=== PATIENT | female | born 1945 | race Caucasian/White ===

== ENCOUNTER → 2021-04-01 10:09 | Outpatient (REF) | payer MEDICARE, SELFPAY | LOC: ANHLAB 10:09 | PROVIDERS: PCP Internal Medicine; Visit Provider Nurse Practitioner | DX: L92.8 Other granulomatous disorders of the skin and subcutaneous tissue (principal) | CPT/HCPCS: 88305 ==

== ENCOUNTER 2022-08-29 16:25 | Inpatient (IN) | payer MEDICARE, SELFPAY ==
[2022-08-29] VITALS (30 sets, daily range): BP systolic 103–124; BP diastolic 43–64; PULSE 51–83; RESP 14–32; TEMP 36.7; O2SAT 92–100
--- NOTE | ~2022-08-29 | XR_ITS ---
EXAMINATION: XR chest 1V portable DATE: 09/01/2022 06:00 INDICATION: Shortness of breath TECHNIQUE: frontal view of the chest was obtained. COMPARISON: Chest radiograph and chest CT dated 08/29/2022 FINDINGS: Large-bore dual-lumen right internal jugular central venous catheter with distal tip at the high righ t atrium. Increasing diffuse interstitial pattern consistent with mild pulmonary edema. Opacities in the left lower lung zone and along the right lung base which could represent small bilateral pleural effusions with associated atelectasis and/or pneumonia, left greater than right. Heart size is normal . Calcified nodule at the left lung base and calcified mediastinal lymph nodes consistent with old gr anulomatous disease. IMPRESSION: 1. Increasing pulmonary edema edema. 2. Small bilateral pleural effusions with associated atelectasis and/or pneumonia in the lower lung z ones, left greater than right. Reviewed, dictated and finalized at location A. 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 Increasing pulmonary edema edema. 2. Small bilateral pleural effusions with associated atelectasis and/or pneumon ia in the lower lung zones, left greater than right.
--- NOTE | ~2022-08-29 | CT_ITS ---
EXAMINATION: CTA chest PE protocol DATE: 08/29/2022 21:52 INDICATION: Hypoxia TECHNIQUE: Computed tomography angiography (CTA) of the chest was performed with 100 mL Omnipaque-350 intravenous contrast timed to evaluate the pulmonary arteries. Coronal maximum intensity projection 3D-reconstructions were created by the technologist. Automated exposure control and iterative reconst ruction technique were employed. Exam dose: 404.91 mGy-cm total exam DLP. COMPARISON: 08/29/2022 2 view chest FINDINGS: There is diagnostic contrast enhancement of the pulmonary arteries and no evidence of pulmo nary embolism. No thoracic aortic aneurysm. There is thoracic aortic and great vessel and coronary artery calcificat ion. Cardiomegaly. No pericardial effusion. Moderate right and mild left pleural effusions. No hilar or mediastinal mass lesion or lymphadenopathy. The dependent lingula and more prominent atelectasis in both lower lobes. 9.7 mm nonspecific opacity, posterior right upper lobe. 5 mm opacity of middle lobe. Old healed left rib fractures. IMPRESSION: No evidence of pulmonary embolism Cardiac megaly, bilateral pleural effusions Dependent left upper lobe atelectasis and prominent compressive atelectasis of both lower lobes Nonspecific 9.7 mm right upper lobe and 5 mm middle lobe lung opacities; follow-up CT imaging should be considered. Reviewed, dictated and finalized at Location A. Reviewed, dictated and finalized at location A. IMPRESSION: No evidence of pulmonary embolism Cardiac megaly, bilateral pleural effusions Dependent left upper lobe atelectasis and prominent compressive atelectasis of both lower lobes Nonspecific 9.7 mm right upper lobe and 5 mm middle lobe lung opacities; follow -up CT imaging should be considered.
--- NOTE | ~2022-08-29 | XR_ITS ---
EXAMINATION: XR chest 1V portable DATE: 09/02/2022 14:52 INDICATION: Shortness of breath postdialysis TECHNIQUE: frontal view of the chest was obtained. COMPARISON: Chest radiograph dated 09/01/2022 FINDINGS: Improvement in prior pulmonary edema with resolution of the previous increased interstitial pattern. Persistent opacities at the bilateral lower lung zones with blunting at costophrenic angles, left gre ater than right consistent with small pleural effusions and associated basilar atelectasis although p neumonia not excludable. No new airspace opacities or pneumothorax. Heart size is normal. Large-bore dual-lumen right internal jugular central venous likely dialysis catheter with distal tip near the treadwell perior cavoatrial junction. IMPRESSION: 1. Resolution of prior pulmonary edema. 2. Persistent small bilateral pleural effusions with associated bibasilar atelectasis and/or pneumoni a, left greater than right. Reviewed, dictated and finalized at location A. CABINETMAKER IMPRESSION: 1. Resolution of prior pulmonary edema. 2. Persistent small bilateral pleural effusions with associated bibasilar atele ctasis and/or pneumonia, left greater than right.
--- NOTE | ~2022-08-29 | XR_ITS ---
EXAMINATION: XR chest 2V DATE: 08/29/2022 17:24 INDICATION: Shortness of breath TECHNIQUE: PA and lateral views of the chest were obtained. COMPARISON: None FINDINGS: Opacities at the bilateral lower lung zones. This includes small bilateral pleural effusions. No pneu mothorax. Heart size is normal. Large-bore dual-lumen right internal jugular central venous catheter with distal tip at the superior cavoatrial junction. Mild thoracic spondylosis with mild anterior wed ging of a couple mid thoracic vertebral bodies. IMPRESSION: 1. Small bilateral pleural effusions. 2. Opacities in bilateral lower lung zones which could represent associated atelectasis, pneumonia an d/or mild pulmonary edema. Reviewed, dictated and finalized at location B. IMPRESSION: 1. Small bilateral pleural effusions. 2. Opacities in bilateral lower lung zones which could represent associated ate lectasis, pneumonia and/or mild pulmonary edema.
--- NOTE | 2022-08-29 16:34 | ECG_ITS ---
Measurements Intervals [place] Rate: 52 P: 60 WV: 160 QRS: 94 QRSD: 114 T: 43 QT: 481 QTc: 451 Interpretive Statements SINUS BRADYCARDIA LOW QRS VOLTAGE IN PRECORDIAL LEADS INCOMPLETE RIGHT BUNDLE BRANCH BLOCK BORDERLINE R WAVE PROGRESSION, ANTERIOR LEADS BORDERLINE T WAVE ABNORMALITY- ANTEROLAT/INF LEADS BASELINE ARTIFACT- I, II, III, AVR, AVL, V1, V5-V6 BORDERLINE ECG NO PREVIOUS ECG AVAILABLE FOR COMPARISON Electronically Signed On 08-29-2022 21:29:44 CDT by Curtis Diop D.O.
[2022-08-29 18:54] LABS: Basophils Absolute Auto 0.1 K/mm3 (0.0-0.1); Basophils Percent Auto 0.6 % (0.2-1.2); Eosinophils Absolute Auto 0.3 K/mm3 (0-0.3); Eosinophils Percent Auto 3.1 % (0-4.4); Hematocrit 31.4 % (37.0-47.0); Hemoglobin 10.1 g/dL (12.0-15.0); Immature Granulocyte Absolute 0.03 K/mm3 (0.00-0.031); Immature Granulocyte Percent A 0.4 % (0-0.5); Lymphocytes Absolute Auto 1.72 K/mm3 (0.9-3.2); Lymphocytes Percent Auto 20.5 % (18.3-44.2); Mean Corpuscular HGB Conc 32.2 g/dl (32-36); Mean Corpuscular Hemoglobin 32.5 pg (26-34); Mean Platelet Volume 10.4 fl (7.4-10.4); Monocytes Absolute Auto 0.8 K/mm3 (0.1-0.6); Neutrophils Absolute Auto 5.5 K/mm3 (1.3-6.7); Neutrophils Percent Auto 65.4 % (45.5-73.1); Platelet Count Result 288 k/mm3 (150-375); Red Blood Count 3.11 M/mm3 (4.2-5.4); Red Cell Distribution Width 17.2 % (11.5-14.5); White Blood Count 8.4 K/mm3 (4.5-10.0)
[2022-08-29 19:18] LABS: Alanine Aminotransferase 15 U/L (6-35); Albumin Level 3.7 g/dL (3.5-5.1); Alkaline Phosphatase 68 U/L (38-126); Anion Gap 9 mmol/L (8-16); Aspartate Amino Transferase 32 U/L (14-36); Bilirubin,Total 1.4 mg/dL (0.2-1.3); Blood Urea Nitrogen 6 mg/dL (7-17); Calcium 7.9 mg/dL (8.4-10.2); Carbon Dioxide 31 mmol/L (22-30); Chloride 96 mmol/L (98-107); Estimated CRCL calculation 59 ml/min; Estimated Glomerular Filt Rate > 60; Glucose 99 mg/dL (65-110); Potassium 4.2 mmol/L (3.4-5.0); Sodium 136 mmol/L (137-145)
--- NOTE | 2022-08-29 19:19 | ED.SOB ---
HPI - SOB/Dyspnea General Chief Complaint: Shortness of Breath/Dyspnea Stated Complaint: SOB Time Seen by Provider: 08/29/22 18:41 History of Present Illness HPI Narrative: This is a 77-year-old female past medical history of end-stage renal disease on dialysis Thursday, A. fib on aspirin, with a home 2 L O2 requirement, who presents emergency department with hypotension and dyspnea after dialysis. She states during dialysis her blood pressure decreased to the low 80s systolic and she became short of breath with blue appearing fingertips. She denies associated chest pain or cough. She also complains of worsening shortness of breath while walking over the past week. Related Data Home Medications Medication Instructions Recorded Confirmed amlodipine 10 mg tablet 10 mg PO DAILY 04/01/21 aspirin 81 mg tablet,delayed 81 mg PO DAILY 04/01/21 release (Vira Low Dose Aspirin) fenofibric acid (choline) 135 mg cap PO 04/01/21 capsule,delayed release fosinopril 20 mg tablet 20 mg PO BID 04/01/21 furosemide 40 mg tablet 40 mg PO DAILY 04/01/21 metoprolol tartrate 100 mg tablet 100 mg PO BID 04/01/21 simvastatin 40 mg tablet 40 mg PO DAILY 04/01/21 Allergies Allergy/AdvReac Type Severity Reaction Status Date / Time No Known Allergies Allergy Verified 04/09/21 08:31 Review of Systems Review of Systems: CONSTITUTIONAL: Denies fever, chills, or sweats. EYES: Denies visual changes, redness, or discharge. ENT: Denies rhinorrhea, congestion, sore throat, or otalgia. CARDIOVASCULAR: Denies chest pain, palpitations, or edema. RESPIRATORY: Dyspnea denies cough GASTROINTESTINAL: Denies abdominal pain, nausea, vomiting, or diarrhea. GENITOURINARY: Denies dysuria or hematuria. SKIN: Denies rash or itching. MUSCULOSKELETAL: Denies back pain, joint pain, or myalgia. NEUROLOGIC: Denies headache, numbness, dizziness, or weakness. PSYCHIATRIC: Denies anxiety or depression. [facility] Past Medical History Medical History (Updated 08/29/22 @ 23:05 by Niall Epps MD) A-fib Atrial fibrillation status post cardioversion End stage renal disease Social History Social History (Updated 04/01/21 @ 09:42 by Letty L. Martinez, RN) Smoking status: Former smoker Alcohol intake: current Alcohol use details: daily Substance use: never Substance use type: does not use Exam Narrative: GENERAL: Well-developed, well-nourished, appears uncomfortable HEAD: Normocephalic, atraumatic. EYES: PERRLA and EOMI. ENT: Nares clear, no rhinorrhea or epistaxis. Mucous membranes moist. Oropharynx without tonsillar hypertrophy exudate or other lesions. NECK: Supple. No adenopathy or masses. No carotid bruits or JVD CHEST: Bilateral rales in the posterior lower lung dodd, right greater than left, no respiratory distress. No wheezes or rhonchi, dialysis catheter in right anterior chest wall, clean dry and intact HEART: Regular rate and rhythm. No murmur heard. Normal peripheral pulses. ABDOMEN: Soft, nontender, nondistended, normal active bowel sounds. EXTREMITIES: Left upper extremity surgical AV fistula with thrill, normal range of motion. No edema. SKIN: Warm, dry, no rash. NEURO: No focal deficits. Alert and oriented x3. PSYCH: Normal mood and affect. Course Course Emergency Course: 23:00 - CT PE negative for pulmonary embolism and demonstrates bilateral pleural effusions. Labs unremarkable considering patient's end-stage renal disease with troponin of 0.013 and potassium of 4.2. EKG not concerning for ischemia or peaked T-waves. Discussed patient with hospitalist, Dr. Lindsey who accepts admission for CHF work-up and possible thoracentesis. Discussed patient with rehabilitation medicine physician, Dr. Yates who will follow. Vital Signs Vital signs: Vital Signs Temperature 98.1 F 08/29/22 16:28 Pulse Rate 54 L 08/29/22 16:28 Respiratory Rate 20 08/29/22 16:28 Blood Pressure 103/43 L 08/29/22 16:28 Pulse Oximetry
[2022-08-29 19:37] LABS: INR 1.3; Prothrombin Time 15.9 Seconds (11.1-14.7)
[2022-08-29 19:43] LABS: Troponin I 0.013 ng/mL (0.000-0.034)
[2022-08-30] VITALS (28 sets, daily range): BP systolic 104–155; BP diastolic 44–63; PULSE 52–84; RESP 14–33; TEMP 36–37.5; O2SAT 97–100; BMI 30.6
--- NOTE | 2022-08-30 | ECHO_ITS ---
Patient Info Name: Francisca Meyers Age: 77 years : 1945 Gender: Female Ht: 66 in Wt: 195 lbs BSA: 2.06 m2 HR: 68 bpm BP: 155 / 56 mmHg Heart Rhythm: Sinus Rhythm Exam Date: 08/30/2022 9:26 AM Exam Location: [facility] Patient Status: Inpatient Admit Date: 08/29/2022 Staff Ordering Physician: Niall Epps MD Document Photographer: Lucia García RDCS Attending Provider: Tony Lindsey MD Referring Physician: Mich MAYER; Exam Type: CA echo doppler color flow Study Info Indications - evaluate for chf Complete two-dimensional, color flow and Doppler transthoracic echocardiogram is performed. Summary 1. Left ventricular chamber dimension is normal. 2. Left ventricular systolic function is normal, estimated at 60-65%. 3. There is mildly increased left ventricular wall thickness. 4. The left ventricular diastolic function is grade III diastolic dysfunction. 5. E/e' 20.3 is moderately elevated. 6. Left atrial chamber dimension is moderately enlarged. 7. Right atrial chamber dimension is moderately enlarged. 8. There is no aortic valve stenosis. 9. There is mild mitral valve regurgitation. Left Ventricle Left ventricular chamber dimension is normal. Left ventricular systolic function is normal, estimated at 60-65%. There is mildly increased left ventricular wall thickness. The left ventricular diastolic function is grade III diastolic dysfunction. E/e' 20.3 is moderately elevated. Right Ventricle Right ventricular chamber dimension is normal. Right ventricular systolic function is normal. Left Atria Left atrial chamber dimension is moderately enlarged. Right Atria Right atrial chamber dimension is moderately enlarged. Aortic Valve The aortic valve is not well visualized. There is no aortic valve stenosis. There is no aortic valve regurgitation. Pulmonic Valve The pulmonic valve is not well visualized. There is mild pulmonic regurgitation. Mitral Valve The mitral valve has normal leaflets. There is mild mitral valve regurgitation. The mitral valve annulus is mildly calcified. Tricuspid Valve Unable to estimate PA systolic pressure due to poor spectral resolution of tricuspid regurgitant jet velocity. The tricuspid valve leaflets are normal. There is mild tricuspid valve regurgitation. Pericardium/Pleural There is no pericardial effusion. Left pleural effusion. The pericardium appears normal. Inferior Vena Cava Normal inferior vena cava with >50% collapse upon inspiration consistent with normal right atrial pressure, 5 mmHg. Aorta The aortic root size at the sinus of Valsalva is normal. Left Ventricular Outflow Tract Name Value Normal LVOT 2D LVOT Diameter 2.0 cm LVOT Doppler LVOT Peak Gradient 7 mmHg LVOT Mean Gradient 4 mmHg LVOT VTI 28 cm LVOT VTI/AV VTI Ratio 0.8 LVOT Stroke Volume 89 ml LVOT CO 6.9 l/min LVOT CI 3.
--- NOTE | 2022-08-30 00:42 | PC.NURSE ---
RN sent blood x3 for pt. TNI and BNP unreceived x3. @nd RN in to draw blood
[2022-08-30 01:06] LABS: SARS-CoV-2 RNA PCR Negative
[2022-08-30 01:07] LABS: NT Pro B Type Natriuretic Pept 14000 pg/mL (5-100); Troponin I 0.013 ng/mL (0.000-0.034)
--- NOTE | 2022-08-30 02:39 | ADMGEN ---
This patient, Francisca Meyers, was admitted to IMU Room 205-02 on 08/30/22 at 0215. Patient/family oriented to hospital policies and general routines including ID bracelet, bed and alarms, visiting hours, pain management, procedures, bathroom and other care routines, personal items, smoking policy, room service/diet, and visiting hours. Information on how to activate the Rapid Response Team has been discussed. Patient/Family are encouraged to report perceived risks to care and to ask questions if they do not understand what they are told or what they should do.
[2022-08-30 05:38] LABS: Basophils Absolute Auto 0.1 K/mm3 (0.0-0.1); Basophils Percent Auto 0.7 % (0.2-1.2); Eosinophils Absolute Auto 0.2 K/mm3 (0-0.3); Eosinophils Percent Auto 3.2 % (0-4.4); Hemoglobin 9.7 g/dL (12.0-15.0); Immature Granulocyte Absolute 0.02 K/mm3 (0.00-0.031); Immature Granulocyte Percent A 0.3 % (0-0.5); Lymphocytes Absolute Auto 1.41 K/mm3 (0.9-3.2); Lymphocytes Percent Auto 19.9 % (18.3-44.2); Mean Corpuscular HGB Conc 31.3 g/dl (32-36); Mean Corpuscular Volume 102.3 fl (80-100); Mean Platelet Volume 10.7 fl (7.4-10.4); Monocytes Absolute Auto 0.7 K/mm3 (0.1-0.6); Monocytes Percent Auto 9.3 % (2.6-8.5); Neutrophils Absolute Auto 4.7 K/mm3 (1.3-6.7); Neutrophils Percent Auto 66.6 % (45.5-73.1); Platelet Count Result 252 k/mm3 (150-375); Red Blood Count 3.03 M/mm3 (4.2-5.4); Red Cell Distribution Width 17.2 % (11.5-14.5); White Blood Count 7.1 K/mm3 (4.5-10.0)
[2022-08-30 05:59] LABS: Alanine Aminotransferase 14 U/L (6-35); Albumin Level 3.5 g/dL (3.5-5.1); Alkaline Phosphatase 64 U/L (38-126); Anion Gap 12 mmol/L (8-16); Aspartate Amino Transferase 27 U/L (14-36); Bilirubin,Total 1.3 mg/dL (0.2-1.3); Blood Urea Nitrogen 8 mg/dL (7-17); Calcium 7.8 mg/dL (8.4-10.2); Carbon Dioxide 29 mmol/L (22-30); Chloride 97 mmol/L (98-107); Estimated CRCL calculation 40 ml/min; Estimated Glomerular Filt Rate 44; Glucose 98 mg/dL (65-110); Potassium 3.6 mmol/L (3.4-5.0); Sodium 138 mmol/L (137-145)
--- NOTE | 2022-08-30 07:12 | PM.IMHP ---
H&P: HPI History of Present Illness Date/Time: 08/30/22 07:12 Chief Complaint: shortness of breath Narrative: Francisca Meyers is a 77-year-old female with end-stage renal disease on hemodialysis MWF, paroxysmal atrial fibrillation s/p cardioversion and Eliquis, hypertension, hypothyroidism, and COPD. She presented to the ED for evaluation of shortness of breath and hypotension during dialysis. Her blood pressure reportedly dropped to the 80s systolic and she became dyspneic with blue appearing fingertips. The patient is a fair historian. She reports being overall healthy, but did not routinely visit the doctor's office, until January of this year when she had a fall in her home. She was down on the ground for approximately 3 days before being found. She was transferred to [facility] and reports being in a medically induced coma. She is not very clear on the details of this hospitalization, but reports developing paroxysmal atrial fibrillation, a bowel infection , and was started on hemodialysis at that time. She had a left forearm AV fistula placement around 08/09/22. She reports that yesterday during HD she felt strange and almost like an anxiety attack. She endorses increasing weakness, dyspnea on exertion and shortness of breath for approximately 1-2 weeks. She reports associated orthopnea and lower extremity edema. She wears 2 liters of oxygen at night since her discharge in January. She denies cough or sputum. No fever, chills or rigors. In the ED, her vitals were temp 98.1F, HR 65, RR 31, BP 113/54, spO2 98% on 2 liters nasal cannula. Lab work was significant for WBC 7.1, H/H 9.7/31, BUN 8, creatinine 1.2, GFR 44, but otherwise stable chemistry. Troponin was mildly elevated 0.013 and BNP 14,000. Chest x-ray shows small bilateral pleural effusions and opacities in bilateral lower lungs suggesting mild pulmonary edema. CTA chest was significant for cardiomegaly, bilateral pleural effusions and nonspecific 9.7 mm right upper lobe and 5 mm right middle lobe lung opacities. She is being admitted to the IMU for further evaluation of pulmonary edema. Review of Systems Review of Systems: All systems reviewed & are unremarkable except as noted in HPI and below PMFSH Past Medical History Medical History (Updated 08/30/22 @ 14:43 by Brittany Cabrera APRN) Atrial fibrillation status post cardioversion Borderline diabetes End stage renal disease Erythropoietin deficiency anemia Hyperlipidemia Hypertension Hypothyroid Renal osteodystrophy Surgical History Surgical History (Updated 08/30/22 @ 14:18 by Brittany Cabrera APRN) AV fistula History of hysterectomy partial History of tubal ligation at 32 yo Family History Family History Sibling Adopted (not a blood relative) Father Accident at workplace Mother Breast cancer Social History Social History (Updated 08/30/22 @ 14:40 by Brittany Cabrera APRN) Social History: Patient selects her son, Maxx Ramirez, as surrogate decision maker. Smoking packs per day: 2 Smoking cigarettes per day: 40.0 Years smoked: 40 Smoking pack-years: 80.00 Smoking status: Former smoker Tobacco type: cigarettes Second hand tobacco smoke exposure: No Alcohol intake: current Drinks per week: 7 Alcohol use details: daily wine or beer Substance use: never Substance use type: does not use Has the Lack of Transportation Kept You From Medical Appointments or From Getting Medications?: No Within the Past 12 Months, Were You Worried Whether Your Food Would Run Out Before You Got Money to Buy More?: Never True What is Your Housing Situation Today?: I Have Housing Are You Worried That in the Next 2 Months, You May Not Have Your Own Housing to Live In?: No Do You Have Trouble Paying Your Heating Or Electricity Bill?: No Do You Have Trouble Paying For Medicines?: No Are You Currently Unemployed and Looking for Work?:
[2022-08-30 10:42] LABS: Phosphorus 3.7 mg/dL (2.5-4.5)
[2022-08-30] MEDS: FUROSEMIDE INJ 40 MG/4 ML VIAL IV PUSH (10:50)
[2022-08-30] MEDS: POTASSIUM CHLORIDE 20 MEQ TABLET PO (10:50)
--- NOTE | 2022-08-30 11:23 | PM.CNNEP ---
Assessment and Plan Assessment and plan (1) End stage renal disease: Code(s): N18.6 - End stage renal disease Status: Chronic Assessment and Plan: the patient has end-stage renal disease. She has been on dialysis for about 6 months or so. It is not clear what the renal disease is from. Possibly hypertension, hyperlipidemia/vascular disease, or some sort of incident involving her fall and coma. She does make a little bit of urine. Her creatinine is only 1.2 but she was just dialyzed yesterday. she looks volume overloaded. I suspect that because she is not eating she is subtly losing weight and they are not adjusting her dry weight. I will check a 24hour urine For creatinine as well to see if her renal function might be improving. This can happen tomorrow she does have fluid overloaded so I am going to do a dry ultrafiltration today. (2) A-fib: Qualifiers: Atrial fibrillation type: paroxysmal Qualified Code(s): I48.0 - Paroxysmal atrial fibrillation Code(s): I48.91 - Unspecified atrial fibrillation Status: Chronic Assessment and Plan: The patient is in sinus rhythm now. She had atrial fibrillation before and was cardioverted. (3) Pulmonary edema: Code(s): J81.1 - Chronic pulmonary edema Status: Acute Assessment and Plan: the patient has pulmonary edema. She was hypoxic on admission and is on oxygen now by nasal cannula. Will remove fluid with dialysis and see if this improves. Will also give some diuretics to see if she can make urine on her own. (4) Hypertension: Code(s): I10 - Essential (primary) hypertension Status: Acute Assessment and Plan: She is on amlodipine but also on midodrine. I am not sure what is going on here. Her blood pressure ranges from 110-155. I am going to try holding the amlodipine and the midodrine and see what happens. I will leave the midodrine as a p.r.n.. she can also have albumin as well. (5) Renal osteodystrophy: Code(s): N25.0 - Renal osteodystrophy Status: Acute Assessment and Plan: Will check a phosphorus level in the morning (6) Erythropoietin deficiency anemia: Code(s): D63.1 - Anemia in chronic kidney disease Status: Acute Assessment and Plan: I will give her a dose of EPO today History of Present Illness Reason for Consult Consult date: 08/30/22 Chief Complaint Chief complaint: Bilateral pleural effusion History of Present Illness Narrative: Omi is a very pleasant 77-year-old lady who has end-stage renal disease on dialysis on Wednesdays and Fridays per Dr. Camp in [place]. She also has hypertension, atrial fibrillation, renal osteodystrophy, anemia of chronic kidney disease, GERD, hyperlipidemia. Patient said she was okay until last January when she fell. She was apparently in a coma and ended up on dialysis she says. She has been on dialysis ever since then. She has a dialysis catheter in for access and also has a fistula in her left arm. She goes to dialysis 3 times a week. she was having problems with low blood pressures and so she was placed on midodrine a few weeks ago. This has helped and so they have been able to keep the fluid off. She does sometimes have problems with low blood pressure. Yesterday the patient was on dialysis and after she was disconnected she had a spell where she became short of breath and her fingers turned blue. She did not weigh after dialysis. During the treatment her blood pressure was quite low she says but she is not sure how much fluid the nurses dialed in to remove and if the ultrafiltration rate was reduced when she had low blood pressure. The patient does have swelling but it has been present for months. Because of this spell mentioned above she came to the emergency room. In the ER she was evaluated found to have the swelling. Chest x-ray showed flu
[2022-08-30 12:35] LABS: Hepatitis B Surface Antigen Negative (Negative)
[2022-08-30 13:10] LABS: Hepatitis B Surface Anti Res Positive
--- NOTE | 2022-08-30 13:34 | PC.NURSE ---
Pt to dialysis via bed
[2022-08-30] MEDS: MIDODRINE HCL 10 MG TABLET PO (13:55)
[2022-08-30] MEDS: SODIUM CHLORIDE 0.9% IV 1,000 ML 999 ML IV CONT (13:56)
[2022-08-30] MEDS: EPOETIN ALFA-EPBX 10,000 UNITS/ML VIAL 10000 UNITS IV PUSH (14:21)
--- NOTE | 2022-08-30 15:28 | PCPTNOTE ---
Patient in dialysis. Will check status tomorrow to attempt to complete PT evaluation.
[2022-08-30] MEDS: FUROSEMIDE 80 MG TABLET PO (17:07)
[2022-08-30] MEDS: APIXABAN 2.5 MG TABLET PO (17:07)
[2022-08-30] MEDS: METOPROLOL TARTRATE 50 MG TAB PO (22:04)
[2022-08-30] MEDS: ATORVASTATIN 40 MG TABLET PO (22:04)
[2022-08-31] VITALS (14 sets, daily range): BP systolic 96–115; BP diastolic 43–60; PULSE 54–85; RESP 14–20; TEMP 36.2–36.6; O2SAT 93–100
--- NOTE | 2022-08-31 01:09 | PC.NURSE ---
Daylight Savings Time For Daylight Savings Time Ending in the Fall - Clocks are moved back. For Daylight Savings Time Beginning in the Spring - Clocks are moved ahead. For [facility], the time of change occurs at 0200 hrs. Time is taken from the server engineer. This entry on the patient's chart recognizes the change in time reflected during documentation. Example: 2 entries for vital signs may be charted for 0200 hrs.
[2022-08-31 05:51] LABS: Albumin Level 3.2 g/dL (3.5-5.1); Anion Gap 12 mmol/L (8-16); Blood Urea Nitrogen 11 mg/dL (7-17); Calcium 7.9 mg/dL (8.4-10.2); Carbon Dioxide 30 mmol/L (22-30); Chloride 94 mmol/L (98-107); Estimated CRCL calculation 28 ml/min; Estimated Glomerular Filt Rate 29; Glucose 92 mg/dL (65-110); Phosphorus 4.3 mg/dL (2.5-4.5); Potassium 3.4 mmol/L (3.4-5.0); Sodium 136 mmol/L (137-145)
[2022-08-31] MEDS: LEVOTHYROXINE SODIUM 75 MCG TABLET PO (05:52)
[2022-08-31] MEDS: FUROSEMIDE 80 MG TABLET PO ×2 (08:50→17:21)
[2022-08-31] MEDS: POTASSIUM CHLORIDE 20 MEQ TABLET.ER 40 MEQ PO (08:50)
[2022-08-31] MEDS: APIXABAN 2.5 MG TABLET PO ×2 (08:51→17:21)
[2022-08-31] MEDS: METOPROLOL TARTRATE 50 MG TAB PO ×2 (08:51→20:44)
--- NOTE | 2022-08-31 09:30 | PM.IMPN ---
Progress Note: A&P Assessment and Plan (1) Diastolic CHF, acute on chronic: Code(s): I50.33 - Acute on chronic diastolic (congestive) heart failure Status: Acute Assessment and Plan: Patient presented with c/o shortness of breath, dyspnea on exertion, and orthopnea. BNP 14,000. CXR and CTA chest consistent with bilateral pleural effusions and pulmonary edema. Patient now requiring 2L supplemental O2 at all times, not just at HS. Nephrology consulted and appreciate recommendations. Monitor strict I/O and daily weights. Transthoracic echocardiogram shows grade 3 diastolic dysfunction, normal LV systolic function, EF 60%, moderately enlarged right and left atria. H2FPEF 86% HFpEF Obtain patient's previous hospital records from [facility] 08/31/22 Weight 84.4 kg, was 88.6 on admission. -2 liters ultrafiltration on 08/30 and 300+ mL urine in the past 24 hours. 09/01/22 Weight 84.4 kg, Chest x-ray today with increasing pulmonary edema and small bilateral pleural effusions. Awaiting HD. Patient's usual HD on Mondays, Wednesdays, and Fridays. (2) Pulmonary edema: Qualifiers: Chronicity: acute Qualified Code(s): J81.0 - Acute pulmonary edema Code(s): J81.1 - Chronic pulmonary edema Status: Acute Assessment and Plan: Secondary to above (3) Hypoxia: Code(s): R09.02 - Hypoxemia Status: Acute Assessment and Plan: Secondary to above Wean O2 as tolerated to keep spO2>92% Patient currently on room air. Stable. (4) End stage renal disease: Code(s): N18.6 - End stage renal disease Status: Chronic Assessment and Plan: On dialysis MWF. BUN 8, creatinine 1.2, GFR 44 following HD 08/30. Unknown baseline. Nephrology consulted and appreciate assistance with HD management. Monitor electrolytes and I/O 08/31/22 BUN 11, creatinine 1.7, GFR 29, 24 hour urine in process. 09/01/22 BUN 15, creatinine 2.1, GFR 23. On furosemide 80 mg BID PO with 500 mL output today. (5) A-fib: Qualifiers: Atrial fibrillation type: paroxysmal Qualified Code(s): I48.0 - Paroxysmal atrial fibrillation Code(s): I48.91 - Unspecified atrial fibrillation Status: Chronic Assessment and Plan: Patient reports diagnosis of paroxysmal afib with January 2022 admission s/p electrical cardioversion. Continue renally dosed Eliquis 2.5 mg BID Continue metoprolol tartrate at lowered dose 50 mg BID due to hypotension with HD and plan for diuresis. 08/31/22 BP 107/43 to 96/60 Stable. (6) Hypothyroid: Qualifiers: Hypothyroidism type: acquired Qualified Code(s): E03.9 - Hypothyroidism, unspecified Code(s): E03.9 - Hypothyroidism, unspecified Status: Chronic Assessment and Plan: Chronic, continue levothyroxine. TSH 0.347, free T4 2.17 and within normal limits, Total T3 0.79 (7) Hypertension: Qualifiers: Hypertension type: primary hypertension Qualified Code(s): I10 - Essential (primary) hypertension Code(s): I10 - Essential (primary) hypertension Status: Chronic Assessment and Plan: Patient presented following hypotension during HD. BP 118/60, HR 66. Continue metoprolol at lowered dose. Hold amlodipine and midodrine. as above (8) Hyperlipidemia: Qualifiers: Hyperlipidemia type: mixed hyperlipidemia Qualified Code(s): E78.2 - Mixed hyperlipidemia Code(s): E78.5 - Hyperlipidemia, unspecified Status: Chronic Assessment and Plan: Chronic, stable. 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 H/H 9.05/25. Dialysis patient. Epogen per Nephrology. Stable. (10) Renal osteodystrophy: Code(s): N25.0 - Renal osteodystrophy Status: Chronic Assessment and Plan: Per nephrology Plan CODE STATUS: F
--- NOTE | 2022-08-31 10:00 | PM.PNNEP ---
Progress Note: A&P Assessment and Plan (1) End stage renal disease: Code(s): N18.6 - End stage renal disease Status: Chronic Assessment and Plan: the patient has end-stage renal disease. She has been on dialysis for about 6 months or so. It is not clear what the renal disease is from. Possibly hypertension, hyperlipidemia/vascular disease, or some sort of incident involving her fall and coma. She does make a little bit of urine. she is incontinent. Will have them use a David catheter to get the fluid off. Will check a renal panel tomorrow and may do dialysis if the numbers are worse. Meantime will wait for the 24hour urine and see if she is able to come off dialysis. (2) A-fib: Qualifiers: Atrial fibrillation type: paroxysmal Qualified Code(s): I48.0 - Paroxysmal atrial fibrillation Code(s): I48.91 - Unspecified atrial fibrillation Status: Chronic Assessment and Plan: The patient is in sinus rhythm now. She had atrial fibrillation before and was cardioverted. (3) Pulmonary edema: Qualifiers: Chronicity: acute Qualified Code(s): J81.0 - Acute pulmonary edema Code(s): J81.1 - Chronic pulmonary edema Status: Acute Assessment and Plan: the patient has pulmonary edema. This is better. She is on furosemide 80 twice a day (4) Hypertension: Qualifiers: Hypertension type: primary hypertension Qualified Code(s): I10 - Essential (primary) hypertension Code(s): I10 - Essential (primary) hypertension Status: Chronic Assessment and Plan: her blood pressure is doing fine off the amlodipine. She got a dose of midodrine yesterday to prevent the blood pressure from dropping on dialysis and her blood pressure did fine. (5) Renal osteodystrophy: Code(s): N25.0 - Renal osteodystrophy Status: Chronic Assessment and Plan: Phosphorus is fine (6) Erythropoietin deficiency anemia: Code(s): D63.1 - Anemia in chronic kidney disease Status: Chronic Assessment and Plan: check CBC in the morning Subjective Date/time seen: 08/31/22 10:00 Interval history: Patient feels good today. No episodes of shortness of breath since taking fluid off yesterday. No chest pain. Review of Systems Cardiovascular: Cardiovascular: Reports no additional cardiovascular complaints Respiratory: Respiratory: Reports no additional respiratory complaints Gastrointestinal: Gastrointestinal: Reports no additional gastrointestinal complaints Genitourinary: Genitourinary: Reports no additional female genitourinary complaints Exam Narrative: WDWN in NAD skin no rash head ncat lungs clear cor reg no rub abd BS+ nontender and soft ext 1+ bilateral edema. Objective Data Vital Signs Vital Signs: Vital Signs - 24 hr 08/30/22 12:00 08/30/22 12:00 08/30/22 12:00 Temperature 37.1 C Pulse Rate 66 66 Respiratory Rate 14 Blood Pressure 110/47 L Pulse Oximetry 100 100 Oxygen Delivery Nasal Cannula Oxygen Flow Rate 2 08/30/22 13:53 08/30/22 13:40 08/30/22 13:40 Temperature 36.7 C Pulse Rate 63 62 Respiratory Rate 18 Blood Pressure 118/53 L 118/53 L Pulse Oximetry Oxygen Delivery Oxygen Flow Rate 2 08/30/22 14:10 08/30/22 14:30 08/30/22 14:00 Temperature Pulse Rate 66 60 64 Respiratory Rate Blood Pressure 118/60 115/57 L Pulse Oximetry Oxygen Delivery Oxygen Flow Rate 08/30/22 14:50 08/30/22 15:10 08/30/22 15:30 Temperature Pulse Rate 62 62 57 L Respiratory Rate Blood Pressure 121/58 L 130/63 124/63 Pulse Oximetry Oxygen Delivery Oxygen Flow Rate 08/30/22 15:53 08/30/22 16:03 08/30/22 16:00 Temperature 36.6 C 36.0 C L Pulse Rate 65 57 L 68 Respiratory Rate 16 16 Blood Pressure 138/58 L 115/57 L 120/54 L Pulse Oximetry 100 Oxygen Delivery Oxygen Flow Rate
[2022-08-31] MEDS: ATORVASTATIN 40 MG TABLET PO (20:44)
[2022-09-01] VITALS (12 sets, daily range): BP systolic 104–128; BP diastolic 47–88; PULSE 55–83; RESP 20–26; TEMP 36–36.8; O2SAT 94–100
[2022-09-01 04:54] LABS: Hematocrit 32.6 % (37.0-47.0); Hemoglobin 10.1 g/dL (12.0-15.0); Mean Corpuscular Hemoglobin 31.8 pg (26-34); Mean Corpuscular Volume 102.5 fl (80-100); Mean Platelet Volume 10.4 fl (7.4-10.4); Platelet Count Result 260 k/mm3 (150-375); Red Blood Count 3.18 M/mm3 (4.2-5.4); Red Cell Distribution Width 16.6 % (11.5-14.5); White Blood Count 7.1 K/mm3 (4.5-10.0)
[2022-09-01 05:04] LABS: Albumin Level 3.3 g/dL (3.5-5.1); Anion Gap 12 mmol/L (8-16); Blood Urea Nitrogen 15 mg/dL (7-17); Calcium 8.5 mg/dL (8.4-10.2); Carbon Dioxide 31 mmol/L (22-30); Chloride 94 mmol/L (98-107); Estimated CRCL calculation 23 ml/min; Estimated Glomerular Filt Rate 23; Glucose 97 mg/dL (65-110); Phosphorus 4.1 mg/dL (2.5-4.5); Potassium 3.6 mmol/L (3.4-5.0); Sodium 137 mmol/L (137-145)
[2022-09-01 05:54] LABS: Thyroid Stimulating Hormone Reflex 0.347 uIU/mL (0.465-4.68)
[2022-09-01] MEDS: LEVOTHYROXINE SODIUM 75 MCG TABLET PO (06:06)
[2022-09-01 06:43] LABS: Free T4 Free Thyroxine Reflex 2.17 ng/dL (0.78-2.19)
[2022-09-01 07:50] LABS: Total Triiodothyronine (T3) 0.79 NG/ML (0.97-1.69)
[2022-09-01] MEDS: POTASSIUM CHLORIDE 20 MEQ TABLET.ER 40 MEQ PO (09:03)
[2022-09-01] MEDS: APIXABAN 2.5 MG TABLET PO ×2 (09:03→17:09)
[2022-09-01] MEDS: FUROSEMIDE 80 MG TABLET PO ×2 (09:04→17:09)
[2022-09-01] MEDS: METOPROLOL TARTRATE 50 MG TAB PO ×2 (09:04→20:25)
--- NOTE | 2022-09-01 11:52 | P.PNNP_ITS ---
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 * plan HD today but if unable given number of patient's requirng dialysis today, will plan first thing in AM (2) Pulmonary edema: Qualifiers: Chronicity: acute Qualified Code(s): J81.0 - Acute pulmonary edema Code(s): J81.1 - Chronic pulmonary edema Status: Acute Assessment and Plan: * as noted by admission CXR as well as CXR this AM * continue diuretic therapy * fluid removal/ultrafiltration as tolerated by hemodynamics * follow respiratory status (3) Hypertension: Qualifiers: Hypertension type: primary hypertension Qualified Code(s): I10 - Essential (primary) hypertension Code(s): I10 - Essential (primary) hypertension Status: Chronic Assessment and Plan: * BP medications on hold at this time * use midodrine and albumin for relative hypotension * follow trend of hemodynamics (4) Erythropoietin deficiency anemia: Code(s): D63.1 - Anemia in chronic kidney disease Status: Chronic Assessment and Plan: * due to dialysis dependence * Epogen with HD * follow trend of H/H Will continue to follow. Subjective Date/time seen: 09/01/22 11:52 Chart reviewed -- assuming care from Dr. Yates; breathing appears to be doing better at the time of my visit; no apparent distress voiced at this time; no issues/events overnight or earlier this morning; some urine output noted with use of diuretic therapy; CXR results noted this AM. Exam Narrative: General: elderly WD/WN female in NAD Heart: normal S1 and S2; no rub Lungs: coarse with few bibasilar crackles Abdomen: soft, nontender, nondistended, positive bowel sounds Extremities: no cyanosis or clubbing; 1+ edema Skin: warm and dry Objective Data Vital Signs Vital Signs: Vital Signs Temp Pulse Resp BP Pulse Ox O2 Del Method 09/01/22 11:51 36.6 C 55 L 20 104/60 94 09/01/22 08:00 Room Air 09/01/22 08:00 70 09/01/22 08:00 36.0 C L 67 26 H 128/47 L 95 09/01/22 06:00 61 09/01/22 04:00 68 09/01/22 04:00 36.8 C 68 20 111/48 L 98 09/01/22 02:00 62 09/01/22 00:00 62 08/31/22 23:50 36.2 C L 63 18 113/45 L 98 08/31/22 20:00 85 20 100 Room Air 08/31/22 20:00 85 08/31/22 20:44 85 08/31/22 20:00 36.4 C 68 20 115/44 L 100 Intake/Output Intake/Output: Intake & Output 08/30/22 08/31/22 08/31/22
--- NOTE | 2022-09-01 11:52 | PM.PNNEP ---
Progress Note: A&P Assessment and Plan (1) End stage renal disease: Code(s): N18.6 - End stage renal disease Status: Chronic Assessment and Plan: has been on dialysis for the last 6 months hospitalized at 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 plan HD today but if unable given number of patient's requirng dialysis today, will plan first thing in AM (2) Pulmonary edema: Qualifiers: Chronicity: acute Qualified Code(s): J81.0 - Acute pulmonary edema Code(s): J81.1 - Chronic pulmonary edema Status: Acute Assessment and Plan: as noted by admission CXR as well as CXR this AM continue diuretic therapy fluid removal/ultrafiltration as tolerated by hemodynamics follow respiratory status (3) Hypertension: Qualifiers: Hypertension type: primary hypertension Qualified Code(s): I10 - Essential (primary) hypertension Code(s): I10 - Essential (primary) hypertension Status: Chronic Assessment and Plan: BP medications on hold at this time use midodrine and albumin for relative hypotension follow trend of hemodynamics (4) Erythropoietin deficiency anemia: Code(s): D63.1 - Anemia in chronic kidney disease Status: Chronic Assessment and Plan: due to dialysis dependence Epogen with HD follow trend of H/H Will continue to follow. Subjective Date/time seen: 09/01/22 11:52 Chart reviewed -- assuming care from Dr. Yates; breathing appears to be doing better at the time of my visit; no apparent distress voiced at this time; no issues/events overnight or earlier this morning; some urine output noted with use of diuretic therapy; CXR results noted this AM. Exam Narrative: General: elderly WD/WN female in NAD Heart: normal S1 and S2; no rub Lungs: coarse with few bibasilar crackles Abdomen: soft, nontender, nondistended, positive bowel sounds Extremities: no cyanosis or clubbing; 1+ edema Skin: warm and dry Objective Data Vital Signs Vital Signs: Vital Signs Temp Pulse Resp BP Pulse Ox O2 Del Method 09/01/22 11:51 36.6 C 55 L 20 104/60 94 09/01/22 08:00 Room Air 09/01/22 08:00 70 09/01/22 08:00 36.0 C L 67 26 H 128/47 L 95 09/01/22 06:00 61 09/01/22 04:00 68 09/01/22 04:00 36.8 C 68 20 111/48 L 98 09/01/22 02:00 62 09/01/22 00:00 62 08/31/22 23:50 36.2 C L 63 18 113/45 L 98 08/31/22 20:00 85 20 100 Room Air 08/31/22 20:00 85 08/31/22 20:44 85 08/31/22 20:00 36.4 C 68 20 115/44 L 100 Intake/Output Intake/Output: Intake & Output 08/30/22 08/31/22 08/31/22 09/01/22 00:59 00:59 23:59 23:59 Intake Total 740 Output Total 500 Balance 240 Meds/Results Medications: Active Medications Generic Name Dose Route Start Last Admin Trade Name Freq PRN Reason Stop Dose Admin Acetaminophen 650 mg 08/30/22 10:15 Acetaminophen 325 Mg Tablet PO Q4H PRN Mild Pain (1-3) or Fever Apixaban 2.5 mg 08/30/22 17:00 09/01/22 09:03 Apixaban 2.5 Mg Tablet PO 2.5 mg BID RIMMA Administration Atorvastatin Calcium 40 mg 08/30/22 21:00 08/31/22 20:44 Atorvastatin 40 Mg Tablet PO 40 mg HS RIMMA Administration Epoetin Freddie-epbx 4,000 units 09/01/22 23:29 Epoetin Freddie-Epbx 4,000 Units/Ml Vial IV PUSH 09/01/22 23:3
[2022-09-01] MEDS: ATORVASTATIN 40 MG TABLET PO (20:24)
[2022-09-02] VITALS (19 sets, daily range): BP systolic 85–146; BP diastolic 36–61; PULSE 58–84; RESP 16–22; TEMP 34.4–36.7; O2SAT 99–100
[2022-09-02 05:14] LABS: Albumin Level 3.3 g/dL (3.5-5.1); Anion Gap 9 mmol/L (8-16); Blood Urea Nitrogen 17 mg/dL (7-17); Calcium 8.5 mg/dL (8.4-10.2); Carbon Dioxide 29 mmol/L (22-30); Chloride 96 mmol/L (98-107); Estimated CRCL calculation 24 ml/min; Estimated Glomerular Filt Rate 24; Glucose 95 mg/dL (65-110); Magnesium 1.6 mg/dL (1.6-2.3); Potassium 3.8 mmol/L (3.4-5.0); Sodium 134 mmol/L (137-145)
[2022-09-02] MEDS: LEVOTHYROXINE SODIUM 75 MCG TABLET PO (05:36)
[2022-09-02] MEDS: APIXABAN 2.5 MG TABLET PO (08:30)
[2022-09-02] MEDS: MIDODRINE HCL 10 MG TABLET PO (08:36)
[2022-09-02] MEDS: EPOETIN ALFA-EPBX 4,000 UNITS/ML VIAL 4000 UNITS IV PUSH (09:40)
[2022-09-02] MEDS: SODIUM CHLORIDE 0.9% IV 1,000 ML 999 ML IV CONT (09:40)
--- NOTE | 2022-09-02 09:57 | P.PNNP_ITS ---
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/dialysis due to poor urine output with no response to diuretics and azotemia * during hospital stay, despite low creatinine, unable to maintain eu volemia without dialysis * follow-up on 24hr urine collection results * however, based on CXR results and history, it would seem she continues to need dialysis to maintain euvolemia (and necessity of fluid removal) * HD today and eventually transition back to M/W/F schedule (2) Pulmonary edema: Qualifiers: Chronicity: acute Qualified Code(s): J81.0 - Acute pulmonary edema Code(s): J81.1 - Chronic pulmonary edema Status: Acute Assessment and Plan: * as noted by admission CXR as well as CXR yesterday * continue diuretic therapy (since she has some residual kidney function) * continue fluid removal/ultrafiltration as tolerated by hemodynamics * follow respiratory status (3) Hypertension: Qualifiers: Hypertension type: primary hypertension Qualified Code(s): I10 - Essential (primary) hypertension Code(s): I10 - Essential (primary) hypertension Status: Chronic Assessment and Plan: * BP medications on hold at this time * use midodrine and albumin for relative hypotension * follow trend of hemodynamics (4) Erythropoietin deficiency anemia: Code(s): D63.1 - Anemia in chronic kidney disease Status: Chronic Assessment and Plan: * due to dialysis dependence * Epogen with HD * follow trend of H/H Not opposed to discharge from renal perspective if otherwise medically stable -- she can resume her outpatient dialysis schedule tomorrow at her outpatient dialysis [facility]. Will continue to follow. Subjective Date/time seen: 09/02/22 09:57 Tolerating hemodialysis/UF treatment at the time of my visit (seen on HD at 9:50AM); CXR still with evidence of fluid despite diuretic therapy and negative fluid balance (although renal function relatively stable); furthermore, noted tachypenia by HD nurse on arrival to HD treatment room; no distress currently. Exam Narrative: General: elderly WD/WN female in NAD Heart: normal S1 and S2; no rub Lungs: coarse with bibasilar crackles Abdomen: soft, nontender, nondistended, positive bowel sounds Extremities: no cyanosis or clubbing; 1+ edema Skin: warm and intact Objective Data Vital Signs Vital Signs: Vital Signs Temp Pulse Resp BP Pulse Ox O2 Del Method O2 Flow Rate 09/02/22 09:50 72 93/52 L 09/02/22 09:30 69 107/54 L 09/02/22 09:10 74 119/54 L 09/02/22 08:40 36.7 C 72 22 H 146/55 H 09/02/22 08:54 71 116/61 09/02/22 08:00 36.6 C 64 20 115/53 L 100 09/02/22 04:00 36.7 C 68 18 113/51 L 99 09/02/22 04:00 62 09/02/22 02:00 58 L 09/02/22 00:00 59 L 09/02/22 00:00 36.1 C L 61 20 99/61 L 100 09/01/22 22:00 65
--- NOTE | 2022-09-02 09:57 | PM.PNNEP ---
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 due to poor urine output with no response to diuretics and azotemia during hospital stay, despite low creatinine, unable to maintain euvolemia without dialysis follow-up on 24hr urine collection results however, based on CXR results and history, it would seem she continues to need dialysis to maintain euvolemia (and necessity of fluid removal) HD today and eventually transition back to M/W/F schedule (2) Pulmonary edema: Qualifiers: Chronicity: acute Qualified Code(s): J81.0 - Acute pulmonary edema Code(s): J81.1 - Chronic pulmonary edema Status: Acute Assessment and Plan: as noted by admission CXR as well as CXR yesterday continue diuretic therapy (since she has some residual kidney function) continue fluid removal/ultrafiltration as tolerated by hemodynamics follow respiratory status (3) Hypertension: Qualifiers: Hypertension type: primary hypertension Qualified Code(s): I10 - Essential (primary) hypertension Code(s): I10 - Essential (primary) hypertension Status: Chronic Assessment and Plan: BP medications on hold at this time use midodrine and albumin for relative hypotension follow trend of hemodynamics (4) Erythropoietin deficiency anemia: Code(s): D63.1 - Anemia in chronic kidney disease Status: Chronic Assessment and Plan: due to dialysis dependence Epogen with HD follow trend of H/H Not opposed to discharge from renal perspective if otherwise medically stable -- she can resume her outpatient dialysis schedule tomorrow at her outpatient dialysis [facility]. Will continue to follow. Subjective Date/time seen: 09/02/22 09:57 Tolerating hemodialysis/UF treatment at the time of my visit (seen on HD at 9:50AM); CXR still with evidence of fluid despite diuretic therapy and negative fluid balance (although renal function relatively stable); furthermore, noted tachypenia by HD nurse on arrival to HD treatment room; no distress currently. Exam Narrative: General: elderly WD/WN female in NAD Heart: normal S1 and S2; no rub Lungs: coarse with bibasilar crackles Abdomen: soft, nontender, nondistended, positive bowel sounds Extremities: no cyanosis or clubbing; 1+ edema Skin: warm and intact Objective Data Vital Signs Vital Signs: Vital Signs Temp Pulse Resp BP Pulse Ox O2 Del Method O2 Flow Rate 09/02/22 09:50 72 93/52 L 09/02/22 09:30 69 107/54 L 09/02/22 09:10 74 119/54 L 09/02/22 08:40 36.7 C 72 22 H 146/55 H 09/02/22 08:54 71 116/61 09/02/22 08:00 36.6 C 64 20 115/53 L 100 09/02/22 04:00 36.7 C 68 18 113/51 L 99 09/02/22 04:00 62 09/02/22 02:00 58 L 09/02/22 00:00 59 L 09/02/22 00:00 36.1 C L 61 20 99/61 L 100 09/01/22 22:00 65 09/01/22 20:00 65 20 100 Nasal Cannula 2 09/01/22 20:00 65 09/01/22 20:00 36.8 C 70 20 123/88 100 09/01/22 20:25 83 09/01/22 16:00 71 09/01/22 12:00 59 L 09/01/22 15:58 36.8 C 65 20 116/49 L 97 09/01/22 11:51 36.6 C 55 L 20 104/60 94 Intake/Output Intake/Output: Intake & Output 08/31/22 08/31/22 09/01/22 09/02/22 00:59 23:59 23:59 23:59 Intake Total 1040 240 Output Total 1700 1550 Balance -660 -1310 Meds/Results Medications: Active Medications Generic Name Dose Route Start Last Admin Trade Name Freq PRN Re
--- NOTE | 2022-09-02 10:36 | PC.NURSE ---
0832-to dialysis room for treatment via bed accompanied by staff
[2022-09-02] MEDS: POTASSIUM CHLORIDE 20 MEQ TABLET.ER 40 MEQ PO (12:16)
[2022-09-02] MEDS: FUROSEMIDE 80 MG TABLET PO (12:16)
[2022-09-02] MEDS: METOPROLOL TARTRATE 50 MG TAB PO (12:17)
--- NOTE | 2022-09-02 14:24 | PM.DS ---
DS: Admitting Diagnosis Discharge Date 09/02/22 1424 Admitting Diagnosis Diastolic CHF, acute on chronic exacerbation Pulmonary edema Hypoxia End stage renal disease Chronic A-fib Hypothyroid Hypertension Hyperlipidemia Erythropoietin deficiency anemia Renal osteodystrophy DS: Discharge Diagnosis Discharge Diagnosis (1) Diastolic CHF, acute on chronic: Code(s): I50.33 - Acute on chronic diastolic (congestive) heart failure Status: Acute (2) Hypoxia: Code(s): R09.02 - Hypoxemia Status: Acute (3) End stage renal disease: Code(s): N18.6 - End stage renal disease Status: Chronic (4) A-fib: Qualifiers: Atrial fibrillation type: paroxysmal Qualified Code(s): I48.0 - Paroxysmal atrial fibrillation Code(s): I48.91 - Unspecified atrial fibrillation Status: Chronic (5) Hypothyroid: Qualifiers: Hypothyroidism type: acquired Qualified Code(s): E03.9 - Hypothyroidism, unspecified Code(s): E03.9 - Hypothyroidism, unspecified Status: Chronic (6) Hypertension: Qualifiers: Hypertension type: primary hypertension Qualified Code(s): I10 - Essential (primary) hypertension Code(s): I10 - Essential (primary) hypertension Status: Chronic (7) Hyperlipidemia: Qualifiers: Hyperlipidemia type: mixed hyperlipidemia Qualified Code(s): E78.2 - Mixed hyperlipidemia Code(s): E78.5 - Hyperlipidemia, unspecified Status: Chronic (8) Erythropoietin deficiency anemia: Code(s): D63.1 - Anemia in chronic kidney disease Status: Chronic (9) Renal osteodystrophy: Code(s): N25.0 - Renal osteodystrophy Status: Chronic DS: Summary Hospital Course Reason for hospitalization: shortness of breath Hospital Course: Francisca Meyers is a 77-year-old female with end-stage renal disease on hemodialysis MWF, paroxysmal atrial fibrillation s/p cardioversion and Eliquis, hypertension, hypothyroidism, and COPD. She presented to the ED for evaluation of shortness of breath and hypotension during dialysis. Her blood pressure reportedly dropped to the 80s systolic and she became dyspneic with blue appearing fingertips. The patient is a fair historian. She reported being overall healthy, but did not routinely visit the doctor's office, until January of this year when she had a fall in her home. She was down on the ground for approximately 3 days before being found. She was transferred to [facility] and reports being in a medically induced coma. She is not very clear on the details of this hospitalization, but reported developing paroxysmal atrial fibrillation, a bowel infection , and was started on hemodialysis at that time. She had a left forearm AV fistula placement around 08/09/22. She reported that during HD she felt strange and almost like an anxiety attack. She endorsed increasing weakness, dyspnea on exertion and shortness of breath for approximately 1-2 weeks. She reported associated orthopnea and lower extremity edema. She wears 2 liters of oxygen at night since her discharge in January, but not typically during the day. She denied cough or sputum. No fever, chills or rigors. In the ED, her vitals were temp 98.1F, HR 65, RR 31, BP 113/54, spO2 98% on 2 liters nasal cannula. Lab work was significant for WBC 7.1, H/H 9.7/31, BUN 8, creatinine 1.2, GFR 44, but otherwise stable chemistry. Troponin was mildly elevated 0.013 and BNP 14,000. Chest x-ray shows small bilateral pleural effusions and opacities in bilateral lower lungs suggesting mild pulmonary edema. CTA chest was significant for cardiomegaly, bilateral pleural effusions and nonspecific 9.7 mm right upper lobe and 5 mm right middle lobe lung opacities. She was admitted to the IMU for further evaluation of pulmonary edema. Diastolic CHF, acute on chronic Patient presented with c/o shortness of breath, dyspnea on exertion, and orthopnea. BNP 14,000. C
[2022-09-02 18:29] LABS: Collection Time Urine 24 HOURS
[2022-09-02 19:28] LABS: Patient Weight 186 Lbs; Total Volume 24 Hour Urine 2000 ml
[2022-09-02 19:29] LABS: Total Volume 24 Hour Urine 2000 ml
[2022-09-02 19:38] LABS: Creatinine Clearance Urine 23.4 ml/min (75-125)
[2022-09-02 19:39] LABS: Creatinine 24 Hour Urine 0.6 gm/24 (0.8-1.8); Creatinine Urine 32.1 mg/dL
--- NOTE | 2022-09-09 21:43 | PM.IMPN ---
Progress Note: A&P Assessment and Plan (1) Diastolic CHF, acute on chronic: Code(s): I50.33 - Acute on chronic diastolic (congestive) heart failure Status: Acute Assessment and Plan: Patient presented with c/o shortness of breath, dyspnea on exertion, and orthopnea. BNP 14,000. CXR and CTA chest consistent with bilateral pleural effusions and pulmonary edema. Patient now requiring 2L supplemental O2 at all times, not just at HS. Nephrology consulted and appreciate recommendations. Monitor strict I/O and daily weights. Transthoracic echocardiogram shows grade 3 diastolic dysfunction, normal LV systolic function, EF 60%, moderately enlarged right and left atria. H2FPEF 86% HFpEF Obtain patient's previous hospital records from [facility] 08/31/22 Weight 84.4 kg, was 88.6 on admission. -2 liters ultrafiltration on 08/30 and 300+ mL urine in the past 24 hours. 09/01/22 Weight 84.4 kg, Chest x-ray today with increasing pulmonary edema and small bilateral pleural effusions. Awaiting HD. Patient's usual HD on Mondays, Wednesdays, and Fridays. (2) Hypoxia: Code(s): R09.02 - Hypoxemia Status: Acute Assessment and Plan: Secondary to above Wean O2 as tolerated to keep spO2>92% Patient currently on room air. Stable. (3) End stage renal disease: Code(s): N18.6 - End stage renal disease Status: Chronic Assessment and Plan: On dialysis MWF. BUN 8, creatinine 1.2, GFR 44 following HD 08/30. Unknown baseline. Nephrology consulted and appreciate assistance with HD management. Monitor electrolytes and I/O 08/31/22 BUN 11, creatinine 1.7, GFR 29, 24 hour urine in process. 09/01/22 BUN 15, creatinine 2.1, GFR 23. On furosemide 80 mg BID PO with 500 mL output today. (4) A-fib: Qualifiers: Atrial fibrillation type: paroxysmal Qualified Code(s): I48.0 - Paroxysmal atrial fibrillation Code(s): I48.91 - Unspecified atrial fibrillation Status: Chronic Assessment and Plan: Patient reports diagnosis of paroxysmal afib with January 2022 admission s/p electrical cardioversion. Continue renally dosed Eliquis 2.5 mg BID Continue metoprolol tartrate at lowered dose 50 mg BID due to hypotension with HD and plan for diuresis. Stable. (5) Hypothyroid: Qualifiers: Hypothyroidism type: acquired Qualified Code(s): E03.9 - Hypothyroidism, unspecified Code(s): E03.9 - Hypothyroidism, unspecified Status: Chronic Assessment and Plan: Chronic, continue levothyroxine. TSH 0.347, free T4 2.17 and within normal limits, Total T3 0.79 (6) Hypertension: Qualifiers: Hypertension type: primary hypertension Qualified Code(s): I10 - Essential (primary) hypertension Code(s): I10 - Essential (primary) hypertension Status: Chronic Assessment and Plan: Patient presented following hypotension during HD. Continue metoprolol at lowered dose. Hold amlodipine and midodrine. as above (7) Hyperlipidemia: Qualifiers: Hyperlipidemia type: mixed hyperlipidemia Qualified Code(s): E78.2 - Mixed hyperlipidemia Code(s): E78.5 - Hyperlipidemia, unspecified Status: Chronic Assessment and Plan: Chronic, stable. Continue atorvastatin (8) Erythropoietin deficiency anemia: Code(s): D63.1 - Anemia in chronic kidney disease Status: Chronic Assessment and Plan: Chronic, stable. Dialysis patient. Epogen per Nephrology. Stable. (9) Renal osteodystrophy: Code(s): N25.0 - Renal osteodystrophy Status: Chronic Assessment and Plan: Per nephrology Plan CODE STATUS: FULL CODE Disposition: Home with her sister when medically stable. Time Spent With Patient Time with patient: 15 - 25 minutes Subjective Date/time seen: 09/09/22 21:43 LATE ENTRY FOR 09/01/22 No new complaints or overnight events. Her breathing is improving. She is awaiting HD thi
== END 2022-09-02 15:27 | disposition home or self-care (01) | DRG 291 ==
LOC: ANHED 23:05 → ANHIMU 08-30 01:13
PROVIDERS: Internal Medicine Nephrology; Admitting Provider Internal Medicine; Emergency Provider Preventive Medicine Aerospace Medicine; PCP Internal Medicine; Visit Provider Nurse Practitioner Family
DX: I13.2 Hypertensive heart and chronic kidney disease with heart failure and with stage 5 chronic kidney disease, or end stage renal disease (principal); I50.33 Acute on chronic diastolic (congestive) heart failure; N18.6 End stage renal disease; D63.1 Anemia in chronic kidney disease; E03.9 Hypothyroidism, unspecified; E78.2 Mixed hyperlipidemia; I95.3 Hypotension of hemodialysis; I48.0 Paroxysmal atrial fibrillation; J44.9 Chronic obstructive pulmonary disease, unspecified; N25.0 Renal osteodystrophy; R73.03 Prediabetes; R09.02 Hypoxemia; Z87.891 Personal history of nicotine dependence; Z20.822 Contact with and (suspected) exposure to COVID-19; Z99.2 Dependence on renal dialysis; Z79.01 Long term (current) use of anticoagulants; Z99.81 Dependence on supplemental oxygen; Z90.710 Acquired absence of both cervix and uterus
CPT/HCPCS: 36415; 71045; 71046; 71275; 80053; 80069; 81050; 82570; 82575; 83735; 83880; 84100; 84439; 84443; 84480; 84484; 85025; 85027; 85610; 86706; 87040; 87340; 93005; 93306; 96374; 96375; 97161; 97165; 99285; A9270; G0257; G0378; J1644; J1940; J7030; Q5105; Q9967; U0003; U0005

== ENCOUNTER 2024-08-07 02:03 | Inpatient (IN) | payer MEDICARE, SELFPAY ==
[2024-08-07] VITALS (19 sets, daily range): BP systolic 95–128; BP diastolic 40–105; PULSE 55–91; RESP 16–29; TEMP 36.7–37.5; O2SAT 93–99; BMI 33.4; BMI 33.7
--- NOTE | ~2024-08-07 | US_ITS ---
EXAMINATION: US soft tissue UE LT DATE: 08/09/2024 17:09 INDICATION: Bacteremia. TECHNIQUE: Multiple grayscale and Doppler ultrasound images of the left upper limb were obtained. COMPARISON: None FINDINGS: There is a patent dialysis graft in the left upper extremity. There is no abnormal mass or abscess. IMPRESSION: 1. No abnormal mass or abscess. Reviewed, dictated and finalized at location A.
--- NOTE | ~2024-08-07 | XR_ITS ---
EXAMINATION: XR chest 1V portable DATE: 08/12/2024 07:45 INDICATION: Bacteremia, shortness of breath. COPD. TECHNIQUE: frontal view of the chest was obtained. COMPARISON: Chest radiograph dated 08/07/2024 FINDINGS: Unchanged small left pleural effusion with associated left basilar atelectasis. Slight interval progr ession in asymmetric increased interstitial pattern in the right lower lung zone which could represen t asymmetric mild pulmonary edema or pneumonia. A few peripheral linear opacities at the left mid mikey g zone and right costophrenic angle which could be due to atelectasis or mild pulmonary edema. Calcif ied nodule at the azygos esophageal recess and calcified mediastinal lymph nodes consistent with old granulomatous disease. Heart size is normal. IMPRESSION: 1. Mild lower lung predominant opacities which could represent pneumonia, pulmonary edema, atelectasi s or some combination thereof. 2. Small left pleural effusion. Reviewed, dictated and finalized at location A. IMPRESSION: 1. Mild lower lung predominant opacities which could represent pneumonia, pulmo nary edema, atelectasis or some combination thereof. 2. Small left pleural effusion.
--- NOTE | ~2024-08-07 | XR_ITS ---
EXAMINATION: XR chest 1V portable DATE: 08/07/2024 02:25 INDICATION: Shortness of breath. Atrial fibrillation. TECHNIQUE: A single frontal view of the chest was obtained. COMPARISON: Chest single view 09/02/2022, chest CT 08/29/2022 FINDINGS: There is a small left pleural effusion. There are airspace opacities at left lung base with volume loss. No pneumothorax. Cardiomegaly is noted. IMPRESSION: 1. Small left pleural effusion. 2. Airspace opacities at left lung base, likely atelectasis. 3. Cardiomegaly. Reviewed, dictated and finalized at location A.
--- NOTE | 2024-08-07 02:10 | ECG_ITS ---
Test Date: 2024-08-07 02:15:23 Measurements Intervals [place] Rate: 87 P: 0 MA: 0 QRS: 84 QRSD: 134 T: -76 QT: 327 QTc: 395 Interpretive Statements ATRIAL FIBRILLATION RIGHT BUNDLE BRANCH BLOCK [120+ ms QRS DURATION, UPRIGHT V1, 40+ ms S IN I/aVL/V4/V5/V6] ST DEVIATION AND MODERATE T-WAVE ABNORMALITY, CONSIDER INFERIOR ISCHEMIA [-0.1+ mV T WAVE IN II/aVF] No previous ECG available for comparison Electronically Signed On 08-07-2024 10:56:01 CDT by Lucy Liang M.D.
[2024-08-07 02:44] LABS: Basophils Percent Auto 0.3 % (0.2-1.2); Eosinophils Percent Auto 0.4 % (0-4.4); Hematocrit 28.9 % (37.0-47.0); Hemoglobin 10.1 g/dL (12.0-15.0); Immature Granulocyte Absolute 0.05 K/mm3 (0.00-0.031); Immature Granulocyte Percent A 0.5 % (0-0.5); Lymphocytes Absolute Auto 0.53 K/mm3 (0.9-3.2); Lymphocytes Percent Auto 5.3 % (18.3-44.2); Mean Corpuscular HGB Conc 34.9 g/dl (32-36); Mean Corpuscular Hemoglobin 33.3 pg (26-34); Mean Corpuscular Volume 95.4 fl (80-100); Mean Platelet Volume 9.4 fl (7.4-10.4); Monocytes Absolute Auto 0.6 K/mm3 (0.1-0.6); Monocytes Percent Auto 6.5 % (2.6-8.5); Neutrophils Absolute Auto 8.6 K/mm3 (1.3-6.7); Platelet Count Result 182 k/mm3 (150-375); Red Blood Count 3.03 M/mm3 (4.2-5.4); White Blood Count 9.9 K/mm3 (4.5-10.0)
[2024-08-07 02:59] LABS: INR 1.4; Prothrombin Time 17.2 Seconds (11.1-14.7)
[2024-08-07 03:00] LABS: Partial Thromboplastin Time 38.5 Seconds (22.3-36.8)
[2024-08-07 03:06] LABS: Troponin I 0.015 ng/mL (0.000-0.034)
[2024-08-07 03:20] LABS: Alanine Aminotransferase 18 U/L (6-35); Albumin Level 3.6 g/dL (3.5-5.1); Alkaline Phosphatase 103 U/L (38-126); Anion Gap 11 mmol/L (4-12); Aspartate Amino Transferase 29 U/L (14-36); Bilirubin,Total 0.9 mg/dL (0.2-1.3); Blood Urea Nitrogen 27 mg/dL (7-17); Calcium 8.3 mg/dL (8.4-10.2); Carbon Dioxide 27 mmol/L (22-30); Chloride 89 mmol/L (98-107); Estimated Glomerular Filt Rate 19; Glucose 129 mg/dL (65-110); Lipase 25 U/L (23-300); Potassium 2.8 mmol/L (3.4-5.0); Sodium 127 mmol/L (137-145)
--- NOTE | 2024-08-07 03:48 | ED.SOB ---
HPI - SOB/Dyspnea General Chief Complaint: Shortness of Breath/Dyspnea Stated Complaint: SOB/Weakness x 2D Time Seen by Provider: 08/07/24 02:37 History of Present Illness HPI Narrative: 78-year-old female with history of end-stage renal disease on dialysis Thursday, Thursday, Thursday. She has a history of paroxysmal AFib. Hypertension, CHF. She presents to the emergency room today with a chief complaint of profound weakness. She states that she slid out of bed and fell onto her tailbone. Did not hit her head or lose consciousness. She was not able to get up secondary to the profound weakness she is experiencing and called EMS. Patient shows some plain of some shortness of breath but not hypoxic. Underwent dialysis on Thursday without any issue. She has otherwise been in her normal state of health. Denies any chest pain shortness a breath presently no nausea, vomiting, headache, vision change, abdominal pain, back pain, tailbone pain, fever, chills, Unilateral weakness or sensory changes. Related Data Home Medications Medication Instructions Recorded Confirmed apixaban 2.5 mg tablet (Eliquis) 2.5 mg PO BID 08/30/22 08/07/24 atorvastatin 40 mg tablet 40 mg PO HS 08/30/22 08/07/24 cholecalciferol (vitamin D3) 1,250 1,250 mcg PO WEEKLY 08/30/22 08/07/24 mcg (50,000 unit) capsule levothyroxine 75 mcg tablet 75 mcg PO QAM 08/30/22 08/07/24 metoprolol tartrate 50 mg tablet 50 mg PO Q12HR 08/07/24 08/07/24 (Lopressor) Allergies Allergy/AdvReac Type Severity Reaction Status Date / Time No Known Allergies Allergy Verified 08/07/24 02:10 Review of Systems Review of Systems: As reviewed above in HPI [facility] Past Medical History Medical History Atrial fibrillation status post cardioversion Borderline diabetes End stage renal disease Erythropoietin deficiency anemia Hyperlipidemia Hypertension Hypothyroid Renal osteodystrophy Surgical History Surgical History AV fistula History of hysterectomy partial History of tubal ligation at 32 yo Family History Family History Sibling Adopted (not a blood relative) Father Accident at workplace Mother Breast cancer Social History Social History Social History: Patient selects her son, Maxx Ramirez, as surrogate decision maker. Smoking packs per day: 2 Smoking cigarettes per day: 40.0 Years smoked: 40 Smoking pack-years: 80.00 Smoking status: Former smoker Second hand tobacco smoke exposure: No Alcohol intake: current Drinks per week: 7 Alcohol use details: daily wine or beer Substance use: never Substance use type: does not use Do You Feel Safe in your Home?: Yes Lack of Transportation: No Lack of Food: Never True Current Housing: I Have Housing Concerned About Future Housing: No Difficulty Paying Gas/Electric Bills: No Difficulty Paying for Meds: No Currently Unemployed: No Education: High School Diploma/GED Difficulty w/ Childcare or Family Care: No Living arrangements: with family Additional living arrangements comments: sister Occupation/Education: unemployed Gender identity (if verbalized by the patient): Female Spiritual care concerns: No Exam Narrative: GENERAL: [Well-appearing, well-nourished, and in no acute distress.] HEAD: [Normocephalic, atraumatic.] EYES: [PERRLA and EOMI.] ENT: Nares clear, no rhinorrhea or epistaxis. Mucous membranes moist. NECK: Supple. CHEST: [Clear to auscultation. No respiratory distress.] HEART: [Regular rate and rhythm]. No murmur heard. [Normal peripheral pulses.] left upper extremity AV graft with palpable thrill ABDOMEN: [Soft, nondistended], [nontender], [No rigidity or guarding] EXTREMITIES: Normal rang
[2024-08-07] MEDS: POTASSIUM CHLORIDE 20 MEQ PACKET (FOR LIQUID) PO (04:32)
[2024-08-07] MEDS: POTASSIUM CHLORIDE INJ 40 MEQ in SODIUM CHLORIDE 0.9% IV 500 ML 130 MEQ IVPB (04:33)
[2024-08-07] MEDS: SODIUM CHLORIDE 0.9% IV 500 ML 999 ML IV CONT (04:33)
--- NOTE | 2024-08-07 05:04 | ECG_ITS ---
Test Date: 2024-08-07 05:11:15 Measurements Intervals [place] Rate: 81 P: 0 [place]: 0 QRS: 78 QRSD: 130 T: 48 QT: 430 QTc: 500 Interpretive Statements ATRIAL FIBRILLATION RIGHT BUNDLE BRANCH BLOCKNONSPECIFIC ST & T-WAVE ABNORMALITY ABNORMAL RHYTHM ECG Compared to ECG 08/07/2024 02:15:23 Possible ischemia no longer present Electronically Signed On 08-07-2024 10:59:30 CDT by Lucy Liang M.D.
[2024-08-07 05:43] LABS: Troponin I < 0.012 ng/mL (0.000-0.034)
[2024-08-07 05:45] LABS: Add Urine Microscopic? YES; Appearance Urine Clear (Clear); Bacteria Urine 1+ /hpf; Bilirubin Urine Negative (Negative); Blood Urine Negative (Negative); Color Urine Yellow (Yellow); Glucose Urine UA Negative (Negative); Ketones Urine Negative (Negative); Leukocyte Esterase Ur Negative LEU/UL (Negative); Need Manual Microscopic Reviewed; Nitrate Urine Negative (Negative); Non Pathogenic Casts 0-2; Protein Urine Trace mg/dL (Negative); RBC Urine 0-2 /hpf (0-2); Specific Grav Ur 1.007 (1.001-1.035); Squamous Epithelial Cell Urine None Seen /hpf (Few); WBC Urine 0-5 /hpf (0-3)
--- NOTE | 2024-08-07 06:32 | ADMGEN ---
This patient, Francisca Meyers, was admitted to 2 Medical Room 259-. Patient/family oriented to hospital policies and general routines including ID bracelet, bed and alarms, visiting hours, pain management, procedures, bathroom and other care routines, personal items, smoking policy, room service/diet, and visiting hours. Information on how to activate the Rapid Response Team has been discussed. Patient/Family are encouraged to report perceived risks to care and to ask questions if they do not understand what they are told or what they should do.
--- NOTE | 2024-08-07 08:07 | PM.IMHP ---
H&P: HPI History of Present Illness Date/Time: 08/07/24 08:07 Chief Complaint: sob, weakness x 2 d Narrative: 78-year-old female with history of end-stage renal disease on dialysis Thursday, Thursday, Thursday. She has a history of paroxysmal AFib. Hypertension, CHF. She presents to the emergency room today with a chief complaint of weakness. She lives at home and typically independent. She states that she slid out of bed the other day and fell onto her tailbone. Did not hit her head or lose consciousness. Patient shows some plain of some shortness of breath but not hypoxic. Underwent dialysis on Thursday without any issue. She has otherwise been in her normal state of health. Denies any chest pain shortness a breath presently no nausea, vomiting, headache, vision change, abdominal pain, back pain, tailbone pain, fever, chills, Unilateral weakness or sensory changes. she had afib and had cardioversion last year- when she was told she converted to NSR. She was given lasix 80 mg bid to help her kidneys she doesnot make much urine bu still make some. In ED: HG- 10.1- baseline. No leukocytosis. Hypokalemia 2.8, low sodium and chloride, Mildly elevated BUN and creatinine above her normal baseline end-stage renal disease. She received 500 cc bolus for fluid hydration and 40 IV potassium and 20 mg of p.o. potassium to bring her in line to normal range. EKG - NO dysrhythmias other than her chronic atrial fibrillation, no ST segment elevations or depressions. Right bundle branch block which is chronic. pt is seen and examined. She is alert, oriented, pleasant. denies any acute issues this am. Review of Systems Review of Systems: All systems reviewed & are unremarkable except as noted in HPI and below (h/p) [facility] Past Medical History Medical History Atrial fibrillation status post cardioversion Borderline diabetes End stage renal disease Erythropoietin deficiency anemia Hyperlipidemia Hypertension Hypothyroid Renal osteodystrophy Surgical History Surgical History AV fistula History of hysterectomy partial History of tubal ligation at 32 yo Family History Family History Sibling Adopted (not a blood relative) Father Accident at workplace Mother Breast cancer Social History Social History Social History: Patient selects her son, Maxx Ramirez, as surrogate decision maker. Smoking packs per day: 2 Smoking cigarettes per day: 40.0 Years smoked: 40 Smoking pack-years: 80.00 Smoking status: Former smoker Second hand tobacco smoke exposure: No Alcohol intake: current Drinks per week: 7 Alcohol use details: daily wine or beer Substance use: never Substance use type: does not use Do You Feel Safe in your Home?: Yes Lack of Transportation: No Lack of Food: Never True Current Housing: I Have Housing Concerned About Future Housing: No Difficulty Paying Gas/Electric Bills: No Difficulty Paying for Meds: No Currently Unemployed: No Education: High School Diploma/GED Difficulty w/ Childcare or Family Care: No Living arrangements: with family Additional living arrangements comments: sister Occupation/Education: unemployed Gender identity (if verbalized by the patient): Female Spiritual care concerns: No Meds Home Medications and Allergies Home Medications Medication Instructions Recorded Confirmed Type apixaban 2.5 mg tablet (Eliquis) 2.5 mg PO BID 08/30/22 08/07/24 History atorvastatin 40 mg tablet 40 mg PO HS 08/30/22 08/07/24 History cholecalciferol (vitamin D3) 1,250 1,250 mcg PO WEEKLY 08/30/22 08/07/24 History mcg (50,000 unit) capsule levothyroxine 75 mcg tablet 75 mcg PO QAM 08/30/22 08/07/24 History furosemide 80 mg tablet 80 mg PO B
[2024-08-07 09:07] LABS: Troponin I 0.022 ng/mL (0.000-0.034)
[2024-08-07] MEDS: METOPROLOL TARTRATE 50 MG TAB PO (09:08)
[2024-08-07] MEDS: LEVOTHYROXINE SODIUM 75 MCG TABLET PO (09:08)
[2024-08-07] MEDS: APIXABAN 2.5 MG TABLET PO ×2 (09:08→20:40)
--- NOTE | 2024-08-07 09:18 | PM.CNNEP ---
Assessment and Plan Assessment and plan (1) End stage renal disease: Code(s): N18.6 - End stage renal disease Status: Chronic Assessment and Plan: The patient has end-stage renal disease. This is likely due to hypertension. She is cared for by Dr. Camp at [facility] in [place]. She goes to dialysis 3 times a week faithfully. She is due for dialysis tomorrow. I will write the orders. (2) Fever: Code(s): R50.9 - Fever, unspecified Status: Acute Assessment and Plan: The patient had a fever on Thursday. It is unclear whether she received vancomycin. I can check a level. We do not have documentation of that fever and she does not have a white count or a fever now. The graft looks good. We can get an ultrasound just to make sure there is no fluid collection. So I think I will just get a vancomycin level and get some blood cultures now. Tomorrow they can reach out to [facility] to see what happened on Thursday. (3) A-fib: Qualifiers: Atrial fibrillation type: paroxysmal Qualified Code(s): I48.0 - Paroxysmal atrial fibrillation Code(s): I48.91 - Unspecified atrial fibrillation Status: Chronic Assessment and Plan: Heart rate is well controlled (4) Hypertension: Qualifiers: Hypertension type: primary hypertension Qualified Code(s): I10 - Essential (primary) hypertension Code(s): I10 - Essential (primary) hypertension Status: Chronic Assessment and Plan: Blood pressure is doing well. She is on metoprolol only. (5) Renal osteodystrophy: Code(s): N25.0 - Renal osteodystrophy Status: Chronic Assessment and Plan: The patient is not on any binders. Will check a phosphorus level in the morning. (6) Erythropoietin deficiency anemia: Code(s): D63.1 - Anemia in chronic kidney disease Status: Chronic Assessment and Plan: Hemoglobin is good at 10.2. Will give Epogen tomorrow in dialysis (7) Hyperlipidemia: Qualifiers: Hyperlipidemia type: mixed hyperlipidemia Qualified Code(s): E78.2 - Mixed hyperlipidemia Code(s): E78.5 - Hyperlipidemia, unspecified Status: Chronic Assessment and Plan: The patient is on atorvastatin (8) Acute hypokalemia: Code(s): E87.6 - Hypokalemia Status: Acute Assessment and Plan: Unclear reason for the low potassium although she was not eating very well. Notably she is on potassium pills as an outpatient so this is probably a recurring theme. (9) Weakness: Code(s): R53.1 - Weakness Status: Acute Assessment and Plan: Possibly due to the low potassium? infection? Evaluation by hospitalists. History of Present Illness Reason for Consult Consult date: 08/07/24 Chief Complaint Chief complaint: Hypokalemia, Generalized weakness, ESRD History of Present Illness Narrative: Francisca is a very pleasant 77-year-old lady who has end-stage renal disease on dialysis on Wednesdays and Fridays per Dr. Camp in [place]. She also has hypertension, atrial fibrillation, renal osteodystrophy, anemia of chronic kidney disease, GERD, hyperlipidemia. The patient has been on dialysis for about 3 years. She is unsure what caused it but she did have hypertension. Since she has been on dialysis her blood pressure has been adequately controlled just with the dialysis. She has not needed medications for this lately. She had a dialysis graft placed about 3 months ago were so. Is been use for about 2 months and there have been no problems with it. She denies any heart failure, heart attack or stroke. The patient was well until Thursday when she had some problems on dialysis. She had a fever of 101. She isn't sure if she received vancomycin or if she got cultures done. They terminated dialysis early because she did not feel well. She was discharged and went home. Over the weekend she had poor ap
[2024-08-07 12:27] LABS: Vancomycin Random < 5.0 ug/mL (10-20)
[2024-08-07 16:26] LABS: Anion Gap 7 mmol/L (4-12); Blood Urea Nitrogen 29 mg/dL (7-17); Calcium 8.3 mg/dL (8.4-10.2); Carbon Dioxide 30 mmol/L (22-30); Chloride 93 mmol/L (98-107); Estimated CRCL calculation 20 ml/min; Estimated Glomerular Filt Rate 19; Glucose 114 mg/dL (65-110); Potassium 3.9 mmol/L (3.4-5.0); Sodium 130 mmol/L (137-145)
[2024-08-07] MEDS: FUROSEMIDE 80 MG TABLET PO (18:34)
[2024-08-07] MEDS: ACETAMINOPHEN 325 MG TABLET 650 MG PO (18:34)
--- NOTE | 2024-08-07 20:23 | PC.NURSE ---
2100 dose of Metoprolol not given @ hs per Soni's order after reviewing pt's low BP
[2024-08-07] MEDS: ATORVASTATIN 40 MG TABLET PO (20:40)
[2024-08-08] VITALS (29 sets, daily range): BP systolic 85–151; BP diastolic 5–106; PULSE 51–90; RESP 14–24; TEMP 36.2–37; O2SAT 91–96
[2024-08-08 05:12] LABS: Basophils Absolute Auto 0.1 K/mm3 (0.0-0.1); Basophils Percent Auto 0.6 % (0.2-1.2); Eosinophils Absolute Auto 0.2 K/mm3 (0-0.3); Eosinophils Percent Auto 2.4 % (0-4.4); Hematocrit 31.1 % (37.0-47.0); Hemoglobin 10.4 g/dL (12.0-15.0); Immature Granulocyte Absolute 0.06 K/mm3 (0.00-0.031); Immature Granulocyte Percent A 0.8 % (0-0.5); Lymphocytes Absolute Auto 1.14 K/mm3 (0.9-3.2); Lymphocytes Percent Auto 14.3 % (18.3-44.2); Mean Corpuscular HGB Conc 33.4 g/dl (32-36); Mean Corpuscular Volume 98.7 fl (80-100); Mean Platelet Volume 9.4 fl (7.4-10.4); Monocytes Absolute Auto 0.8 K/mm3 (0.1-0.6); Monocytes Percent Auto 9.9 % (2.6-8.5); Neutrophils Absolute Auto 5.8 K/mm3 (1.3-6.7); Platelet Count Result 219 k/mm3 (150-375); Red Blood Count 3.15 M/mm3 (4.2-5.4); Red Cell Distribution Width 14.5 % (11.5-14.5)
[2024-08-08 05:23] LABS: Albumin Level 3.7 g/dL (3.5-5.1); Anion Gap 10 mmol/L (4-12); Blood Urea Nitrogen 30 mg/dL (7-17); Calcium 8.8 mg/dL (8.4-10.2); Carbon Dioxide 30 mmol/L (22-30); Chloride 94 mmol/L (98-107); Estimated CRCL calculation 20 ml/min; Estimated Glomerular Filt Rate 19; Glucose 101 mg/dL (65-110); Magnesium 2.1 mg/dL (1.6-2.3); Phosphorus 4.7 mg/dL (2.5-4.5); Potassium 3.3 mmol/L (3.4-5.0); Sodium 134 mmol/L (137-145)
[2024-08-08] MEDS: LEVOTHYROXINE SODIUM 75 MCG TABLET PO (05:42)
--- NOTE | 2024-08-08 05:47 | PM.EVENT ---
Event Note Event Note Event Note: Nursing staff called the patient has positive blood cultures with Gram-positive cocci in pairs. Given that the patient is a dialysis patient and has positive blood cultures in aerobic and anaerobic bottles as well as a borderline temperature of 99.5? and given reports symptoms of weakness will start patient on empiric antibiotic therapy with Rocephin and will repeat blood cultures.
[2024-08-08 06:18] LABS: Hepatitis B Surface Antigen Negative (Negative)
[2024-08-08 06:36] LABS: Hepatitis B Surface Anti Res Positive
--- NOTE | 2024-08-08 08:03 | PM.IMPN ---
Progress Note: A&P Assessment and Plan (1) Acute hypokalemia: Code(s): E87.6 - Hypokalemia Status: Acute Assessment and Plan: She also has a low sodium and chloride indicative of dehydration. Mildly elevated BUN and creatinine above her normal baseline end-stage renal disease. She was given a judicious 500 cc bolus for fluid hydration and 40 IV potassium and 20 mg of p.o. potassium to bring her in line to normal range. EKG does not show any dysrhythmias other than her chronic atrial fibrillation, no ST segment elevations or depressions. Right bundle branch block which is chronic. - discussed with nephrology- ok to restart Lasix (2) Hyperlipidemia: Qualifiers: Hyperlipidemia type: mixed hyperlipidemia Qualified Code(s): E78.2 - Mixed hyperlipidemia Code(s): E78.5 - Hyperlipidemia, unspecified Status: Chronic Assessment and Plan: -chronic - continue home statin (3) Hypothyroid: Qualifiers: Hypothyroidism type: acquired Qualified Code(s): E03.9 - Hypothyroidism, unspecified Code(s): E03.9 - Hypothyroidism, unspecified Status: Chronic Assessment and Plan: chronic -continue home med (4) Hypertension: Qualifiers: Hypertension type: primary hypertension Qualified Code(s): I10 - Essential (primary) hypertension Code(s): I10 - Essential (primary) hypertension Status: Chronic Assessment and Plan: metoprolol (5) A-fib: Qualifiers: Atrial fibrillation type: paroxysmal Qualified Code(s): I48.0 - Paroxysmal atrial fibrillation Code(s): I48.91 - Unspecified atrial fibrillation Status: Chronic Assessment and Plan: chronic problem ruben metoprolol (6) Fall: Code(s): W19.XXXA - Unspecified fall, initial encounter Status: Acute Assessment and Plan: chief complaint of profound weakness. She states that she slid out of bed and fell onto her tailbone. Did not hit her head or lose consciousness. She was not able to get up secondary to the profound weakness she is experiencing and called EMS -pt/ot - on ruben for afib- discussed fall /bleeding risk, risk/benefits (7) End stage renal disease: Code(s): N18.6 - End stage renal disease Status: Chronic Assessment and Plan: -following with Dr. Camp at [facility] in [place]. - She goes to dialysis 3 times a week faithfully. - due for dialysis tomorrow- nephrology consulted-appreciate recommendations (8) Bacteremia: Code(s): R78.81 - Bacteremia Status: Acute Assessment and Plan: - positive blood cultures with Gram-positive cocci in pairs -dialysis patient - positive blood cultures in aerobic and anaerobic bottles- borderline temperature of 99.5? -symptomatic (symptoms of weakness) - started on empiric antibiotic therapy with Rocephin overnight and will repeat blood cultures. 10/08- will stop rocephin and start vanc- pharmacy to dose Plan DVT prophylaxis: on elquis for afib Time Spent With Patient Time with patient: Greater than 35 minutes Subjective Date/time seen: 08/08/24 08:03 Interval history: pt is seen and examined today. she is still weak but doing ok overall Review of Systems Review of Systems: All systems reviewed & are unremarkable except as noted in HPI and below (h/p) Exam Const: General: comfortable Resp: Effort & Inspection: normal respiratory effort Auscultation: clear to auscultation bilaterally Cardio: Rhythm: abnormal rhythm Other: irregular Skin: General skin exam: normal color Neuro: Speech: normal speech Sensory Exam: normal sensation Extrem: General: normal to inspection Other: dialysis graft to lt upper arm- no redness, no swelling Psych: Affect: normal affect Objective Data Vital Signs Vital Signs: Vital Signs - 24 hr 08/07/24 09:08 08/07/24 14:00 08/07/24 12:00 Temperature 98.2 F Pulse Rate 86
[2024-08-08] MEDS: SODIUM CHLORIDE 0.9% IV 1,000 ML 999 ML IV CONT (08:06)
--- NOTE | 2024-08-08 09:32 | P.PNNP_ITS ---
Progress Note: A&P Assessment and Plan (1) End stage renal disease: Code(s): N18.6 - End stage renal disease Status: Chronic Assessment and Plan: * HD today * continue outpatient schedule of Thu/Thu/Thursday * follow electrolytes, volume status, and clearance * outpatient dialysis center = [facility] * primary fellmongery worker = Dr. Camp (2) Bacteremia: Code(s): R78.81 - Bacteremia Status: Acute Assessment and Plan: * presumed etiology of fevers * blood culture with Enterococcus * source unclear * has AVG for dialysis access * this does not clinically appear infected (no erythema/pain..etc) * check ultrasound of AVG (if possible) * on antibiotics * follow repeat cultures (3) Hypertension: Qualifiers: Hypertension type: primary hypertension Qualified Code(s): I10 - Essential (primary) hypertension Code(s): I10 - Essential (primary) hypertension Status: Chronic Assessment and Plan: * well controlled * on metoprolol (but suspect this is more for her Afib) * on midodrine on dialysis days (4) Anemia: Code(s): D64.9 - Anemia, unspecified Status: Chronic Assessment and Plan: * due to her ESRD * SHANITA with dialysis * follow trend of H/H (5) Hypokalemia: Code(s): E87.6 - Hypokalemia Status: Chronic Assessment and Plan: * suspect a chronic issue * on potassium supplementation as an outpatient * replete PRN * adjusting dialysis bath to compensate (6) A-fib: Qualifiers: Atrial fibrillation type: paroxysmal Qualified Code(s): I48.0 - Paroxysmal atrial fibrillation Code(s): I48.91 - Unspecified atrial fibrillation Status: Chronic Assessment and Plan: * rate control strategy * on anticoagulation (7) Weakness: Code(s): R53.1 - Weakness Status: Acute Assessment and Plan: * due to low K+ versus bacteremia/infection? * continue supportive care Will continue to follow. Subjective Date/time seen: 08/08/24 09:32 Interval history: Follow-up for end stage renal disease on hemodialysis. Chart reviewed -- assuming care from Dr. Yates; tolerating dialysis treatment at the time of my visit (seen on HD at 9:20AM); no apparent distress voiced currently; noted blood culture results with subsequent initiation of IV antibiotics; no other issues/events overnight or earlier this morning. Exam Narrative: General: elderly but WD/WN female in NAD Heart: normal S1 and S2; no rub Lungs: clear anteriorly Abdomen: soft, nontender, nondistended, positive bowel sounds Extremities: no cyanosis or clubbing; no edema Skin: warm and dry Objective Data Vital Signs Vital Signs: Vital Signs Temp Pulse Resp BP Pulse Ox O2 Del Method FiO2 08/08/24 09:30 70 151/96 H 08/08/24 09:15 70 133/86 08/08/24 09:00 66 138/72 08/08/24 08:30 62 135/106 H 08/08/24 08:45 63 128/66 08/08/24 08:18 60 111/57 L 08/08/24 08:06 97.3 F L 58 L 18 109/57 L 08/08/24 06:00 97.7 F 60 18 110/48 L 96 08/08/24 04:00 51 L 08/08/24 00:00 90 08/07/24 20:00 60 18 94 Room Air 21 08/07/24 21:07 99.5 F 60 18 95/40 L 94
--- NOTE | 2024-08-08 09:32 | PM.PNNEP ---
Progress Note: A&P Assessment and Plan (1) End stage renal disease: Code(s): N18.6 - End stage renal disease Status: Chronic Assessment and Plan: HD today continue outpatient schedule of Thu/Thu/Thursday follow electrolytes, volume status, and clearance outpatient dialysis center = [facility] primary manager books = Dr. Camp (2) Bacteremia: Code(s): R78.81 - Bacteremia Status: Acute Assessment and Plan: presumed etiology of fevers blood culture with Enterococcus source unclear has AVG for dialysis access this does not clinically appear infected (no erythema/pain..etc) check ultrasound of AVG (if possible) on antibiotics follow repeat cultures (3) Hypertension: Qualifiers: Hypertension type: primary hypertension Qualified Code(s): I10 - Essential (primary) hypertension Code(s): I10 - Essential (primary) hypertension Status: Chronic Assessment and Plan: well controlled on metoprolol (but suspect this is more for her Afib) on midodrine on dialysis days (4) Anemia: Code(s): D64.9 - Anemia, unspecified Status: Chronic Assessment and Plan: due to her ESRD SHANITA with dialysis follow trend of H/H (5) Hypokalemia: Code(s): E87.6 - Hypokalemia Status: Chronic Assessment and Plan: suspect a chronic issue on potassium supplementation as an outpatient replete PRN adjusting dialysis bath to compensate (6) A-fib: Qualifiers: Atrial fibrillation type: paroxysmal Qualified Code(s): I48.0 - Paroxysmal atrial fibrillation Code(s): I48.91 - Unspecified atrial fibrillation Status: Chronic Assessment and Plan: rate control strategy on anticoagulation (7) Weakness: Code(s): R53.1 - Weakness Status: Acute Assessment and Plan: due to low K+ versus bacteremia/infection? continue supportive care Will continue to follow. Subjective Date/time seen: 08/08/24 09:32 Interval history: Follow-up for end stage renal disease on hemodialysis. Chart reviewed -- assuming care from Dr. Yates; tolerating dialysis treatment at the time of my visit (seen on HD at 9:20AM); no apparent distress voiced currently; noted blood culture results with subsequent initiation of IV antibiotics; no other issues/events overnight or earlier this morning. Exam Narrative: General: elderly but WD/WN female in NAD Heart: normal S1 and S2; no rub Lungs: clear anteriorly Abdomen: soft, nontender, nondistended, positive bowel sounds Extremities: no cyanosis or clubbing; no edema Skin: warm and dry Objective Data Vital Signs Vital Signs: Vital Signs Temp Pulse Resp BP Pulse Ox O2 Del Method FiO2 08/08/24 09:30 70 151/96 H 08/08/24 09:15 70 133/86 08/08/24 09:00 66 138/72 08/08/24 08:30 62 135/106 H 08/08/24 08:45 63 128/66 08/08/24 08:18 60 111/57 L 08/08/24 08:06 97.3 F L 58 L 18 109/57 L 08/08/24 06:00 97.7 F 60 18 110/48 L 96 08/08/24 04:00 51 L 08/08/24 00:00 90 08/07/24 20:00 60 18 94 Room Air 21 08/07/24 21:07 99.5 F 60 18 95/40 L 94 08/07/24 20:00 61 08/07/24 16:00 61 08/07/24 14:00 98.2 F 56 L 16 103/45 L 97 Intake/Output Intake/Output: Intake & Output 08/05/24 08/06/24 08/07/24 08/08/24 23:59 23:59 23:59 23:59 Intake Total 1220 440 Output Total 600 Balance 1220 -160 Meds/Results Medications: Active Medications Generic Name Dose Route Start Last Admin Trade Name Freq PRN Reason Stop Dose Admin Acetaminophen 650 mg 08/07/24 18:02 08/07/24 18:34 Acetaminophen 325 Mg Tablet PO 650 mg Q6H PRN Administration Mild Pain (1-3) or Fever Apixaban 2.5 mg 08/07/24 09:00 08/07/24 20:40 Apixaban 2.5 Mg Tablet PO 2.5 mg Q12HR RIMMA Administration Atorvastati
[2024-08-08] MEDS: EPOETIN ALFA-EPBX 10,000 UNITS/ML VIAL 10000 UNITS IV PUSH (10:30)
--- NOTE | 2024-08-08 10:56 | PCPTNOTE ---
Attempted PT evaluation, pt at dialysis. Will follow.
[2024-08-08] MEDS: APIXABAN 2.5 MG TABLET PO ×2 (13:01→21:20)
[2024-08-08] MEDS: ACETAMINOPHEN 325 MG TABLET 650 MG PO ×2 (13:01→21:19)
[2024-08-08] MEDS: VANCOMYCIN 1,750 MG/NS 500 ML BAG 250 MG IVPB (15:43)
[2024-08-08] MEDS: FUROSEMIDE 80 MG TABLET PO (18:19)
[2024-08-08] MEDS: METOPROLOL TARTRATE 50 MG TAB PO (21:19)
[2024-08-08] MEDS: ATORVASTATIN 40 MG TABLET PO (21:20)
[2024-08-09] VITALS (11 sets, daily range): BP systolic 92–110; BP diastolic 44–60; PULSE 46–79; RESP 20–24; TEMP 36.6–36.8; O2SAT 98–100
[2024-08-09] MEDS: LEVOTHYROXINE SODIUM 75 MCG TABLET PO (05:43)
--- NOTE | 2024-08-09 10:44 | P.PNNP_ITS ---
Progress Note: A&P Assessment and Plan (1) End stage renal disease: Code(s): N18.6 - End stage renal disease Status: Chronic Assessment and Plan: * HD tomorrow * continue outpatient schedule of Thu/Thu/Thursday * follow electrolytes, volume status, and clearance * outpatient dialysis center = [facility] * primary photo lab specialist = Dr. Camp (2) Bacteremia: Code(s): R78.81 - Bacteremia Status: Acute Assessment and Plan: * presumed etiology of fevers * blood cultures with Enterococcus * source unclear * has AVG for dialysis access * this does not clinically appear infected (no erythema/pain..etc) * on antibiotics * follow repeat cultures (3) Hypertension: Qualifiers: Hypertension type: primary hypertension Qualified Code(s): I10 - Essential (primary) hypertension Code(s): I10 - Essential (primary) hypertension Status: Chronic Assessment and Plan: * well controlled * on metoprolol (but suspect this is more for her Afib) * on midodrine on dialysis days (4) Anemia: Code(s): D64.9 - Anemia, unspecified Status: Chronic Assessment and Plan: * due to her ESRD * SHANITA with dialysis * follow trend of H/H (5) Hypokalemia: Code(s): E87.6 - Hypokalemia Status: Chronic Assessment and Plan: * suspect a chronic issue * on potassium supplementation as an outpatient * replete PRN * adjusting dialysis bath to compensate (6) A-fib: Qualifiers: Atrial fibrillation type: paroxysmal Qualified Code(s): I48.0 - Paroxysmal atrial fibrillation Code(s): I48.91 - Unspecified atrial fibrillation Status: Chronic Assessment and Plan: * rate control strategy * on anticoagulation (7) Weakness: Code(s): R53.1 - Weakness Status: Acute Assessment and Plan: * due to low K+ versus bacteremia/infection? * continue supportive care Will continue to follow. Subjective Date/time seen: 08/09/24 10:44 Interval history: Follow-up for end stage renal disease on hemodialysis. Tolerated dialysis treatment yesterday without any issues or problems; blood cultures still persistently positive at this time; no apparent distress voiced at the time of my visit; no events overnight or earlier this morning; feels reasonably well. Exam Narrative: General: elderly but WD/WN female in NAD Heart: normal S1 and S2; no rub Lungs: clear anteriorly Abdomen: soft, nontender, nondistended, positive bowel sounds Extremities: no cyanosis or clubbing; no edema Skin: warm and intact Objective Data Vital Signs Vital Signs: Vital Signs Temp Pulse Resp BP Pulse Ox O2 Del Method FiO2 08/09/24 09:01 52 L 92/44 L 08/09/24 08:56 Room Air 08/09/24 06:00 97.8 F 51 L 24 H 103/46 L 98 08/09/24 04:00 46 L 08/09/24 00:00 50 L 08/08/24 20:00 55 L 08/08/24 20:00 64 24 H 96 Room Air 21 08/08/24 20:55 97.9 F 64 24 H 106/40 L 96 08/08/24 17:42 112/56 L 08/08/24 16:00 61 08/08/24 14:00 98.4 F 68 14 90/44 L 91 08/08/24 11:51 76 133/68 08/08/24 11:45 79 105/53 L 08/08/24 12:08 97.5 F L 75 18 107/52 L
--- NOTE | 2024-08-09 10:44 | PM.PNNEP ---
Progress Note: A&P Assessment and Plan (1) End stage renal disease: Code(s): N18.6 - End stage renal disease Status: Chronic Assessment and Plan: HD tomorrow continue outpatient schedule of Thu/Thu/Thursday follow electrolytes, volume status, and clearance outpatient dialysis center = [facility] primary construction specialist = Dr. Camp (2) Bacteremia: Code(s): R78.81 - Bacteremia Status: Acute Assessment and Plan: presumed etiology of fevers blood cultures with Enterococcus source unclear has AVG for dialysis access this does not clinically appear infected (no erythema/pain..etc) on antibiotics follow repeat cultures (3) Hypertension: Qualifiers: Hypertension type: primary hypertension Qualified Code(s): I10 - Essential (primary) hypertension Code(s): I10 - Essential (primary) hypertension Status: Chronic Assessment and Plan: well controlled on metoprolol (but suspect this is more for her Afib) on midodrine on dialysis days (4) Anemia: Code(s): D64.9 - Anemia, unspecified Status: Chronic Assessment and Plan: due to her ESRD SHANITA with dialysis follow trend of H/H (5) Hypokalemia: Code(s): E87.6 - Hypokalemia Status: Chronic Assessment and Plan: suspect a chronic issue on potassium supplementation as an outpatient replete PRN adjusting dialysis bath to compensate (6) A-fib: Qualifiers: Atrial fibrillation type: paroxysmal Qualified Code(s): I48.0 - Paroxysmal atrial fibrillation Code(s): I48.91 - Unspecified atrial fibrillation Status: Chronic Assessment and Plan: rate control strategy on anticoagulation (7) Weakness: Code(s): R53.1 - Weakness Status: Acute Assessment and Plan: due to low K+ versus bacteremia/infection? continue supportive care Will continue to follow. Subjective Date/time seen: 08/09/24 10:44 Interval history: Follow-up for end stage renal disease on hemodialysis. Tolerated dialysis treatment yesterday without any issues or problems; blood cultures still persistently positive at this time; no apparent distress voiced at the time of my visit; no events overnight or earlier this morning; feels reasonably well. Exam Narrative: General: elderly but WD/WN female in NAD Heart: normal S1 and S2; no rub Lungs: clear anteriorly Abdomen: soft, nontender, nondistended, positive bowel sounds Extremities: no cyanosis or clubbing; no edema Skin: warm and intact Objective Data Vital Signs Vital Signs: Vital Signs Temp Pulse Resp BP Pulse Ox O2 Del Method FiO2 08/09/24 09:01 52 L 92/44 L 08/09/24 08:56 Room Air 08/09/24 06:00 97.8 F 51 L 24 H 103/46 L 98 08/09/24 04:00 46 L 08/09/24 00:00 50 L 08/08/24 20:00 55 L 08/08/24 20:00 64 24 H 96 Room Air 21 08/08/24 20:55 97.9 F 64 24 H 106/40 L 96 08/08/24 17:42 112/56 L 08/08/24 16:00 61 08/08/24 14:00 98.4 F 68 14 90/44 L 91 08/08/24 11:51 76 133/68 08/08/24 11:45 79 105/53 L 08/08/24 12:08 97.5 F L 75 18 107/52 L Intake/Output Intake/Output: Intake & Output 08/06/24 08/07/24 08/08/24 08/09/24 23:59 23:59 23:59 23:59 Intake Total 1220 2020 590 Output Total 1100 400 Balance 1220 920 190 Meds/Results Medications: Active Medications Generic Name Dose Route Start Last Admin Trade Name Freq PRN Reason Stop Dose Admin Acetaminophen 650 mg 08/07/24 18:02 08/08/24 21:19 Acetaminophen 325 Mg Tablet PO 650 mg Q6H PRN Administration Mild Pain (1-3) or Fever Apixaban 2.5 mg 08/07/24 09:00 08/08/24 21:20 Apixaban 2.5 Mg Tablet PO 2.5 mg Q12HR RIMMA Administration Atorvastatin Calcium 40 mg 08/07/24 21:00 08/08/24 21:20 Atorvastatin 40 Mg Tablet PO 40 mg HS RIMMA Admi
--- NOTE | 2024-08-09 10:58 | PM.IMPN ---
Progress Note: A&P Assessment and Plan (1) Bacteremia: Code(s): R78.81 - Bacteremia Status: Acute Assessment and Plan: 08/09/24: blood cultures final results showing Enterococcus faecalis Rocephin and vancomycin discontinued and patient started on ampicillin 2nd set of blood culture showing Gram-positive cocci in chains will obtain another blood culture in the morning unknown source of infection at this time ultrasound of AV graft site (2) Fall: Code(s): W19.XXXA - Unspecified fall, initial encounter Status: Acute Assessment and Plan: 08/09/24: continue PT and OT (3) Acute hypokalemia: Code(s): E87.6 - Hypokalemia Status: Acute Assessment and Plan: 08/09/24: potassium 3.3 this morning (4) Hyperlipidemia: Qualifiers: Hyperlipidemia type: mixed hyperlipidemia Qualified Code(s): E78.2 - Mixed hyperlipidemia Code(s): E78.5 - Hyperlipidemia, unspecified Status: Chronic Assessment and Plan: 08/09/24: continue atorvastatin (5) Hypothyroid: Qualifiers: Hypothyroidism type: acquired Qualified Code(s): E03.9 - Hypothyroidism, unspecified Code(s): E03.9 - Hypothyroidism, unspecified Status: Chronic Assessment and Plan: 08/09/24: continue Synthroid (6) A-fib: Qualifiers: Atrial fibrillation type: paroxysmal Qualified Code(s): I48.0 - Paroxysmal atrial fibrillation Code(s): I48.91 - Unspecified atrial fibrillation Status: Chronic Assessment and Plan: 08/09/24: continue Eliquis and metoprolol (7) End stage renal disease: Code(s): N18.6 - End stage renal disease Status: Chronic Assessment and Plan: 08/09/24: following with Dr. Camp at [facility] in [place]. Thursday dialysis nephrology following Time Spent With Patient Time with patient: 25 - 35 minutes Subjective Date/time seen: 08/09/24 10:58 Interval history: Interval history: this is a 78-year-old end-stage renal disease on dialysis Thursday who presented to the hospital on 08/07/2024 with shortness of breath and weakness for 2 days. Workup in the hospital included a chest x-ray which showed small left pleural effusion, airspace opacities at the left lung base, cardiomegaly. Initial labs showed a white blood cell count of 9.9, hemoglobin 10.1, INR 1.4, potassium 2.8, sodium 127, chloride 89, creatinine 2.50, EGFR 19, troponins flat x3. UA was obtained and showed 1+ urine bacteria otherwise negative. Blood cultures were obtained on the which are showing Enterococcus faecalis patient was on Rocephin and vancomycin and then switched over to ampicillin. New set of blood cultures were obtained today which are showing Gram-positive cocci in chains on preliminary read. Nephrology was consulted for dialysis needs. Culture results and antibiotics were discussed with Infectious Disease Pharmacist. Subjective: Patient denies any fever, chills, nausea, vomiting, diarrhea, abdominal pain, chest pain, shortness a breath. labs , cultures, and imaging reviewed. Review of Systems Review of Systems: All systems reviewed & are unremarkable except as noted in HPI and below Constitutional: Constitutional: Reports as per HPI and Reports no additional constitutional complaints Eyes: Eyes: Reports as per HPI and Reports no additional eye complaints ENT: Reports system reviewed and no additional complaints, except as documented and Reports as per HPI Cardiovascular: Cardiovascular: Reports as per HPI and Reports no additional cardiovascular complaints Respiratory: Respiratory: Reports as per HPI and Reports no additional respiratory complaints Gastrointestinal: Gastrointestinal: Reports as per HPI and Reports no additional gastrointestinal complaints Genitourinary: Genitourinary: Reports no additional female genitourinary complaints a
[2024-08-09] MEDS: FUROSEMIDE 80 MG TABLET PO ×2 (11:46→17:54)
[2024-08-09] MEDS: APIXABAN 2.5 MG TABLET PO ×2 (11:46→20:51)
[2024-08-09] MEDS: AMPICILLIN 2 GM/NS 100 ML 2 GM/100 ML BAG IVPB ×2 (12:34→20:51)
[2024-08-09] MEDS: MIDODRINE HCL 10 MG TABLET PO (17:54)
[2024-08-09] MEDS: ATORVASTATIN 40 MG TABLET PO (20:51)
[2024-08-10] VITALS (22 sets, daily range): BP systolic 113–142; BP diastolic 41–63; PULSE 44–58; RESP 18–20; TEMP 36.2–37.6; O2SAT 96–97
[2024-08-10 05:17] LABS: Basophils Absolute Auto 0.1 K/mm3 (0.0-0.1); Basophils Percent Auto 0.8 % (0.2-1.2); Eosinophils Absolute Auto 0.2 K/mm3 (0-0.3); Eosinophils Percent Auto 2.3 % (0-4.4); Hematocrit 27.9 % (37.0-47.0); Hemoglobin 9.4 g/dL (12.0-15.0); Immature Granulocyte Absolute 0.37 K/mm3 (0.00-0.031); Immature Granulocyte Percent A 4.7 % (0-0.5); Lymphocytes Absolute Auto 1.43 K/mm3 (0.9-3.2); Lymphocytes Percent Auto 18.1 % (18.3-44.2); Mean Corpuscular HGB Conc 33.7 g/dl (32-36); Mean Corpuscular Hemoglobin 33.3 pg (26-34); Mean Corpuscular Volume 98.9 fl (80-100); Mean Platelet Volume 10.1 fl (7.4-10.4); Monocytes Absolute Auto 0.9 K/mm3 (0.1-0.6); Neutrophils Percent Auto 63.1 % (45.5-73.1); Platelet Count Result 265 k/mm3 (150-375); Red Blood Count 2.82 M/mm3 (4.2-5.4); Red Cell Distribution Width 14.6 % (11.5-14.5); White Blood Count 7.9 K/mm3 (4.5-10.0)
[2024-08-10 05:26] LABS: Alanine Aminotransferase 21 U/L (6-35); Albumin Level 3.3 g/dL (3.5-5.1); Alkaline Phosphatase 75 U/L (38-126); Anion Gap 9 mmol/L (4-12); Aspartate Amino Transferase 33 U/L (14-36); Bilirubin,Total 0.7 mg/dL (0.2-1.3); Blood Urea Nitrogen 26 mg/dL (7-17); Calcium 8.4 mg/dL (8.4-10.2); Carbon Dioxide 27 mmol/L (22-30); Chloride 97 mmol/L (98-107); Estimated CRCL calculation 22 ml/min; Estimated Glomerular Filt Rate 21; Glucose 122 mg/dL (65-110); Phosphorus 3.3 mg/dL (2.5-4.5); Potassium 3.2 mmol/L (3.4-5.0); Sodium 133 mmol/L (137-145)
[2024-08-10] MEDS: LEVOTHYROXINE SODIUM 75 MCG TABLET PO (06:18)
[2024-08-10 07:42] LABS: MRSA (PCR) NOT DETECTED (NOT DETECTE)
--- NOTE | 2024-08-10 08:26 | P.PNIM_ITS ---
Progress Note: A&P Assessment and Plan (1) Bacteremia: Code(s): R78.81 - Bacteremia Status: Acute Assessment and Plan: 08/09/24: * blood cultures final results showing Enterococcus faecalis * Rocephin and vancomycin discontinued and patient started on ampicillin * 2nd set of blood culture showing Gram-positive cocci in chains * will obtain another blood culture in the morning * unknown source of infection at this time * ultrasound of AV graft site 08/10/24: * 2nd set of blood cultures showing enterococcus faecalis on final read * New set of blood cultures obtained and pending today * Continue Ampicillin * US of AV graft site was negative for any mass or abscess. (2) Fall: Code(s): W19.XXXA - Unspecified fall, initial encounter Status: Acute Assessment and Plan: 08/09/24: * continue PT and OT 08/10/24: * No change to current treatment plan (3) Acute hypokalemia: Code(s): E87.6 - Hypokalemia Status: Acute Assessment and Plan: 08/09/24: * potassium 3.3 this morning 08/10/24: * potassium 3.2 today * Will get HD today (4) Hyperlipidemia: Qualifiers: Hyperlipidemia type: mixed hyperlipidemia Qualified Code(s): E78.2 - Mixed hyperlipidemia Code(s): E78.5 - Hyperlipidemia, unspecified Status: Chronic Assessment and Plan: 08/09/24: * continue atorvastatin 08/10/24: * No change to current treatment plan (5) Hypothyroid: Qualifiers: Hypothyroidism type: acquired Qualified Code(s): E03.9 - Hypothyroidism, unspecified Code(s): E03.9 - Hypothyroidism, unspecified Status: Chronic Assessment and Plan: 08/09/24: * continue Synthroid 08/10/24: * No change to current treatment plan (6) A-fib: Qualifiers: Atrial fibrillation type: paroxysmal Qualified Code(s): I48.0 - Paroxysmal atrial fibrillation Code(s): I48.91 - Unspecified atrial fibrillation Status: Chronic Assessment and Plan: 08/09/24: * continue Eliquis and metoprolol 08/10/24: * No change to current treatment plan (7) End stage renal disease: Code(s): N18.6 - End stage renal disease Status: Chronic Assessment and Plan: 08/09/24: * following with Dr. Camp at [facility] in [place]. * Thursday dialysis * nephrology following 08/10/24: * Nephrology following * Plan for HD today Time Spent With Patient Time with patient: 15 - 25 minutes Subjective Date/time seen: 08/10/24 08:26 Interval history: Interval history: this is a 78-year-old end-stage renal disease on dialysis Thursday who presented to the hospital on 08/07/2024 with shortness of breath and weakness for 2 days. Workup in the hospital included a chest x-ray which showed small left pleural effusion, airspace opacities at the left lung base, cardiomegaly. Initial labs showed a white blood cell count of 9.9, hemoglobin 10.1, INR 1.4, potassium 2.8, sodium 127, chloride 89, creatinine 2.50, EGFR 19, troponins flat x3. UA was obtained and showed 1+ urine bacteria otherwise negative. Blood cultures were obtained on the which are showing Enterococcus faecalis patient was on Rocephin and vancomycin and then switched over to ampicillin. New set of blood cultures were obtained today which are showing Gram-positive cocci in chains on preliminary read. Nephrology was consulted for dialysis needs. Culture results and anti
--- NOTE | 2024-08-10 08:26 | PM.IMPN ---
Progress Note: A&P Assessment and Plan (1) Bacteremia: Code(s): R78.81 - Bacteremia Status: Acute Assessment and Plan: 08/09/24: blood cultures final results showing Enterococcus faecalis Rocephin and vancomycin discontinued and patient started on ampicillin 2nd set of blood culture showing Gram-positive cocci in chains will obtain another blood culture in the morning unknown source of infection at this time ultrasound of AV graft site 08/10/24: 2nd set of blood cultures showing enterococcus faecalis on final read New set of blood cultures obtained and pending today Continue Ampicillin US of AV graft site was negative for any mass or abscess. (2) Fall: Code(s): W19.XXXA - Unspecified fall, initial encounter Status: Acute Assessment and Plan: 08/09/24: continue PT and OT 08/10/24: No change to current treatment plan (3) Acute hypokalemia: Code(s): E87.6 - Hypokalemia Status: Acute Assessment and Plan: 08/09/24: potassium 3.3 this morning 08/10/24: potassium 3.2 today Will get HD today (4) Hyperlipidemia: Qualifiers: Hyperlipidemia type: mixed hyperlipidemia Qualified Code(s): E78.2 - Mixed hyperlipidemia Code(s): E78.5 - Hyperlipidemia, unspecified Status: Chronic Assessment and Plan: 08/09/24: continue atorvastatin 08/10/24: No change to current treatment plan (5) Hypothyroid: Qualifiers: Hypothyroidism type: acquired Qualified Code(s): E03.9 - Hypothyroidism, unspecified Code(s): E03.9 - Hypothyroidism, unspecified Status: Chronic Assessment and Plan: 08/09/24: continue Synthroid 08/10/24: No change to current treatment plan (6) A-fib: Qualifiers: Atrial fibrillation type: paroxysmal Qualified Code(s): I48.0 - Paroxysmal atrial fibrillation Code(s): I48.91 - Unspecified atrial fibrillation Status: Chronic Assessment and Plan: 08/09/24: continue Eliquis and metoprolol 08/10/24: No change to current treatment plan (7) End stage renal disease: Code(s): N18.6 - End stage renal disease Status: Chronic Assessment and Plan: 08/09/24: following with Dr. Camp at [facility]. Thursday dialysis nephrology following 08/10/24: Nephrology following Plan for HD today Time Spent With Patient Time with patient: 15 - 25 minutes Subjective Date/time seen: 08/10/24 08:26 Interval history: Interval history: this is a 78-year-old end-stage renal disease on dialysis Thursday who presented to the hospital on 08/07/2024 with shortness of breath and weakness for 2 days. Workup in the hospital included a chest x-ray which showed small left pleural effusion, airspace opacities at the left lung base, cardiomegaly. Initial labs showed a white blood cell count of 9.9, hemoglobin 10.1, INR 1.4, potassium 2.8, sodium 127, chloride 89, creatinine 2.50, EGFR 19, troponins flat x3. UA was obtained and showed 1+ urine bacteria otherwise negative. Blood cultures were obtained on the which are showing Enterococcus faecalis patient was on Rocephin and vancomycin and then switched over to ampicillin. New set of blood cultures were obtained today which are showing Gram-positive cocci in chains on preliminary read. Nephrology was consulted for dialysis needs. Culture results and antibiotics were discussed with Infectious Disease Pharmacist. 08/10/24 new set of blood cultures obtained and pending. 2nd set of blood cultures showing enterococcus faecalis on final read. Subjective: No new complaints today. Labs and cultures reviewed. Review of Systems Review of Systems: All systems reviewed & are unremarkable except as noted in HPI and below Constitutional: Constitutional: Reports as per HPI and Reports no additional constitutional complaints Eyes:
[2024-08-10] MEDS: AMPICILLIN 2 GM/NS 100 ML 2 GM/100 ML BAG IVPB ×2 (08:43→20:28)
[2024-08-10] MEDS: MIDODRINE HCL 10 MG TABLET PO ×2 (12:58→18:09)
[2024-08-10] MEDS: FUROSEMIDE 80 MG TABLET PO ×2 (12:59→18:09)
[2024-08-10] MEDS: diphenhydrAMINE HCl CAP 25 MG CAPSULE PO (12:59)
[2024-08-10] MEDS: ERGOCALCIFEROL 50,000 UNITS CAPSULE 50000 UNITS PO (13:01)
[2024-08-10] MEDS: SODIUM CHLORIDE 0.9% IV 1,000 ML 999 ML IV CONT (14:15)
[2024-08-10] MEDS: EPOETIN ALFA-EPBX 10,000 UNITS/ML VIAL 10000 UNITS IV PUSH (14:33)
--- NOTE | 2024-08-10 14:52 | PM.PNNEP ---
Progress Note: A&P Assessment and Plan (1) End stage renal disease: Code(s): N18.6 - End stage renal disease Status: Chronic Assessment and Plan: HD today continue outpatient schedule of Thu/Thu/Thursday follow electrolytes, volume status, and clearance outpatient dialysis center = [facility] primary local truck driver = Dr. Camp (2) Bacteremia: Code(s): R78.81 - Bacteremia Status: Acute Assessment and Plan: presumed etiology of fevers blood cultures with Enterococcus source unclear has AVG for dialysis access this does not clinically appear infected (no erythema/pain..etc) imaging of AVG negative for fluid collection/abscess on antibiotics follow repeat cultures (3) Hypertension: Qualifiers: Hypertension type: primary hypertension Qualified Code(s): I10 - Essential (primary) hypertension Code(s): I10 - Essential (primary) hypertension Status: Chronic Assessment and Plan: well controlled on metoprolol (but suspect this is more for her Afib) on midodrine on dialysis days (4) Anemia: Code(s): D64.9 - Anemia, unspecified Status: Chronic Assessment and Plan: due to her ESRD SHANITA with dialysis follow trend of H/H (5) Hypokalemia: Code(s): E87.6 - Hypokalemia Status: Chronic Assessment and Plan: suspect a chronic issue on potassium supplementation as an outpatient replete PRN adjusting dialysis bath to compensate (6) A-fib: Qualifiers: Atrial fibrillation type: paroxysmal Qualified Code(s): I48.0 - Paroxysmal atrial fibrillation Code(s): I48.91 - Unspecified atrial fibrillation Status: Chronic Assessment and Plan: rate control strategy on anticoagulation (7) Weakness: Code(s): R53.1 - Weakness Status: Acute Assessment and Plan: due to low K+ versus bacteremia/infection? continue supportive care Will continue to follow. Subjective Date/time seen: 08/10/24 14:52 Interval history: Follow-up for end stage renal disease on hemodialysis. Tolerating dialysis treatment at the time of my visit (seen on HD at 2:45PM); appears to be doing reasonably well aside from having chills (and feeling cold); no issues/events overnight or earlier today to report; no apparent distress voiced. Exam Narrative: General: elderly but WD/WN female in NAD Heart: normal S1 and S2; no rub Lungs: clear anteriorly Abdomen: soft, nontender, nondistended, positive bowel sounds Extremities: no cyanosis or clubbing; no edema Skin: no rash Objective Data Vital Signs Vital Signs: Vital Signs Temp Pulse Resp BP Pulse Ox O2 Del Method 08/10/24 14:45 48 L 126/53 L 08/10/24 14:25 45 L 133/49 L 08/10/24 14:15 98.2 F 58 L 18 130/60 08/10/24 08:00 58 L 08/10/24 08:40 Room Air 08/10/24 05:53 97.8 F 50 L 20 115/47 L 96 08/10/24 04:00 46 L 08/10/24 00:00 45 L 08/09/24 20:00 52 L 08/09/24 20:00 Room Air 08/09/24 20:56 98.2 F 51 L 20 92/60 L 99 Intake/Output Intake/Output: Intake & Output 08/07/24 08/08/24 08/09/24 08/10/24 23:59 23:59 23:59 23:59 Intake Total 1220 2570 1800 1020 Output Total 1100 700 Balance 1220 1470 1100 1020 Meds/Results Medications: Active Medications Generic Name Dose Route Start Last Admin Trade Name Freq PRN Reason Stop Dose Admin Acetaminophen 650 mg 08/07/24 18:02 08/08/24 21:19 Acetaminophen 325 Mg Tablet PO 650 mg Q6H PRN Administration Mild Pain (1-3) or Fever Apixaban 2.5 mg 08/07/24 09:00 08/10/24 12:57 Apixaban 2.5 Mg Tablet PO Not Given Q12HR RIMMA Atorvastatin Calcium 40 mg 08/07/24 21:00 08/09/24 20:51 Atorvastatin 40 Mg Tablet PO 40 mg HS RIMMA Administration Diphenhydramine HCl 25 mg 08/09/24 17:00 08/10/24 12:59 Diphenhydramine Hcl Cap 25 Mg Cap
--- NOTE | 2024-08-10 14:52 | P.PNNP_ITS ---
Progress Note: A&P Assessment and Plan (1) End stage renal disease: Code(s): N18.6 - End stage renal disease Status: Chronic Assessment and Plan: * HD today * continue outpatient schedule of Thu/Thu/Thursday * follow electrolytes, volume status, and clearance * outpatient dialysis center = [facility] * primary plaster mold maker = Dr. Camp (2) Bacteremia: Code(s): R78.81 - Bacteremia Status: Acute Assessment and Plan: * presumed etiology of fevers * blood cultures with Enterococcus * source unclear * has AVG for dialysis access * this does not clinically appear infected (no erythema/pain..etc) * imaging of AVG negative for fluid collection/abscess * on antibiotics * follow repeat cultures (3) Hypertension: Qualifiers: Hypertension type: primary hypertension Qualified Code(s): I10 - Essential (primary) hypertension Code(s): I10 - Essential (primary) hypertension Status: Chronic Assessment and Plan: * well controlled * on metoprolol (but suspect this is more for her Afib) * on midodrine on dialysis days (4) Anemia: Code(s): D64.9 - Anemia, unspecified Status: Chronic Assessment and Plan: * due to her ESRD * SHANITA with dialysis * follow trend of H/H (5) Hypokalemia: Code(s): E87.6 - Hypokalemia Status: Chronic Assessment and Plan: * suspect a chronic issue * on potassium supplementation as an outpatient * replete PRN * adjusting dialysis bath to compensate (6) A-fib: Qualifiers: Atrial fibrillation type: paroxysmal Qualified Code(s): I48.0 - Paroxysmal atrial fibrillation Code(s): I48.91 - Unspecified atrial fibrillation Status: Chronic Assessment and Plan: * rate control strategy * on anticoagulation (7) Weakness: Code(s): R53.1 - Weakness Status: Acute Assessment and Plan: * due to low K+ versus bacteremia/infection? * continue supportive care Will continue to follow. Subjective Date/time seen: 08/10/24 14:52 Interval history: Follow-up for end stage renal disease on hemodialysis. Tolerating dialysis treatment at the time of my visit (seen on HD at 2:45PM); appears to be doing reasonably well aside from having chills (and feeling cold); no issues/events overnight or earlier today to report; no apparent distress voiced. Exam Narrative: General: elderly but WD/WN female in NAD Heart: normal S1 and S2; no rub Lungs: clear anteriorly Abdomen: soft, nontender, nondistended, positive bowel sounds Extremities: no cyanosis or clubbing; no edema Skin: no rash Objective Data Vital Signs Vital Signs: Vital Signs Temp Pulse Resp BP Pulse Ox O2 Del Method 08/10/24 14:45 48 L 126/53 L 08/10/24 14:25 45 L 133/49 L 08/10/24 14:15 98.2 F 58 L 18 130/60 08/10/24 08:00 58 L 08/10/24 08:40 Room Air 08/10/24 05:53 97.8 F 50 L 20 115/47 L 96 08/10/24 04:00 46 L 08/10/24 00:00 45 L 08/09/24 20:00 52 L 08/09/24 20:00 Room Air 08/09/24 20:56 98.2 F 51 L 20 92/60 L 99 Intake/Output Intake/Output: Intake & Output 07/26
[2024-08-10] MEDS: ATORVASTATIN 40 MG TABLET PO (20:28)
[2024-08-10] MEDS: APIXABAN 2.5 MG TABLET PO (20:28)
[2024-08-11] VITALS (11 sets, daily range): BP systolic 91–132; BP diastolic 50–78; PULSE 44–62; RESP 16–18; TEMP 36.1–36.5; O2SAT 96–99
[2024-08-11] MEDS: LEVOTHYROXINE SODIUM 75 MCG TABLET PO (06:48)
--- NOTE | 2024-08-11 07:51 | P.PNIM_ITS ---
Progress Note: A&P Assessment and Plan (1) Bacteremia: Code(s): R78.81 - Bacteremia Status: Acute Assessment and Plan: 08/09/24: * blood cultures final results showing Enterococcus faecalis * Rocephin and vancomycin discontinued and patient started on ampicillin * 2nd set of blood culture showing Gram-positive cocci in chains * will obtain another blood culture in the morning * unknown source of infection at this time * ultrasound of AV graft site 08/10/24: * 2nd set of blood cultures showing enterococcus faecalis on final read * New set of blood cultures obtained and pending today * Continue Ampicillin * US of AV graft site was negative for any mass or abscess. 08/11/24: * 3rd set of blood cultures are still showing no growth today preliminary read * Continue ampicillin (2) Fall: Code(s): W19.XXXA - Unspecified fall, initial encounter Status: Acute Assessment and Plan: 08/09/24: * continue PT and OT 08/10/24: * No change to current treatment plan (3) Acute hypokalemia: Code(s): E87.6 - Hypokalemia Status: Acute Assessment and Plan: 08/09/24: * potassium 3.3 this morning 08/10/24: * potassium 3.2 today * Will get HD today 08/11/24: * Potassium 3.2 today * Will go ahead and give 30 mEq of potassium today * Continue to trend (4) Hyperlipidemia: Qualifiers: Hyperlipidemia type: mixed hyperlipidemia Qualified Code(s): E78.2 - Mixed hyperlipidemia Code(s): E78.5 - Hyperlipidemia, unspecified Status: Chronic Assessment and Plan: 08/09/24: * continue atorvastatin 08/10/24: * No change to current treatment plan (5) Hypothyroid: Qualifiers: Hypothyroidism type: acquired Qualified Code(s): E03.9 - Hypothyroidism, unspecified Code(s): E03.9 - Hypothyroidism, unspecified Status: Chronic Assessment and Plan: 08/09/24: * continue Synthroid 08/10/24: * No change to current treatment plan (6) A-fib: Qualifiers: Atrial fibrillation type: paroxysmal Qualified Code(s): I48.0 - Paroxysmal atrial fibrillation Code(s): I48.91 - Unspecified atrial fibrillation Status: Chronic Assessment and Plan: 10/15/24: * continue Eliquis and metoprolol 08/10/24: * No change to current treatment plan (7) End stage renal disease: Code(s): N18.6 - End stage renal disease Status: Chronic Assessment and Plan: 08/09/24: * following with Dr. Camp at [facility] in [place]. * Thursday dialysis * nephrology following 08/10/24: * Nephrology following * Plan for HD today 08/11/24: * No change to current treatment Time Spent With Patient Time with patient: 15 - 25 minutes Subjective Date/time seen: 08/11/24 07:51 Interval history: Interval history: this is a 78-year-old end-stage renal disease on dialysis Thursday who presented to the hospital on 08/07/2024 with shortness of breath and weakness for 2 days. Workup in the hospital included a chest x-ray which showed small left pleural effusion, airspace opacities at the left lung base, cardiomegaly. Initial labs showed a white blood cell count of 9.9, hemoglobin 10.1, INR 1.4, potassium 2.8, sodium 127, chloride 89, creatinine 2.50, EGFR 19, troponins flat x3. UA was obtained and showed 1+ urine bacteria otherwise negative. Blood cultures were obtained on the
--- NOTE | 2024-08-11 07:51 | PM.IMPN ---
Progress Note: A&P Assessment and Plan (1) Bacteremia: Code(s): R78.81 - Bacteremia Status: Acute Assessment and Plan: 08/09/24: blood cultures final results showing Enterococcus faecalis Rocephin and vancomycin discontinued and patient started on ampicillin 2nd set of blood culture showing Gram-positive cocci in chains will obtain another blood culture in the morning unknown source of infection at this time ultrasound of AV graft site 08/10/24: 2nd set of blood cultures showing enterococcus faecalis on final read New set of blood cultures obtained and pending today Continue Ampicillin US of AV graft site was negative for any mass or abscess. 08/11/24: 3rd set of blood cultures are still showing no growth today preliminary read Continue ampicillin (2) Fall: Code(s): W19.XXXA - Unspecified fall, initial encounter Status: Acute Assessment and Plan: 08/09/24: continue PT and OT 08/10/24: No change to current treatment plan (3) Acute hypokalemia: Code(s): E87.6 - Hypokalemia Status: Acute Assessment and Plan: 08/09/24: potassium 3.3 this morning 08/10/24: potassium 3.2 today Will get HD today 08/11/24: Potassium 3.2 today Will go ahead and give 30 mEq of potassium today Continue to trend (4) Hyperlipidemia: Qualifiers: Hyperlipidemia type: mixed hyperlipidemia Qualified Code(s): E78.2 - Mixed hyperlipidemia Code(s): E78.5 - Hyperlipidemia, unspecified Status: Chronic Assessment and Plan: 08/09/24: continue atorvastatin 08/10/24: No change to current treatment plan (5) Hypothyroid: Qualifiers: Hypothyroidism type: acquired Qualified Code(s): E03.9 - Hypothyroidism, unspecified Code(s): E03.9 - Hypothyroidism, unspecified Status: Chronic Assessment and Plan: 08/09/24: continue Synthroid 08/10/24: No change to current treatment plan (6) A-fib: Qualifiers: Atrial fibrillation type: paroxysmal Qualified Code(s): I48.0 - Paroxysmal atrial fibrillation Code(s): I48.91 - Unspecified atrial fibrillation Status: Chronic Assessment and Plan: 08/09/24: continue Eliquis and metoprolol 08/10/24: No change to current treatment plan (7) End stage renal disease: Code(s): N18.6 - End stage renal disease Status: Chronic Assessment and Plan: 08/09/24: following with Dr. Camp at [facility] in [place]. Thursday dialysis nephrology following 08/10/24: Nephrology following Plan for HD today 08/11/24: No change to current treatment Time Spent With Patient Time with patient: 15 - 25 minutes Subjective Date/time seen: 08/11/24 07:51 Interval history: Interval history: this is a 78-year-old end-stage renal disease on dialysis Thursday who presented to the hospital on 08/07/2024 with shortness of breath and weakness for 2 days. Workup in the hospital included a chest x-ray which showed small left pleural effusion, airspace opacities at the left lung base, cardiomegaly. Initial labs showed a white blood cell count of 9.9, hemoglobin 10.1, INR 1.4, potassium 2.8, sodium 127, chloride 89, creatinine 2.50, EGFR 19, troponins flat x3. UA was obtained and showed 1+ urine bacteria otherwise negative. Blood cultures were obtained on the which are showing Enterococcus faecalis patient was on Rocephin and vancomycin and then switched over to ampicillin. New set of blood cultures were obtained today which are showing Gram-positive cocci in chains on preliminary read. Nephrology was consulted for dialysis needs. Culture results and antibiotics were discussed with Infectious Disease Pharmacist. 08/10/24 new set of blood cultures obtained and pending. 2nd set of blood cultures showing enterococcus faecalis on final read. Subjective: No new complaints
[2024-08-11] MEDS: MIDODRINE HCL 10 MG TABLET PO ×3 (08:20→17:03)
[2024-08-11] MEDS: APIXABAN 2.5 MG TABLET PO ×2 (08:20→20:17)
[2024-08-11] MEDS: FUROSEMIDE 80 MG TABLET PO ×2 (09:16→17:03)
[2024-08-11] MEDS: AMPICILLIN 2 GM/NS 100 ML 2 GM/100 ML BAG IVPB ×2 (09:17→21:00)
[2024-08-11] MEDS: POTASSIUM CHLORIDE 10 MEQ ER TABLET PO (10:46)
[2024-08-11] MEDS: POTASSIUM CHLORIDE 20 MEQ ER TABLET PO (10:47)
--- NOTE | 2024-08-11 12:37 | PM.PNNEP ---
Progress Note: A&P Assessment and Plan (1) End stage renal disease: Code(s): N18.6 - End stage renal disease Status: Chronic Assessment and Plan: HD tomorrow continue outpatient schedule of Thu/Thu/Thursday follow electrolytes, volume status, and clearance outpatient dialysis center = [facility] primary bead wrapper = Dr. Camp (2) Bacteremia: Code(s): R78.81 - Bacteremia Status: Acute Assessment and Plan: presumed etiology of fevers blood cultures (from 08/07 and 08/08) with Enterococcus source unclear has AVG for dialysis access this does not clinically appear infected (no erythema/pain..etc) imaging of AVG negative for fluid collection/abscess on antibiotics follow repeat cultures: cultures from 08/10 negative to date (3) Hypertension: Qualifiers: Hypertension type: primary hypertension Qualified Code(s): I10 - Essential (primary) hypertension Code(s): I10 - Essential (primary) hypertension Status: Chronic Assessment and Plan: well controlled on metoprolol (but suspect this is more for her Afib) on midodrine on dialysis days (4) Anemia: Code(s): D64.9 - Anemia, unspecified Status: Chronic Assessment and Plan: due to her ESRD SHANITA with dialysis follow trend of H/H (5) Hypokalemia: Code(s): E87.6 - Hypokalemia Status: Chronic Assessment and Plan: suspect a chronic issue on potassium supplementation as an outpatient replete PRN adjusting dialysis bath to compensate (6) A-fib: Qualifiers: Atrial fibrillation type: paroxysmal Qualified Code(s): I48.0 - Paroxysmal atrial fibrillation Code(s): I48.91 - Unspecified atrial fibrillation Status: Chronic Assessment and Plan: rate control strategy on anticoagulation (7) Weakness: Code(s): R53.1 - Weakness Status: Acute Assessment and Plan: due to low K+ versus bacteremia/infection? continue supportive care Will continue to follow. Subjective Date/time seen: 08/11/24 12:37 Interval history: Follow-up for end stage renal disease on hemodialysis. Tolerated dialysis yesterday without any issues or problems; no apparent distress noted and voices no acute complaints at the time of my visit; no events overnight or earlier this morning; anxious about discharge/going home. Exam Narrative: General: elderly but WD/WN female in NAD Heart: normal S1 and S2; no rub Lungs: clear anteriorly Abdomen: soft, nontender, nondistended, positive bowel sounds Extremities: no cyanosis or clubbing; no edema Skin: no nodules Objective Data Vital Signs Vital Signs: Vital Signs Temp Pulse Resp BP Pulse Ox O2 Del Method 08/11/24 12:30 96.9 F L 52 L 16 124/58 L 96 08/11/24 12:00 51 L 08/11/24 08:20 Room Air 08/11/24 08:20 59 L 08/11/24 08:15 97.1 F L 62 16 102/78 97 08/11/24 06:02 97.7 F 52 L 18 125/51 L 98 08/11/24 04:00 49 L 08/11/24 00:00 49 L 08/10/24 20:00 49 L 08/10/24 20:15 97.2 F L 49 L 18 113/51 L 97 08/10/24 17:35 97.9 F 52 L 18 116/41 L Intake/Output Intake/Output: Intake & Output 08/08/24 08/09/24 08/10/24 08/11/24 23:59 23:59 23:59 23:59 Intake Total 2570 1800 1360 500 Output Total 8156 274 2486 300 Balance 1470 1100 360 200 Meds/Results Medications: Active Medications Generic Name Dose Route Start Last Admin Trade Name Freq PRN Reason Stop Dose Admin Acetaminophen 650 mg 08/07/24 18:02 08/08/24 21:19 Acetaminophen 325 Mg Tablet PO 650 mg Q6H PRN Administration Mild Pain (1-3) or Fever Apixaban 2.5 mg 08/07/24 09:00 08/11/24 08:20 Apixaban 2.5 Mg Tablet PO 2.5 mg Q12HR RIMMA Administration Atorvastatin Calcium 40 mg 08/07/24 21:00 08/10/24 20:28 Atorvastatin 40 Mg Tablet PO 40 mg HS RIMMA Administration Di
--- NOTE | 2024-08-11 12:37 | P.PNNP_ITS ---
Progress Note: A&P Assessment and Plan (1) End stage renal disease: Code(s): N18.6 - End stage renal disease Status: Chronic Assessment and Plan: * HD tomorrow * continue outpatient schedule of Thu/Thu/Thursday * follow electrolytes, volume status, and clearance * outpatient dialysis center = [facility] * primary clam sorter = Dr. Camp (2) Bacteremia: Code(s): R78.81 - Bacteremia Status: Acute Assessment and Plan: * presumed etiology of fevers * blood cultures (from 08/07 and 08/08) with Enterococcus * source unclear * has AVG for dialysis access * this does not clinically appear infected (no erythema/pain..etc) * imaging of AVG negative for fluid collection/abscess * on antibiotics * follow repeat cultures: * cultures from 08/10 negative to date (3) Hypertension: Qualifiers: Hypertension type: primary hypertension Qualified Code(s): I10 - Essential (primary) hypertension Code(s): I10 - Essential (primary) hypertension Status: Chronic Assessment and Plan: * well controlled * on metoprolol (but suspect this is more for her Afib) * on midodrine on dialysis days (4) Anemia: Code(s): D64.9 - Anemia, unspecified Status: Chronic Assessment and Plan: * due to her ESRD * SHANITA with dialysis * follow trend of H/H (5) Hypokalemia: Code(s): E87.6 - Hypokalemia Status: Chronic Assessment and Plan: * suspect a chronic issue * on potassium supplementation as an outpatient * replete PRN * adjusting dialysis bath to compensate (6) A-fib: Qualifiers: Atrial fibrillation type: paroxysmal Qualified Code(s): I48.0 - Paroxysmal atrial fibrillation Code(s): I48.91 - Unspecified atrial fibrillation Status: Chronic Assessment and Plan: * rate control strategy * on anticoagulation (7) Weakness: Code(s): R53.1 - Weakness Status: Acute Assessment and Plan: * due to low K+ versus bacteremia/infection? * continue supportive care Will continue to follow. Subjective Date/time seen: 08/11/24 12:37 Interval history: Follow-up for end stage renal disease on hemodialysis. Tolerated dialysis yesterday without any issues or problems; no apparent distress noted and voices no acute complaints at the time of my visit; no events overnight or earlier this morning; anxious about discharge/going home. Exam Narrative: General: elderly but WD/WN female in NAD Heart: normal S1 and S2; no rub Lungs: clear anteriorly Abdomen: soft, nontender, nondistended, positive bowel sounds Extremities: no cyanosis or clubbing; no edema Skin: no nodules Objective Data Vital Signs Vital Signs: Vital Signs Temp Pulse Resp BP Pulse Ox O2 Del Method 08/11/24 12:30 96.9 F L 52 L 16 124/58 L 96 08/11/24 12:00 51 L 08/11/24 08:20 Room Air 08/11/24 08:20 59 L 08/11/24 08:15 97.1 F L 62 16 102/78 97 08/11/24 06:02 97.7 F 52 L 18 125/51 L 98 08/11/24 04:00 49 L 08/11/24 00:00 49 L 08/10/24 20:00 49 L 08/10/24 20:15 97.2 F L 49 L 18 113/51 L 97 08/10/24 17:35 97.9 F 52 L 18 116/41 L Intake/Output Intake/Output:
[2024-08-11] MEDS: ATORVASTATIN 40 MG TABLET PO (20:17)
[2024-08-11] MEDS: ACETAMINOPHEN 325 MG TABLET 650 MG PO (20:24)
[2024-08-12] VITALS (26 sets, daily range): BP systolic 106–154; BP diastolic 41–61; PULSE 42–67; RESP 16–18; TEMP 36.3–37; O2SAT 97–100
[2024-08-12 05:11] LABS: Basophils Absolute Auto 0.1 K/mm3 (0.0-0.1); Basophils Percent Auto 0.9 % (0.2-1.2); Eosinophils Absolute Auto 0.2 K/mm3 (0-0.3); Eosinophils Percent Auto 2.4 % (0-4.4); Hematocrit 29.5 % (37.0-47.0); Hemoglobin 9.7 g/dL (12.0-15.0); Immature Granulocyte Absolute 0.45 K/mm3 (0.00-0.031); Lymphocytes Absolute Auto 1.83 K/mm3 (0.9-3.2); Lymphocytes Percent Auto 20.5 % (18.3-44.2); Mean Corpuscular HGB Conc 32.9 g/dl (32-36); Mean Corpuscular Hemoglobin 33.2 pg (26-34); Mean Platelet Volume 9.6 fl (7.4-10.4); Monocytes Absolute Auto 0.7 K/mm3 (0.1-0.6); Monocytes Percent Auto 7.3 % (2.6-8.5); Neutrophils Absolute Auto 5.7 K/mm3 (1.3-6.7); Neutrophils Percent Auto 63.9 % (45.5-73.1); Platelet Count Result 379 k/mm3 (150-375); Red Blood Count 2.92 M/mm3 (4.2-5.4); Red Cell Distribution Width 15.1 % (11.5-14.5); White Blood Count 8.9 K/mm3 (4.5-10.0)
[2024-08-12 05:23] LABS: Albumin Level 3.6 g/dL (3.5-5.1); Anion Gap 8 mmol/L (4-12); Blood Urea Nitrogen 17 mg/dL (7-17); Calcium 8.8 mg/dL (8.4-10.2); Carbon Dioxide 28 mmol/L (22-30); Chloride 100 mmol/L (98-107); Estimated CRCL calculation 22 ml/min; Estimated Glomerular Filt Rate 21; Glucose 101 mg/dL (65-110); Magnesium 2.2 mg/dL (1.6-2.3); Phosphorus 3.9 mg/dL (2.5-4.5); Potassium 3.9 mmol/L (3.4-5.0); Sodium 136 mmol/L (137-145)
[2024-08-12 05:34] LABS: Platelet Estimate Adequate (Adequate)
[2024-08-12 05:35] LABS: Anisocytosis 1+; Burr Cells 1+; Ovalocytes 1+; Schistocytes None Seen
[2024-08-12] MEDS: LEVOTHYROXINE SODIUM 75 MCG TABLET PO (06:21)
[2024-08-12] MEDS: MIDODRINE HCL 10 MG TABLET PO (08:11)
[2024-08-12] MEDS: diphenhydrAMINE HCl CAP 25 MG CAPSULE PO (08:20)
--- NOTE | 2024-08-12 08:21 | PC.NURSE ---
patient taken off unit to dialysis. spoke with dialysis nurse at 0815 asking if I needed to send patient's epoetin or not as it is to be administered by dialysis nurse. dialysis nurse to get from pharmacy.
[2024-08-12 08:53] LABS: Vancomycin Random 6.5 ug/mL (10-20)
[2024-08-12] MEDS: EPOETIN ALFA-EPBX 10,000 UNITS/ML VIAL 10000 UNITS IV PUSH (09:39)
[2024-08-12] MEDS: SODIUM CHLORIDE 0.9% IV 1,000 ML 999 ML IV CONT (09:42)
--- NOTE | 2024-08-12 10:40 | P.PNNP_ITS ---
Progress Note: A&P Assessment and Plan (1) End stage renal disease: Code(s): N18.6 - End stage renal disease Status: Chronic Assessment and Plan: * HD today * continue outpatient schedule of Thu/Thu/Thursday * follow electrolytes, volume status, and clearance * outpatient dialysis center = [facility] * primary culinary chef = Dr. Camp (2) Bacteremia: Code(s): R78.81 - Bacteremia Status: Acute Assessment and Plan: * presumed etiology of fevers * blood cultures (from 08/07 and 08/08) with Enterococcus * source unclear * has AVG for dialysis access * this does not clinically appear infected (no erythema/pain..etc) * imaging of AVG negative for fluid collection/abscess * on antibiotics * follow repeat cultures: * cultures from 08/10 negative to date (3) Hypertension: Qualifiers: Hypertension type: primary hypertension Qualified Code(s): I10 - Essential (primary) hypertension Code(s): I10 - Essential (primary) hypertension Status: Chronic Assessment and Plan: * well controlled * on metoprolol (but suspect this is more for her Afib) * on midodrine on dialysis days (4) Anemia: Code(s): D64.9 - Anemia, unspecified Status: Chronic Assessment and Plan: * due to her ESRD * SHANITA with dialysis * follow trend of H/H (5) Hypokalemia: Code(s): E87.6 - Hypokalemia Status: Chronic Assessment and Plan: * suspect a chronic issue * on potassium supplementation as an outpatient * replete PRN * adjusting dialysis bath to compensate (6) A-fib: Qualifiers: Atrial fibrillation type: paroxysmal Qualified Code(s): I48.0 - Paroxysmal atrial fibrillation Code(s): I48.91 - Unspecified atrial fibrillation Status: Chronic Assessment and Plan: * rate control strategy * on anticoagulation (7) Weakness: Code(s): R53.1 - Weakness Status: Acute Assessment and Plan: * due to low K+ versus bacteremia/infection? * continue supportive care Not opposed to discharge from renal perspective if otherwise medically stable and outpatient antibiotics with her dialysis clinic has been arranged/finalized. Will continue to follow. Subjective Date/time seen: 08/12/24 10:40 Interval history: Follow-up for end stage renal disease on hemodialysis. Tolerating dialysis treatment at the time of my visit (seen on HD at 10:30AM); no apparent distress noted; no issues/events overnight or earlier this morning; she is hoping for discharge later today if possible. Exam Narrative: General: elderly but WD/WN female in NAD Heart: normal S1 and S2; no rub Lungs: clear anteriorly Abdomen: soft, nontender, nondistended, positive bowel sounds Extremities: no cyanosis or clubbing; no edema Skin: warm and dry Objective Data Vital Signs Vital Signs: Vital Signs Temp Pulse Resp BP Pulse Ox O2 Del Method FiO2 08/12/24 10:30 44 L 151/57 H 08/12/24 10:15 44 L 139/61 08/12/24 10:00 44 L 143/55 H 08/12/24 09:45 43 L 149/47 H 08/12/24 09:30 48 L 149/54 H 08/12/24 09:15 45 L 146/55 H 08/12/24 09:00 47 L 132/51 L 08/12/24 08:45 46 L 125/55 L 08/12/24 08:41 47 L 121/55 L
--- NOTE | 2024-08-12 10:40 | PM.PNNEP ---
Progress Note: A&P Assessment and Plan (1) End stage renal disease: Code(s): N18.6 - End stage renal disease Status: Chronic Assessment and Plan: HD today continue outpatient schedule of Thu/Thu/Thursday follow electrolytes, volume status, and clearance outpatient dialysis center = [facility] primary flight attendant ramp = Dr. Camp (2) Bacteremia: Code(s): R78.81 - Bacteremia Status: Acute Assessment and Plan: presumed etiology of fevers blood cultures (from 08/07 and 08/08) with Enterococcus source unclear has AVG for dialysis access this does not clinically appear infected (no erythema/pain..etc) imaging of AVG negative for fluid collection/abscess on antibiotics follow repeat cultures: cultures from 08/10 negative to date (3) Hypertension: Qualifiers: Hypertension type: primary hypertension Qualified Code(s): I10 - Essential (primary) hypertension Code(s): I10 - Essential (primary) hypertension Status: Chronic Assessment and Plan: well controlled on metoprolol (but suspect this is more for her Afib) on midodrine on dialysis days (4) Anemia: Code(s): D64.9 - Anemia, unspecified Status: Chronic Assessment and Plan: due to her ESRD SHANITA with dialysis follow trend of H/H (5) Hypokalemia: Code(s): E87.6 - Hypokalemia Status: Chronic Assessment and Plan: suspect a chronic issue on potassium supplementation as an outpatient replete PRN adjusting dialysis bath to compensate (6) A-fib: Qualifiers: Atrial fibrillation type: paroxysmal Qualified Code(s): I48.0 - Paroxysmal atrial fibrillation Code(s): I48.91 - Unspecified atrial fibrillation Status: Chronic Assessment and Plan: rate control strategy on anticoagulation (7) Weakness: Code(s): R53.1 - Weakness Status: Acute Assessment and Plan: due to low K+ versus bacteremia/infection? continue supportive care Not opposed to discharge from renal perspective if otherwise medically stable and outpatient antibiotics with her dialysis clinic has been arranged/finalized. Will continue to follow. Subjective Date/time seen: 08/12/24 10:40 Interval history: Follow-up for end stage renal disease on hemodialysis. Tolerating dialysis treatment at the time of my visit (seen on HD at 10:30AM); no apparent distress noted; no issues/events overnight or earlier this morning; she is hoping for discharge later today if possible. Exam Narrative: General: elderly but WD/WN female in NAD Heart: normal S1 and S2; no rub Lungs: clear anteriorly Abdomen: soft, nontender, nondistended, positive bowel sounds Extremities: no cyanosis or clubbing; no edema Skin: warm and dry Objective Data Vital Signs Vital Signs: Vital Signs Temp Pulse Resp BP Pulse Ox O2 Del Method FiO2 08/12/24 10:30 44 L 151/57 H 08/12/24 10:15 44 L 139/61 08/12/24 10:00 44 L 143/55 H 08/12/24 09:45 43 L 149/47 H 08/12/24 09:30 48 L 149/54 H 08/12/24 09:15 45 L 146/55 H 08/12/24 09:00 47 L 132/51 L 08/12/24 08:45 46 L 125/55 L 08/12/24 08:41 47 L 121/55 L 08/12/24 08:30 97.9 F 67 18 111/45 L 99 08/12/24 08:30 99 08/12/24 05:10 97.6 F 50 L 18 122/57 L 97 08/12/24 04:00 43 L 08/12/24 00:00 44 L 08/11/24 20:00 46 L 08/11/24 21:43 97.6 F 46 L 16 132/50 L 97 08/11/24 16:00 44 L 08/11/24 14:52 52 L 16 124/58 L 96 Intake/Output Intake/Output: Intake & Output 08/09/24 08/10/24 08/11/24 08/12/24 23:59 23:59 23:59 23:59 Intake Total 1800 1360 950 650 Output Total 700 9715 898 1651 Balance 1100 360 650 -1350 Meds/Results Medications: Active Medications Generic Name Dose Route Start Last Admin Trade Name Freq PRN Reason Stop Dose Admi
--- NOTE | 2024-08-12 12:28 | PC.NURSE ---
pt returned to room from dialysis.
--- NOTE | 2024-08-12 12:47 | P.PNIM_ITS ---
Progress Note: A&P Assessment and Plan (1) Bacteremia: Code(s): R78.81 - Bacteremia Status: Acute Assessment and Plan: 08/09/24: * blood cultures final results showing Enterococcus faecalis * Rocephin and vancomycin discontinued and patient started on ampicillin * 2nd set of blood culture showing Gram-positive cocci in chains * will obtain another blood culture in the morning * unknown source of infection at this time * ultrasound of AV graft site 08/10/24: * 2nd set of blood cultures showing enterococcus faecalis on final read * New set of blood cultures obtained and pending today * Continue Ampicillin * US of AV graft site was negative for any mass or abscess. 08/11/24: * 3rd set of blood cultures are still showing no growth today preliminary read * Continue ampicillin 08/12/24: * Blood cultures still showing no growth to date * Ampicillin changed to Vancomycin today (2) Fall: Code(s): W19.XXXA - Unspecified fall, initial encounter Status: Acute Assessment and Plan: 08/09/24: * continue PT and OT 08/10/24: * No change to current treatment plan (3) Bradycardia: Code(s): R00.1 - Bradycardia, unspecified Status: Acute Assessment and Plan: 08/12/24: * Patient bradycardia 40-50's * Currently on Midodrine due to hypotension. Usually only receives it on HD days however has required it more often here in the hospital due to labile blood pressures. Blood pressures improved. Will stop Midodrine today and see if this improves her bradycardia. Midodrine use is likely the cause of the bradycardia. * If improved HR tomorrow, plan for discharge home. (4) Acute hypokalemia: Code(s): E87.6 - Hypokalemia Status: Acute Assessment and Plan: 08/09/24: * potassium 3.3 this morning 08/10/24: * potassium 3.2 today * Will get HD today 08/11/24: * Potassium 3.2 today * Will go ahead and give 30 mEq of potassium today * Continue to trend 08/12/24: * Potassium 3.9 * No need for replacement * Continue to trend (5) Hyperlipidemia: Qualifiers: Hyperlipidemia type: mixed hyperlipidemia Qualified Code(s): E78.2 - Mixed hyperlipidemia Code(s): E78.5 - Hyperlipidemia, unspecified Status: Chronic Assessment and Plan: 08/09/24: * continue atorvastatin 08/10/24: * No change to current treatment plan (6) Hypothyroid: Qualifiers: Hypothyroidism type: acquired Qualified Code(s): E03.9 - Hypothyroidism, unspecified Code(s): E03.9 - Hypothyroidism, unspecified Status: Chronic Assessment and Plan: 08/09/24: * continue Synthroid 08/10/24: * No change to current treatment plan (7) A-fib: Qualifiers: Atrial fibrillation type: paroxysmal Qualified Code(s): I48.0 - Paroxysmal atrial fibrillation Code(s): I48.91 - Unspecified atrial fibrillation Status: Chronic Assessment and Plan: 08/09/24: * continue Eliquis and metoprolol 08/10/24: * No change to current treatment plan (8) End stage renal disease: Code(s): N18.6 - End stage renal disease Status: Chronic Assessment and Plan: 08/09/24: * following with Dr. Camp at [facility] in [place]. * Thursday dialysis * nephrology following 08/10/24: * Nephrology following * Plan for HD today 08/11/24: * No change to current treatment
--- NOTE | 2024-08-12 12:47 | PM.IMPN ---
Progress Note: A&P Assessment and Plan (1) Bacteremia: Code(s): R78.81 - Bacteremia Status: Acute Assessment and Plan: 08/09/24: blood cultures final results showing Enterococcus faecalis Rocephin and vancomycin discontinued and patient started on ampicillin 2nd set of blood culture showing Gram-positive cocci in chains will obtain another blood culture in the morning unknown source of infection at this time ultrasound of AV graft site 08/10/24: 2nd set of blood cultures showing enterococcus faecalis on final read New set of blood cultures obtained and pending today Continue Ampicillin US of AV graft site was negative for any mass or abscess. 08/11/24: 3rd set of blood cultures are still showing no growth today preliminary read Continue ampicillin 08/12/24: Blood cultures still showing no growth to date Ampicillin changed to Vancomycin today (2) Fall: Code(s): W19.XXXA - Unspecified fall, initial encounter Status: Acute Assessment and Plan: 08/09/24: continue PT and OT 08/10/24: No change to current treatment plan (3) Bradycardia: Code(s): R00.1 - Bradycardia, unspecified Status: Acute Assessment and Plan: 08/12/24: Patient bradycardia 40-50's Currently on Midodrine due to hypotension. Usually only receives it on HD days however has required it more often here in the hospital due to labile blood pressures. Blood pressures improved. Will stop Midodrine today and see if this improves her bradycardia. Midodrine use is likely the cause of the bradycardia. If improved HR tomorrow, plan for discharge home. (4) Acute hypokalemia: Code(s): E87.6 - Hypokalemia Status: Acute Assessment and Plan: 08/09/24: potassium 3.3 this morning 08/10/24: potassium 3.2 today Will get HD today 08/11/24: Potassium 3.2 today Will go ahead and give 30 mEq of potassium today Continue to trend 08/12/24: Potassium 3.9 No need for replacement Continue to trend (5) Hyperlipidemia: Qualifiers: Hyperlipidemia type: mixed hyperlipidemia Qualified Code(s): E78.2 - Mixed hyperlipidemia Code(s): E78.5 - Hyperlipidemia, unspecified Status: Chronic Assessment and Plan: 08/09/24: continue atorvastatin 08/10/24: No change to current treatment plan (6) Hypothyroid: Qualifiers: Hypothyroidism type: acquired Qualified Code(s): E03.9 - Hypothyroidism, unspecified Code(s): E03.9 - Hypothyroidism, unspecified Status: Chronic Assessment and Plan: 08/09/24: continue Synthroid 08/10/24: No change to current treatment plan (7) A-fib: Qualifiers: Atrial fibrillation type: paroxysmal Qualified Code(s): I48.0 - Paroxysmal atrial fibrillation Code(s): I48.91 - Unspecified atrial fibrillation Status: Chronic Assessment and Plan: 08/09/24: continue Eliquis and metoprolol 08/10/24: No change to current treatment plan (8) End stage renal disease: Code(s): N18.6 - End stage renal disease Status: Chronic Assessment and Plan: 08/09/24: following with Dr. Camp at [facility] in [place]. Thursday dialysis nephrology following 08/10/24: Nephrology following Plan for HD today 08/11/24: No change to current treatment 08/12/24: No change to current treatment plan Time Spent With Patient Time with patient: 25 - 35 minutes Subjective Date/time seen: 08/12/24 12:47 Interval history: Interval history: this is a 78-year-old end-stage renal disease on dialysis Thursday who presented to the hospital on 08/07/2024 with shortness of breath and weakness for 2 days. Workup in the hospital included a chest x-ray which showed small left pleural effusion, airspace opacities at the left lung base, cardiomegaly. Initial labs showed a white blood cell count
[2024-08-12] MEDS: VANCOMYCIN 1,500 MG/NS 500 ML 1,500 MG/500 ML BAG 250 MG IVPB (13:24)
[2024-08-12] MEDS: FUROSEMIDE 80 MG TABLET PO (17:45)
[2024-08-12] MEDS: APIXABAN 2.5 MG TABLET PO (20:11)
[2024-08-12] MEDS: ATORVASTATIN 40 MG TABLET PO (20:11)
[2024-08-13] VITALS: PULSE 49
[2024-08-13 04:00] VITALS: PULSE 51
[2024-08-13 05:54] VITALS: BP 134/54; PULSE 54; RESP 18; TEMP 36.1; O2SAT 96
[2024-08-13 06:08] LABS: Estimated CRCL calculation 28 ml/min; Estimated Glomerular Filt Rate 27
[2024-08-13] MEDS: LEVOTHYROXINE SODIUM 75 MCG TABLET PO (06:29)
[2024-08-13] MEDS: ACETAMINOPHEN 325 MG TABLET 650 MG PO (06:30)
--- NOTE | 2024-08-13 07:29 | PM.DS ---
DS: Admitting Diagnosis Discharge Date 08/13/24 Admitting Diagnosis Acute hypokalemia Hyperlipidemia Hypothyroidism Hypertension AFib Fall End-stage renal disease DS: Discharge Diagnosis Discharge Diagnosis (1) Bacteremia: Code(s): R78.81 - Bacteremia Status: Acute (2) Fall: Code(s): W19.XXXA - Unspecified fall, initial encounter Status: Acute (3) Bradycardia: Code(s): R00.1 - Bradycardia, unspecified Status: Acute (4) Acute hypokalemia: Code(s): E87.6 - Hypokalemia Status: Acute (5) Hyperlipidemia: Qualifiers: Hyperlipidemia type: mixed hyperlipidemia Qualified Code(s): E78.2 - Mixed hyperlipidemia Code(s): E78.5 - Hyperlipidemia, unspecified Status: Chronic (6) Hypothyroid: Qualifiers: Hypothyroidism type: acquired Qualified Code(s): E03.9 - Hypothyroidism, unspecified Code(s): E03.9 - Hypothyroidism, unspecified Status: Chronic (7) A-fib: Qualifiers: Atrial fibrillation type: paroxysmal Qualified Code(s): I48.0 - Paroxysmal atrial fibrillation Code(s): I48.91 - Unspecified atrial fibrillation Status: Chronic (8) End stage renal disease: Code(s): N18.6 - End stage renal disease Status: Chronic DS: Summary Hospital Course Reason for hospitalization: Acute hypokalemia Hyperlipidemia Hypothyroidism Hypertension AFib Fall End-stage renal disease Hospital Course: this is a 78-year-old end-stage renal disease on dialysis Thursday who presented to the hospital on 08/07/2024 with shortness of breath and weakness for 2 days. Workup in the hospital included a chest x-ray which showed small left pleural effusion, airspace opacities at the left lung base, cardiomegaly. Initial labs showed a white blood cell count of 9.9, hemoglobin 10.1, INR 1.4, potassium 2.8, sodium 127, chloride 89, creatinine 2.50, EGFR 19, troponins flat x3. UA was obtained and showed 1+ urine bacteria otherwise negative. Blood cultures were obtained on the which are showing Enterococcus faecalis patient was on Rocephin and vancomycin and then switched over to ampicillin. New set of blood cultures were obtained today which are showing Gram-positive cocci in chains on preliminary read. Nephrology was consulted for dialysis needs. Culture results and antibiotics were discussed with Infectious Disease Pharmacist. 08/10/24 new set of blood cultures obtained and pending. 2nd set of blood cultures showing enterococcus faecalis on final read. Third set of blood cultures showing no growth to date on preliminary read. She was transition from ampicillin over to vancomycin yesterday and is tolerating well. Plan is for her to receive 5 more doses on her dialysis days with an end date 08/24/2024. She is stable for discharge at this time. She will need to follow with her primary care physician in 2 weeks. Final diagnosis: Fall, acute hypokalemia, bacteremia Status at Discharge Cognitive/behavioral status at discharge: Alert oriented x4 Functional status at discharge: independent ambulation Overall status at discharge: patient is progressing back to baseline Time Spent with Patient Time attestation: Total time spent providing and/or coordinating discharge services: Time spent: Greater than 30 minutes Exam Narrative: General: In no acute distress Cardiac: Normal S1 and S2. No murmur, gallops or friction rubs, peripheral pulses intact. Respiratory: Lungs clear to auscultation, no adventitious lung sounds, currently on room air Gastrointestinal: soft, non-distended, non-tender, normoactive bowel sounds. : anuric Neuro: Alert and oriented x4 DS: Data Data Completed and Pending Completed studies during hospitalization: Chest x-ray x2 Tissue cultures Pending studies at discharge: Blood cultures Labs on day of discharge: Labs from last 24 hours 08/13/24 08/12/24 05:43 04:34
[2024-08-13 08:00] VITALS: PULSE 48
[2024-08-13] MEDS: FUROSEMIDE 80 MG TABLET PO (09:28)
[2024-08-13] MEDS: APIXABAN 2.5 MG TABLET PO (09:28)
[2024-08-13] MEDS: INFLUENZA VACCINE HIGH DOSE (>64) 180 MCG/0.5 ML SYRINGE IM (14:55)
--- NOTE | 2024-08-13 15:00 | PC.NURSE ---
IV vancomycin script/ DC instructions faxed to dialysis facility listed in DC instructions.
== END 2024-08-13 15:00 | disposition home or self-care (01) | DRG 871 ==
LOC: ANHED 04:29 → ANH2MED 05:31
PROVIDERS: Internal Medicine Nephrology; Admitting Provider Internal Medicine; Emergency Provider Student in an Organized Health Care Education/Training Program; PCP Internal Medicine; Visit Provider Nurse Practitioner Acute Care
DX: R78.81 Bacteremia (principal); N18.6 End stage renal disease; I13.2 Hypertensive heart and chronic kidney disease with heart failure and with stage 5 chronic kidney disease, or end stage renal disease; E87.1 Hypo-osmolality and hyponatremia; E87.6 Hypokalemia; I48.0 Paroxysmal atrial fibrillation; I50.9 Heart failure, unspecified; D63.1 Anemia in chronic kidney disease; E78.5 Hyperlipidemia, unspecified; E03.9 Hypothyroidism, unspecified; N25.0 Renal osteodystrophy; R00.1 Bradycardia, unspecified; B95.2 Enterococcus as the cause of diseases classified elsewhere; Z99.2 Dependence on renal dialysis; Z87.891 Personal history of nicotine dependence; Z23 Encounter for immunization; Z79.01 Long term (current) use of anticoagulants
CPT/HCPCS: 36415; 71045; 76882; 80048; 80053; 80069; 80202; 81001; 82565; 83690; 83735; 84100; 84484; 85025; 85610; 85730; 86706; 87040; 87181; 87340; 87641; 90471; 90662; 93005; 96367; 96374; 96375; 97161; 97165; 99285; A9270; G0008; G0257; G0378; J0290; J0696; J3370; J3480; J7030; J7040; P9047; Q5105

== ENCOUNTER 2025-04-24 13:21 | Emergency (ER) | payer MEDICARE, SELFPAY ==
[2025-04-24] VITALS (20 sets, daily range): BP systolic 100–129; BP diastolic 61–74; PULSE 92–103; RESP 19–33; TEMP 36.5–36.7; O2SAT 95–100
--- NOTE | ~2025-04-24 | XR_ITS ---
EXAMINATION: XR chest 2V Exam Date/Time: 04/24/2025 17:30 CDT HISTORY: sob, cough Comparison: 08/12/2024. RESULT: Lines, tubes, and devices: Left upper extremity vascular stent. Lungs and pleura: Unchanged left lateral costophrenic angle blunting, with streaky subsegmental left basilar opacities. No focal consolidation, pleural effusion, or pneumothorax. Left lower lobe granul tete. Cardiomediastinal silhouette: Stable. Other: No acute osseous or upper abdominal finding. 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 Reviewed, dictated and finalized at location K. IMPRESSION: Recurrent/residual left basilar atelectasis/consolidation and small left pleura l effusion versus chronic scarring and pleural blunting.
--- OUTSIDE RECORDS SUMMARY | 2025-04-24 13:42 | XMS_ITS | Referral Summary ---
Author Organization [facility] Address [address] [place] [address] Care Team Providers Care Animal Care Technician Name Role Phone Rajendra Dawson MD Unavailable [phone] No, Physician Primary Care Provider [phone] Encounters Date Type Department Care Team Description 03/14/2025 7:52 AM CDT - 03/14/2025 11:59 PM CDT Hospital Encounter [facility] D[facility] Center at [address] [place], [place] [id number] ESRD (end stage renal disease) on dialysis (HCC) (Primary Dx); Other specified complication of vascular prosthetic devices, implants and grafts, initial encounter; Dyslipidemia; Essential hypertension Discharge Disposition: Discharge to home or self care 03/14/2025 7:34 AM CDT - 03/14/2025 11:59 PM CDT Hospital Encounter [facility] [address] [place] [address] [address] [place] [address] Dependence on renal dialysis; End stage renal disease (HCC); Other specified complication of vascular prosthetic devices, implants and grafts, initial encounter Discharge Disposition: Discharge to home or self care 03/02/2025 Orders Only [facility] D[facility] Access Center at [facility] [address] [place] [address] [address] [place] [address] Rajendra Dawson MD Dependence on renal dialysis (Primary Dx); End stage renal disease (HCC); Other specified complication of vascular prosthetic devices, implants and grafts, initial encounter 02/20/2025 Telephone [facility] Cardiology [address] [facility] [address] [phone] Evan Watkins MD 02/16/2025 Results Follow-Up [facility] Cardiology [address] [place] [phone] Evan Watkins MD Pulmonary Function Test - 02/01/2025 Results Follow-Up [facility] Cardiology [address] [place] [phone] Milena Alcala RN Lipid panel 01/31/2025 Orders Only [facility] Cardiology [address] [place] [phone] Andressa Portillo MD 01/31/2025 7:44 AM CDT - 01/31/2025 11:59 PM CDT Hospital Encounter [facility] Respiratory Therapy [address] [place] [address] PAF (paroxysmal atrial fibrillation) (HCC); Nonrheumatic aortic valve insufficiency Discharge Disposition: Discharge to home or self care from Last 3 Months Allergies No known active allergies Medications midodrine (PROAMATINE) 10 mg tablet Take 1 tablet (10 mg total) by mouth daily as needed 05/02/20 22 Active levothyroxine (SYNTHROID) 75 mcg tablet Take 1 tablet (75 mcg total) by mouth daily 05/02/20 22 Active atorvastatin (LIPITOR) 40 mg tablet Take 1 tablet (40 mg total) by mouth nightly 05/02/20 22 Active ergocalciferol (VITAMIN D) 50,000 unit capsule Take 1 capsule (50,000 Units total) by mouth once a week On Wednesdays Active furosemide (LASIX) 80 mg tablet Take 1 tablet (80 mg total) by mouth 2 (two) times a day 09/02/20 22 Active metoprolol tartrate (LOPRESSOR) 25 mg immediate release tablet Take one tablet by mouth twice daily. DO NOT TAKE ON DIALYSIS DAYS. 180 tablet 1 05/21/20 23 Active Eliquis 5 mg tablet TAKE 1 TABLET BY MOUTH TWICE DAILY 180 tablet 3 12/28/19 24 Active amiodarone (PACERONE) 100 mg tablet TAKE 1 TABLET BY MOUTH DAILY 90 tablet 3 04/21/20 25 Active amiodarone (PACERONE) 100 mg tablet Take 1 tablet (100 mg total) by mouth daily 90 tablet 1 08/01/20 24 025 Discontinued Active Problems Problem Noted Date Diagnosed Date Nonrheumatic aortic valve insufficiency 02/01/20 25 ESRD (end stage renal disease) on dialysis 11/05 Assessment & Plan (03/14/2025 9:48 AM CDT): Impression: Patient is being dialyzed through a left brachial axillary AV graft without any issues. Audible bruit and palpable thrill noted on exam. Av duplex scan reveals a patent stent and patent AV graft. Plan: Continue utilizing AV graft for dialysis as per Nephrology. -Patient to follow-up in 3 months for re-evaluation. Encouraged patient to make a sooner appointment if there is any complications dialysis. Assessment & Plan (12/22/2024 3:30 PM SANITATION DIRECTOR): Symptomatic venous outflow stenosis. Will proceed with left arm AV fistulogram with possible intervention. Risks of the procedure including not limited to bleeding, infection, nerve injury, graft compromise, communicated patient with full understanding. She wished to proceed Assessment & Plan (06/21/2024 8:50 AM CDT): Impression: Patient is being dialyzed through a left brachial axillary AV graft without any complications. Patent stent and patent AV graft is noted on AV duplex with elevated velocities noted to the mid graft. Plan: Recommend av fistulogram with possible intervention. Risks of the procedure communicate with the patient to include bleeding, infection, injury, further surgery, limb loss and . Patient voices understanding of these risks and wishes to proceed. -patient to continue utilizing AV graft for dialysis as per Nephrology until scheduled procedure. Assessment & Plan (03/17/2024 8:47 AM CDT): Impression: Patient is being dialyzed through a left brachial axillary AV graft without any complications. Audible bruit and palpable thrill noted on exam. Patent stent and patent AV graft is noted on AV duplex. Elevated velocities are noted distal to left axillary stent. Plan: Discussed with cardiovascular disease specialist regarding elevated velocities. No concerned for stenosis in this area. -continue utilizing left brachial axillary AV graft for dialysis as per Nephrology. -patient follow-up in 3 months for re-evaluation with repeat AV duplex. Encouraged patient make a sooner appointment if there is any complications during dialysis. Assessment & Plan (11/05/2023 11:06 AM SANITATION DIRECTOR): Currently dialyzing through a left upper extremity AV graft. States she has had an episode recently prolonged bleeding for an hour after dialysis. There is an area of outflow stenosis at the cephalic arch noted on current duplex. Discussed the need for fistulogram and discussed procedure with all of its potential risks. Answered all questions at this time she is agreeable and wishes to proceed. Other specified complication of vascular prosthetic devices, implants and grafts, initial encounter 11/05/2023 PAF (paroxysmal atrial fibrillation) 05/22/2023 Dyslipidemia 05/22/2023 Assessment & Plan (03/14/2025 9:48 AM CDT): Impression: Chronic stable. Plan: Continue Lipitor Lipid screening 05/22/2023 Atrial fibrillation 05/27/2022 Diabetes mellitus 05/08/2022 Assessment & Plan (11/05/2023 11:04 AM SANITATION DIRECTOR): Chronic uncontrolled continue as per PCP. Assessment & Plan (08/04/2023 10:16 AM CDT): Continue current medical management as per PCP Assessment & Plan (01/15/2023 1:05 PM CDT): Stable chronic diabetes being controlled with diet and medication. Continue current medical therapy. Assessment & Plan (10/14/2022 11:35 AM SANITATION DIRECTOR): Impression: Diabetes mellitus currently controlled with insulin. Glucose is controlled. Plan: Continue glucose monitoring and management as per primary care provider. Assessment & Plan (05/09/2022 9:17 AM CDT): Controlled. Continue insulin therapy as directed by PCP. Essential hypertension 05/08/2022 Assessment & Plan (03/14/2025 9:48 AM CDT): Impression: Chronic and stable. Plan: Continue Lasix and metoprolol. Assessment & Plan (06/21/2024 8:51 AM CDT): Impression: Chronic and stable. Plan: Continue metoprolol Assessment & Plan (03/17/2024 8:48 AM CDT): Impression: Chronic and stable. Plan: Continue metoprolol Assessment & Plan (11/05/2023 11:05 AM SANITATION DIRECTOR): Controlled continue as per PCP Assessment & Plan (08/04/2023 10:16 AM CDT): Metoprolol, amiodarone Assessment & Plan (04/16/2023 2:23 PM CDT): Metoprolol Assessment & Plan (01/15/2023 1:05 PM CDT): Stable chronic hypertension being controlled medications. Continue current medical therapy Assessment & Plan (10/14/2022 11:36 AM SANITATION DIRECTOR): Impression: Chronic stable hypertension, controlled medications. Blood pressure stable. Plan: Continue blood pressure management as per primary care provider. Assessment & Plan (05/09/2022 9:16 AM CDT): Chronic and controlled. Continue current medical therapy Hyperlipidemia 05/08/2022 Assessment & Plan (06/21/2024 8:52 AM CDT): Impression: Chronic stable. Plan: Continue Lipitor Assessment & Plan (03/17/2024 8:51 AM CDT): Impression: Chronic and stable. Plan: Continue atorvastatin. Assessment & Plan (11/05/2023 11:05 AM SANITATION DIRECTOR): Continue Lipitor Assessment & Plan (08/04/2023 10:16 AM CDT): Lipitor Assessment & Plan (04/16/2023 2:23 PM CDT): Atorvastatin Assessment & Plan (10/14/2022 11:36 AM SANITATION DIRECTOR): Impression: Chronic hyperlipidemia, controlled with statin therapy. Plan: Continue statin therapy as per primary care provider. Obesity 05/08/2022 Shoulder pain 05/08/2022 Cellulitis of lower limb 01/09/2022 Edema of lower extremity 01/09/2022 Alcoholism 08/26/2021 Edema 08/26/2021 Vitamin D deficiency 08/26/2021 Epidermoid cyst of skin 09/08/2017 Resolved Problems Problem Noted Date Diagnosed Date Resolved Date End stage renal disease 05/09/202202/24 Assessment & Plan (08/04/2023 10:17 AM CDT): Routine three-month follow-up visit. No concerns from the patient, she denies any prolonged bleeding or high venous pressures. Good bruit and thrill on exam. Av duplex shows a patent graft no outflow stenosis. Plan: Follow-up in 3 months for routine surveillance with a left upper extremity AV duplex. Assessment & Plan (04/16/2023 2:23 PM CDT): Patient dialyzing well without any issues. Will have patient scheduled to follow-up in 3 months with left arm AV graft scan Assessment & Plan (01/15/2023 1:07 PM CDT): Chronic end-stage renal disease on dialysis through a left upper extremity brachial axillary graft. She is dialyzing without any issues denying any prolonged bleeding or high arterial pressures. AV duplex today shows a patent graft with no outflow stenosis. Plan to return in 3 months for routine maintenance and scan. Assessment & Plan (10/14/2022 2:32 PM SANITATION DIRECTOR): Impression: Patient is being dialyzed through a left brachial axillary AV graft without any complications and denies any neurovascular deficits to her left upper extremity. Patient also has a right Perma catheter that is intact with no concern for infection. AV scan was performed which revealed a patent AV graft. Plan: Patient to be scheduled for right-sided Perma catheter removal. Risks of the procedure communicate with the patient with full understanding. Patient wishes to proceed. Patient to continue utilizing left brachial axillary AV graft until scheduled procedure. Patient is also to follow-up in 3 months for re-evaluation with repeat AV scan. Assessment & Plan (05/09/2022 9:17 AM CDT): On dialysis. Patient needs definitive access have recommended non dominant left arm AV graft. The procedure and all risks have been explained. She understands and agrees to proceed. Social History Tobacco Use Types Packs/Day Years Used Date Smoking Tobacco: Former Cigarettes 0.8 40 1 960 - 2000 Smokeless Tobacco: Never Tobacco Cessation:Counseling Given: Not Answered AUDIT-C Answer Date Recorded Q1: How often do you have a drink containing alc ohol? Never 12/29/2024 Q2: How many drinks containi ng alcohol do you have on a typical day when you are drinking? 1 or 2 12/29/2024 Q3: How often do you have six or more drinks on one occasion? Never 12/29/2024 Personal Safety Answer Date Recorded Have you ever been in or are you currently in a harmful physical or emotional relationship or is someone making you feel afraid or unsafe? Denies 12/29/2024 Comments No Sex and Gender Information Value Date Recorded Sex Assigned at Not on file Legal Sex Female 10:04 AM CDT Gender Identity Female 05/02/2022 10:25 AM CDT Sexual Orientation Not on file Last Filed Vital Signs Vital Sign Reading Time Taken Comments Blood Pressure 116/69 03/14/2025 8:26 AM CDT Pulse 85 03/14/2025 8:26 AM CDT Temperature 37 C (98.6 F) 03/14/2025 8:26 AM CDT Respiratory Rate 22 12/29/2024 11:30 AM SANITATION DIRECTOR Oxygen Saturation 99% 03/14/2025 8:26 AM CDT Inhaled Oxygen Concentration - - Weight 91 kg (200 lb 9.9 oz) 03/14/2025 8:26 AM CDT Height 165.1 cm (5' 5) 03/14/2025 8:26 AM CDT Body Mass Index 33.38 03/14/2025 8:26 AM CDT Plan of Treatment Not on file Medical Devices Implanted Type Area Corporate Treasurer Device Identifier Shelf Expiration Date Model / Serial / Lot [employer] 4-7mm 45cm Stretch Peripheral Standard Raimann Machine Operator Graft Vascular [id number] - [id number] - [id number] Implanted:Qty: 1 on 08/19/2022 by Rajendra Dawson MD at [facility] Left: Arm [employer] [id number] 05/11/2027 [id number] / [id number] / Bard Peripheral Vascular Stent Graft Endovascular Arteriovenous [id number] Covera [id number] - [id number] Implanted:Qty: 1 on 12/01/2023 by Rajendra Dawson MD at [facility] Peripheral Vascular 06/19/2025 [id number] / / [id number] Bard Peripheral Vascular Stent Vasc 100mm 6mm 8fr Covera Str Arteriovenous Cover [id number] - [id number] Implanted:Qty: 1 on 12/29/2024 by Rajendra Dawson MD at [facility] Peripheral Vascular 12/23/2025 [id number] / / [id number] Procedures Procedure Name Priority Date/Time Associated Diagnosis Comments US HEMODIALYSIS ACCESS Schedule Routine, Read Routine (OP Routine) 03/14/2025 8:34 AM CDT Dependence on renal dialysis End stage renal disease (HCC) Other specified complication of vascular prosthetic devices, implants and grafts, initial encounter PULMONARY FUNCTION TEST (PFT) Routine 01/31/2025 8:55 AM CDT PAF (paroxysmal atrial fibrillation) (HCC) Nonrheumatic aortic valve insufficiency LIPID PANEL Routine 01/26/2025 1:34 PM CDT LIPID PANEL Routine 01/25/2025 PAF (paroxysmal atrial fibrillation) (HCC) Essential hypertension Dyslipidemia Nonrheumatic aortic valve insufficiency EGFR STAT 12/29/2024 8:36 AM SANITATION DIRECTOR from Last 3 Months or Most Recently Relevant to Health Maintenance Results * US Hemodialysis Access (03/14/2025 8:34 AM CDT) Anatomical Region Laterality Modality Vascular N/A Ultrasound 03/14/2025 7:53 AM CDT Narrative 03/15/2025 8:48 AM CDT Hemodialysis Access Duplex Report Patient Name: BREONNA ELMORE E : 1945 (79y 6m) Gender: F Study Date: 03/14/2025 07:53:21 AM Cold Roll Operator: Yaneli Osman Provider: RAJENDRA DAWSON Ref Provider: RAJENDRA DAWSON PROCEDURES: Vascular Report: Color Duplex ultrasound with velocity measurements was performed of the left upper extremity access graft. INDICATIONS: Dialysis graft complication and Post op. HISTORY: S/P STENT LEFT AVG 12/29/2024 S/P BA LEFT AVG 06/28/2024 S/P BA/ STENT LEFT AX V 12/01/2023 S/P LUE AVG 08/19/2022. COMPARISONS: The previous exam was completed on 12/22/2024. ACCESS GRAFT: Vessel Velocity Lt Location Brach-Ax AVG Lt Hughes Artery 139.00 cm/sec Lt Arterial Anast 635.00 cm/sec Lt Prx Graft 329.00 cm/sec Lt Mid Graft VF 775.00 mL/min Lt Venous Anast 190.00 cm/sec Lt Hughes Vein 96 (AX V) 148(SCV) cm/sec LEFT STENT MEASUREMENTS: Vessel Velocity Location AVG Lt Stent Prx PSV 388.00 cm/sec Lt Stent Mid PSV 278.00 cm/sec Lt Stent Dst PSV 233.00 cm/sec Location 2 AX V Lt Stent 2 Prx PSV 231.00 cm/sec Lt Stent 2 Mid PSV 242.00 cm/sec Lt Stent 2 Dst PSV 221.00 cm/sec Lt Stent 2 Dst Hughes PSV 163.00 cm/sec FINDINGS: Study Quality: The study quality is adequate. Graft: Patent AV graft. Stent 1: The stent is located in the AVG. Patent upper extremity stent with no evidence of stenosis. Stent 2: The stent is located in the AX V. Patent upper extremity stent with no evidence of stenosis. CONCLUSIONS: 1. Patent left brachial artery to axillary vein graft. Stent in the axillary vein with evidence of InStent stenosis. Electronically Signed By: Param Dawson MD 03/15/2025 8:38:38 AM CDT Procedure Note Param Dawson MD - 03/15/2025 Hemodialysis Access Duplex Report Patient Name: BREONNA ELMOREElisa : 1945 (79y 6m) Gender: F Study Date: 03/14/2025 07:53:21 AM Cold Roll Operator: Yaneli Osman Provider: RAJENDRA DAWSON Ref Provider: RAJENDRA DAWSON PROCEDURES: Vascular Report: Color Duplex ultrasound with velocity measurements wasperformed of the left upper extremity access graft. INDICATIONS: Dialysis graft complication and Post op. HISTORY: S/P STENT LEFT AVG 12/29/2024 S/P BA LEFT AVG 06/28/2024 S/P BA/ STENT LEFT AX V 12/01/2023 S/P LUE AVG 08/19/2022. COMPARISONS: The previous exam was completed on 12/22/2024. ACCESS GRAFT: Vessel Velocity Lt Location Brach-Ax AVG Lt Hughes Artery 139.00 cm/sec Lt Arterial Anast 635.00 cm/sec Lt Prx Graft 329.00 cm/sec Lt Mid Graft VF 775.00 mL/min Lt Venous Anast 190.00 cm/sec Lt Hughes Vein 96 (AX V) 148(SCV) cm/sec LEFT STENT MEASUREMENTS: Vessel Velocity Location AVG Lt Stent Prx PSV 388.00 cm/sec Lt Stent Mid PSV 278.00 cm/sec Lt Stent Dst PSV 233.00 cm/sec Location 2 AX V Lt Stent 2 Prx PSV 231.00 cm/sec Lt Stent 2 Mid PSV 242.00 cm/sec Lt Stent 2 Dst PSV 221.00 cm/sec Lt Stent 2 Dst Hughes PSV 163.00 cm/sec FINDINGS: Study Quality: The study quality is adequate. Graft: Patent AV graft. Stent 1: The stent is located in the AVG. Patent upper extremity stentwith no evidence of stenosis. Stent 2: The stent is located in the AX V. Patent upper extremity stentwith no evidence of stenosis. CONCLUSIONS: 1. Patent left brachial artery to axillary vein graft. Stent in theaxillary vein with evidence of InStent stenosis. Electronically Signed By: Param Dawson MD 03/15/2025 8:38:38 AM CDT us Rajendra Dawson MD [facility] PROCEDURES Final Re sult * (ABNORMAL) Pulmonary Function Test - (01/31/2025 8:55 AM CDT) FVC POST 2.17 1.99 - 3.67 L [facility] FEV1 POST 1.63 1.51 - 2.73 L [facility] [id number] 75.15 62.77 - 89.35 % [facility] [id number]% POST 1.24 0.73 - 3.14 L/s [facility] PEF POST 4.85 4.32 - 7.28 L/s [facility] DLCOc SB 11.69(A) 15.77 - 27.23 ml/(min*mm Hg) [facility] DLCO/VA PRE 3.20 2.75 - 5.41 ml/(min*mm Hg*L) [facility] VA 3.65(A) 5.12 - 5.12 L [facility] TLC PRE 4.22(A) 4.29 - 6.26 L [facility] VC PRE 2.19 1.99 - 3.37 L [facility] IC PRE 1.88(A) 2.12 - 2.12 L [facility] FRC PL PRE 2.34 2.01 - 3.65 L [facility] ERV PRE 0.32(A) 0.57 - 0.57 L [facility] RV PRE 2.02 1.69 - 2.84 L [facility] VTG 2.47 L [facility] RAW PRE 6.10(A) 3.06 - 3.06 cmH2O*s/L [facility] FVC PRE 2.17 1.99 - 3.67 L [facility] FEV1 PRE 1.62 1.51 - 2.73 L [facility] [id number] 74.70 62.77 - 89.35 % [facility] INO00-30% PRE 1.22 0.73 - 3.14 L/s [facility] PEF PRE 4.45 4.32 - 7.28 L/s [facility] Anatomical Region Laterality Modality PFT 01/31/2025 7:57 AM CDT Narrative 01/31/2025 11:51 AM CDT Normal spirometry without obstruction. There is no significant improvement post-bronchodilator therapy. Lung volumes are within normal limits. DLCO is reduced compatible with diffusion impairment. Findings can be seen with emphysema or other pulmonary vascular or pulmonary parenchymal process. Suggest clinical correlation. Electronically signed by Musa Rodriguez MD, FCCP Pulmonary and Critical Care Medicine [facility] us Evan Watkins MD PFT ORDERABLES Final Resul t * Lipid panel (01/26/2025 1:34 PM CDT) Blood Historical [facility] MARTINEZ LAB BLOOD ORDERABLES Maeve l Result * Lipid panel (01/25/2025) SCRIBED Cholesterol, Total 158 l - h EXTERNAL LAB SCRIBED HDL 39 l - h EXTERNAL LAB SCRIBED LDL 84 l - h EXTERNAL LAB SCRIBED Triglycerides 195 l - h EXTERNAL LAB Blood 01/25/2025 Result [facility] Evan Watkins MD LAB BLOOD ORDERABLES Final Result EXTERNAL LAB * (ABNORMAL) eGFR (12/29/2024 8:36 AM SANITATION DIRECTOR) eGFR 22(L) >=60 mL/min/1. 73 m2 Comment: Interpretive Data Reference Interval Normal >/= 90 mL/min/1.73m2 Mildly decreased* 60 - 89 mL/min/1.73m2 Mildly to moderately decreased 45 - 59 mL/min/1.73m2 Moderately to severely decreased 30 - 44 mL/min/1.73m2 Severely decreased 15 - 29 mL/min/1.73m2 Kidney Failure < 15 mL/min/1.73m2 *Relative to young adult level Estimated glomerular filtration rate is determined by the 2020 CKD-EPI equation recommended by the National Kidney Foundation (A Unifying Approach to GFR Estimation: Recommendations of the NKF-ASK Task Force on Reassessing the Inclusion of Race in Diagnosing Kidney Disease, JASN 2020). The CKD-EPI equation should not be used for patients with unstable renal function and has not been validated in children and those over 70. Current interpretive data was last reviewed 2021. Blood 12/29/2024 8:36 AM SANITATION DIRECTOR 12/29/2024 8:39 AM SANITATION DIRECTOR Result [facility] Rajendra Dawson MD LAB BLOOD ORDERABLES Final Result [facility] [address] [facility] Department [place] [address] from Last 3 Months or Most Recently Relevant to Health Maintenance Insurance [facility] MEDICARE Address: [place] [id number] [facility] MEDICARE ADVANTAGE [facility] MEDICARE Address: [address] [place] [id number] Care Teams Animal Care Technician Relationship Specialty Start Date End Date No, Physician PCP - General 12/28/24 Rajendra Dawson MD [address] [facility] [address] [place] [address] Surgeon Surgery 08/19/22
--- OUTSIDE RECORDS SUMMARY | 2025-04-24 13:42 | XMS_ITS | Encounter Summary ---
Author Organization [facility] Address [address] [place] [address] Care Team Providers Care Pourer Bull Ladle Name Role Phone Rajendra Dawson MD Unavailable [phone] Lauren León MD Primary Care Provider + No, Physician Primary Care Provider [phone] Encounter Details Date Type Department Care Team (Late st Contact Info) Description 12/23/2024 Telephone [facility] at [facility] [address] [facility] [address] [place] [address] Rajendra Dawson MD [address] [place], [place] [address] [place] [address] [place] [address] Social History Tobacco Use Types Packs/Day Years Used Date Smoking Tobacco: Former Cigarettes 0.8 40 1 960 - 2000 Smokeless Tobacco: Never AUDIT-C Answer Date Recorded Q1: How often do you have a drink containing alcohol? 4 or more times a week 10/23/2022 Q2: How many drinks containi ng alcohol do you have on a typical day when you are drinking? 1 or 2 Q3: How often do you have si x or more drinks on one occasion? Never 10/23/2022 Personal Safety Answer Date Recorded Have you ever been in or are you currently in a harmful physical or emotional relationship or is someone making you feel afraid or unsafe? Denies 06/28/2024 Comments No Sex and Gender Information Value Date Recorded Sex Assigned at Not on file Legal Sex Female 10:04 AM CDT Gender Identity Female 05/02/2022 10:25 AM CDT Sexual Orientation Not on file documented as of this encounter Plan of Treatment Not on file documented as of this encounter Visit Diagnoses Not on filedocumented in this encounter Care Teams Pourer Bull Ladle Relationship Specialty Start Date End Date Lauren León MD [address] [place] [address] PCP - General Family Medicine 11/13/22 12/27/24 No, Physician PCP - General 12/28/24 Rajendra Dawson MD [address] [facility] [address] [place] [address] [place] [address] Surgeon Surgery 08/19/22 documented as of this encounter
--- OUTSIDE RECORDS SUMMARY | 2025-04-24 13:42 | XMS_ITS | Encounter Summary ---
Author Organization [facility] Healthcare Address [address] [place] [address] Care Team Providers Care Industrial Staff Nurse Name Role Phone Law Robledo MD Primary Care Provider [phone] Antelmo Michele MD Primary Care Provider [phone] Rajendra Dawson MD Unavailable [phone] Lauren León MD Primary Care Provider + No, Physician Primary Care Provider [phone] Encounter Details Date Type Department Care Team (Late st Contact Info) Description 08/13/2022 Telephone [facility] Dialysis Access Center at [facility] [address] [facility] [address] [place] [address] Rajendra Dawson MD [address] [place], [place] [id number] [address] [address] [place] [address] Social History Tobacco Use Types Packs/Day Years Used Date Smoking Tobacco: Former Cigarettes 0.8 40 1 960 - 2000 Smokeless Tobacco: Never Comments:Per SNF former smok er, unknown when patient quit or for how long she smoked. AUDIT-C Answer Date Recorded Q1: How often do you have a drink containing alc ohol? 2-3 times a week 08/15/2022 Q2: How many drinks containi ng alcohol do you have on a typical day when you are drinking? 1 or 2 08/15/2022 Q3: How often do you have si x or more drinks on one occasion? Never 08/15/2022 Comments No Sex and Gender Information Value Date Recorded Sex Assigned at Not on file Legal Sex Female 10:04 AM CDT Gender Identity Female 05/02/2022 10:25 AM CDT Sexual Orientation Not on file documented as of this encounter Functional Status * Audit-C Score Answer Date of Assessment Author 3 08/15/2022 1:48 PM CDT Alayna Borrego RN * Question Answer Date of Assessment Author Q1: How often do you have a drink containing alcohol? 2-3 times a week 08/15/2022 1:48 PM CDT Catie Borrego R N Q2: How many drinks containing alcohol do you have on a typical day when you are drinking? 1 or 2 08/15/2022 1:48 PM CDT Catie Borrego R N Q3: How often do you have six or more drinks on one occasion? Never 08/15/2022 1:48 PM CDT Catie Borrego R N documented as of this encounter Plan of Treatment Not on file documented as of this encounter Visit Diagnoses Not on filedocumented in this encounter Care Teams Industrial Staff Nurse Relationship Specialty Start Date End Date Law Robledo MD [address] [place] [address] PCP - General Internal Medicine 05/08/22 08/14/22 Antelmo Michele MD [address] [place] [address] PCP - General Internal Medicine 08/19/22 11/12/22 Lauren León MD [address] [place] [address] [address] [place] [address] PCP - General Family Medicine 11/13/22 12/27/24 No, Physician PCP - General 12/28/24 Rajendra Dawson MD [address] [facility] [address] [place] [address] Surgeon Surgery 08/19/22 documented as of this encounter
--- OUTSIDE RECORDS SUMMARY | 2025-04-24 13:42 | XMS_ITS | Clinical Summary ---
Author Organization [facility] Address [address] [place] [address] Care Team Providers Care Associate Financial Advisor Name Role Phone Rajendra Dawson MD Unavailable [phone] No, Physician Primary Care Provider [phone] Allergies No known active allergies Medications midodrine [...] dialysis. Assessment & Plan (12/22/2024 3:30 PM DOCUMENT CLERK): Symptomatic venous outflow stenosis. Will proceed with [...] to left axillary stent. Plan: Discussed with field service technician regarding elevated velocities. No concerned for stenosis in this area. -continue utilizing left brachial axillary AV graft for dialysis as per Nephrology. -patient follow-up in 3 months for re-evaluation with repeat AV duplex. Encouraged patient make a sooner appointment if there is any complications during dialysis. Assessment & Plan (11/05/2023 11:06 AM DOCUMENT CLERK): Currently dialyzing through a left upper extremity [...] 05/08/2022 Assessment & Plan (11/05/2023 11:04 AM DOCUMENT CLERK): Chronic uncontrolled continue as per PCP. Assessment & Plan (08/04/2023 10:16 AM CDT): Continue current medical management as per PCP Assessment & Plan (01/15/2023 1:05 PM CDT): Stable chronic diabetes being controlled with diet and medication. Continue current medical therapy. Assessment & Plan (10/14/2022 11:35 AM DOCUMENT CLERK): Impression: Diabetes mellitus currently controlled with insulin. [...] metoprolol Assessment & Plan (11/05/2023 11:05 AM DOCUMENT CLERK): Controlled continue as per PCP Assessment & Plan (08/04/2023 10:16 AM CDT): Metoprolol, amiodarone Assessment & Plan (04/16/2023 2:23 PM CDT): Metoprolol Assessment & Plan (01/15/2023 1:05 PM CDT): Stable chronic hypertension being controlled medications. Continue current medical therapy Assessment & Plan (10/14/2022 11:36 AM DOCUMENT CLERK): Impression: Chronic stable hypertension, controlled medications. Blood [...] atorvastatin. Assessment & Plan (11/05/2023 11:05 AM DOCUMENT CLERK): Continue Lipitor Assessment & Plan (08/04/2023 10:16 AM CDT): Lipitor Assessment & Plan (04/16/2023 2:23 PM CDT): Atorvastatin Assessment & Plan (10/14/2022 11:36 AM DOCUMENT CLERK): Impression: Chronic hyperlipidemia, controlled with statin therapy. Plan: Continue statin therapy as per primary care provider. Obesity 05/08/2022 Shoulder pain 05/08/2022 Cellulitis of lower limb 01/09/2022 Edema of lower extremity 01/09/2022 Alcoholism 08/26/2021 Edema 08/26/2021 Vitamin D deficiency 08/26/2021 Epidermoid cyst of skin 09/08/2017 Resolved Problems Problem Noted Date Diagnosed Date Resolved Date End stage renal disease 05/09/2022 05/2 12/2023 Assessment & Plan (08/04/2023 10:17 AM CDT): [...] scan. Assessment & Plan (10/14/2022 2:32 PM DOCUMENT CLERK): Impression: Patient is being dialyzed through a [...] explained. She understands and agrees to proceed. Encounters Date Type Department Care Team Description 03/14/2025 7:52 AM CDT - 03/14/2025 11:59 PM CDT Hospital Encounter [facility] Dialysis Access Center at [address] [address] ESRD (end stage renal disease) on dialysis (HCC) (Primary Dx); Other specified complication of vascular prosthetic devices, implants and grafts, initial encounter; Dyslipidemia; Essential hypertension Discharge Disposition: Discharge to home or self care 03/14/2025 7:34 AM CDT - 03/14/2025 11:59 PM CDT Hospital Encounter [facility] Medical Office Building [address] [place] [address] [address] [place] [id number] Dependence on renal dialysis; End stage renal disease (HCC); Other specified complication of vascular prosthetic devices, implants and grafts, initial encounter Discharge Disposition: Discharge to home or self care 03/02/2025 Orders Only [facility] Dialysis Access Center at [address] [place] [id number] Rajendra Dawson MD Dependence on renal dialysis (Primary Dx); End stage renal disease (HCC); Other specified complication of vascular prosthetic devices, implants and grafts, initial encounter 02/20/2025 Telephone [facility] Cardiology [address] [place] [address] [address] Evan Watkins MD 02/16/2025 Results Follow-Up [facility] Cardiology [address] [place] [phone] Evan Watkins MD Pulmonary Function Test - 02/01/2025 Results Follow-Up [facility] Cardiology [address] [place] [phone] Milena Alcala RN Lipid panel 01/31/2025 7:44 AM CDT - 01/31/2025 11:59 PM CDT Hospital Encounter [facility] Respiratory Therapy [address] [place] [address] PAF (paroxysmal atrial fibrillation) (HCC); Nonrheumatic aortic valve insufficiency Discharge Disposition: Discharge to home or self care 01/31/2025 Orders Only [facility] Cardiology [address] [facility] [address] [address] Provider, MD Andressa from Last 3 Months Surgical History Surgery Date Site/Laterality Comments HYSTERECTOMY CATARACT EXTRACTION, BILATERAL Bilateral TUNNELED VENOUS CATHETER PLACEMENT 03/06/2022 Right RIJ permacath - Dr. Faria (removed 10/23/22 - Dr. Parma Dawson) COLONOSCOPY years ago CARDIOVERSION 05/28/22 DIALYSIS FISTULA CREATION 08/19/2022 Left brachial axillary graft creation - Dr. Rajendra Dawson AV FISTULA REPAIR 12/01/2023 Left LUE AVG - angioplasty & stent to axillary vein - Dr. Rajendra Dawson AV FISTULA REPAIR 06/28/2024 Left LUE AVG - angioplasty to AVG - Dr. Param Dawson VASCULAR SURGERY PROCEDURE 12/29/2024 Left LUE AVG - stent to AVG - Dr. aRjendra Dawson Medical devices from this surgery are in the Medical Devices section. VASCULAR SURGERY PROCEDURE 12/29/2024 N/A Medical devices from this surgery are in the Medical Devices section. Medical History Medical History Date Comments COPD (chronic obstructive pu lmonary disease) (HCC) Chronic kidney disease ESRD (end stage renal diseas e) on dialysis (HCC) M-W-F Hyperlipidemia, unspecified Type 2 diabetes mellitus (HCC) i s now diet controlled Essential hypertension Chronic atrial fibrillation (HCC) 05/15/2022 Obesity SOB (shortness of breath) on exertion Allergic rhinitis Wears glasses reading Missing teeth, acquired has 2 te eth Uses walker Fall 01/2022 was hospi talized from a fall put in induced coma for 3 weeks; doesn't remember anything about the fall Vitamin D deficiency Hypothyroidism Alcohol dependence (HCC) per PCP note from 06/2022, which says she has quit, but on 08/15 pt reported drinking 1-2 glasses of wine, 2-3 days per week Family History Medical History Relation Name Comments Heart attack Mother's Brother Relation Name Status Comments Mother's Brother Social History Tobacco Use Types Packs/Day Years [...] AM CDT Sexual Orientation Not on file Obstetrics History Last Filed Vital Signs Vital Sign Reading Time Taken Comments Blood Pressure 116/69 03/14/2025 8:26 AM CDT Pulse 85 03/14/2025 8:26 AM CDT Temperature 37 C (98.6 F) 03/14/2025 8:26 AM CDT Respiratory Rate 22 12/29/2024 11:30 AM DOCUMENT CLERK Oxygen Saturation 99% 03/14/2025 8:26 AM CDT Inhaled Oxygen Concentration - - Weight 91 kg (200 lb 9.9 oz) 03/14/2025 8:26 AM CDT Height 165.1 cm (5' 5) 03/14/2025 8:26 AM CDT Body Mass Index 33.38 03/14/2025 8:26 AM CDT Plan of Treatment Health Maintenance Due Date Last Done Comments Albumin Creatinine Ratio, Urine 1945 Depression Screening 1945 Hepatitis C Screening 1945 Osteoporosis Screening-Bone Density Scan 1945 Dilated Eye Exam 1945 Foot Exam 1945 DTaP/Tdap/Td Vaccine (1 - Tdap) 1958 Hepatitis B Screening 1965 Well Visit 65+ 2012 Pneumococcal vaccine 65+ (2 of 2 - PCV) 09/06/2016 09/06/2015 Zoster Vaccine (2 of 3) 09/21/2017 07/27/2017 Hemoglobin A1C 08/23/2022 02/21/2022 Covid-19 Vaccine (5 - 2023-2 5 season) 2024 08/01/2022, 07/26/2022, 01/30/2022, Additional history exists Influenza Vaccine (Season Ended) 2025 08/05/2023, 07/25/2022, 08/26/2021, Additional history exists Fall Risk Assessment 06/28/2025 06/28/2024 eGFR 12/29/2025 12/29/2024, 12/2023, 12/01/2023, Additional history exists Lipid Panel 01/26/2026 01/26/2025, 040 11/2024, 07/28/2024, Additional history exists Medical Devices Implanted Type Area [place] Device Identifier Shelf Expiration Date Model / Serial / Lot [employer] 4-7mm 45cm Stretch Peripheral Standard Sterile Process Coordinator Graft Vascular [id number] - [id number] - [id number] Implanted:Qty: 1 on 08/19/2022 by Rajendra Dawson MD at [facility] Left: Arm [employer] [id number] 05/11/2027 [id number] / [id number] / Bard Peripheral Vascular Stent Graft Endovascular Arteriovenous [id number] Covera [id number] - [id number] Implanted:Qty: 1 on 12/01/2023 by Rajendra Dawson MD at [facility] Bard Peripheral Vascular 06/19/2025 [id number] / / [id number] Bard Peripheral Vascular Stent Vasc 100mm 6mm 8fr Covera Str Arteriovenous Cover [id number] - [id number] Implanted:Qty: 1 on 12/29/2024 by Rajendra Dawson MD at [facility] Bard Peripheral Vascular 12/23/2025 [id number] / / [id number] Procedures Procedure Name Priority Date/Time Associated Diagnosis [...] valve insufficiency EGFR STAT 12/29/2024 8:36 AM DOCUMENT CLERK from Last 3 Months or Most Recently Relevant to Health Maintenance Results * US Hemodialysis Access (03/14/2025 8:34 AM CDT) Anatomical Region Laterality Modality Vascular N/A Ultrasound 03/14/2025 7:53 AM CDT Narrative 03/15/2025 8:48 AM CDT Hemodialysis Access Duplex Report Patient Name: BREONNA ELMORE E : 1945 (79y 6m) Gender: F Study Date: 03/14/2025 07:53:21 AM Associate Professor Of Physics: Yaneli Osman Provider: RAJENDRA DAWSON Provider: RAJENDRA DAWSON PROCEDURES: Vascular Report: Color [...] Vessel Velocity Lt Location Brach-Ax AVG Lt [place] Artery 139.00 cm/sec Lt Arterial Anast 635.00 cm/sec Lt Prx Graft 329.00 cm/sec Lt Mid Graft VF 775.00 mL/min Lt Venous Anast 190.00 cm/sec Lt [place] Vein 96 (AX V) 148(SCV) cm/sec LEFT STENT MEASUREMENTS: Vessel Velocity Location AVG Lt Stent Prx PSV 388.00 cm/sec Lt Stent Mid PSV 278.00 cm/sec Lt Stent Dst PSV 233.00 cm/sec Location 2 AX V Lt Stent 2 Prx PSV 231.00 cm/sec Lt Stent 2 Mid PSV 242.00 cm/sec Lt Stent 2 Dst PSV 221.00 cm/sec Lt Stent 2 Dst [place] PSV 163.00 cm/sec FINDINGS: Study Quality: The [...] Gender: F Study Date: 03/14/2025 07:53:21 AM Associate Professor Of Physics: Yaneli Osman Order Provider: RAJENDRA DAWSON Ref Provider: RAJENDRA DAWSON [...] Vessel Velocity Lt Location Brach-Ax AVG Lt [place] Artery 139.00 cm/sec Lt Arterial Anast 635.00 cm/sec Lt Prx Graft 329.00 cm/sec Lt Mid Graft VF 775.00 mL/min Lt Venous Anast 190.00 cm/sec Lt [place] Vein 96 (AX V) 148(SCV) cm/sec LEFT STENT MEASUREMENTS: Vessel Velocity Location AVG Lt Stent Prx PSV 388.00 cm/sec Lt Stent Mid PSV 278.00 cm/sec Lt Stent Dst PSV 233.00 cm/sec Location 2 AX V Lt Stent 2 Prx PSV 231.00 cm/sec Lt Stent 2 Mid PSV 242.00 cm/sec Lt Stent 2 Dst PSV 221.00 cm/sec Lt Stent 2 Dst [place] PSV 163.00 cm/sec FINDINGS: Study Quality: The [...] 8:38:38 AM CDT us Rajendra Dawson MD [facility] [place] PROCEDURES Final Re sult * (ABNORMAL) Pulmonary Function Test - (01/31/2025 8:55 AM CDT) FVC POST 2.17 1.99 - 3.67 L [facility] FEV1 POST 1.63 1.51 - 2.73 L [facility] [id number] 75.15 62.77 - 89.35 % [facility] CIN08-92% POST 1.24 0.73 - 3.14 L/s [facility] PEF POST 4.85 4.32 - 7.28 L/s [facility] DLCOc SB 11.69(A) 15.77 - 27.23 ml/(min*mm Hg) [facility] DLCO/VA PRE 3.20 2.75 - 5.41 ml/(min*mm Hg*L) [facility] VA 3.65(A) 5.12 - 5.12 L [facility] TLC PRE 4.22(A) 4.29 - 6.26 L [facility] VC PRE 2.19 1.99 - 3.37 L [facility] IC PRE 1.88(A) 2.12 - 2.12 L [facility] FRC PL PRE 2.34 2.01 - 3.65 L [facility] ERV PRE 0.32(A) 0.57 - 0.57 L [facility] RV PRE 2.02 1.69 - 2.84 L [facility] VTG 2.47 L [facility] RAW PRE 6.10(A) 3.06 - 3.06 cmH2O*s/L [facility] FVC PRE 2.17 1.99 - 3.67 L [facility] FEV1 PRE 1.62 1.51 - 2.73 L [facility] [id number] 74.70 62.77 - 89.35 % [facility] YON58-51% PRE 1.22 0.73 - 3.14 L/s [facility] PEF PRE 4.45 4.32 - 7.28 L/s [facility] Anatomical Region Laterality Modality PFT 01/31/2025 7:57 AM CDT Narrative 01/31/2025 11:51 AM CDT Normal spirometry without obstruction. There is no significant improvement post-bronchodilator therapy. Lung volumes are within normal limits. DLCO is reduced compatible with diffusion impairment. Findings can be seen with emphysema or other pulmonary vascular or pulmonary parenchymal process. Suggest clinical correlation. Electronically signed by Musa Rodriguez MD, [facility] Pulmonary and Critical Care Medicine [facility] Evan Watkins MD PFT ORDERABLES Final Resul t * Lipid panel (01/26/2025 1:34 PM CDT) Blood Critical access hospital LAB BLOOD ORDERABLES Maeve l Result * Lipid panel (01/25/2025) Pathologist [facility] SCRIBED Cholesterol, Total 158 l - h EXTERNAL LAB SCRIBED HDL 39 l - h EXTERNAL LAB SCRIBED LDL 84 l - h EXTERNAL LAB SCRIBED Triglycerides 195 l - h EXTERNAL LAB Blood 01/25/2025 Evan Watkins MD LAB BLOOD ORDERABLES Final Result EXTERNAL LAB * (ABNORMAL) eGFR (12/29/2024 8:36 AM DOCUMENT CLERK) Pathologist [facility] eGFR 22(L) >=60 mL/min/1. 73 m2 Comment: [...] last reviewed 2021. Blood 12/29/2024 8:36 AM DOCUMENT CLERK 12/29/2024 8:39 AM DOCUMENT CLERK us Rajendra Dawson MD LAB BLOOD ORDERABLES Final Result Performing Organization Address City/State/[facility] Phone Number [facility] [place] [address] [facility] [place] [address] from Last 3 Months or Most Recently Relevant to Health Maintenance Insurance [facility] MEDICARE ADVANTAGE [facility] MEDICARE Address: [facility] [address] [place] [address] [facility] MEDICARE ADVANTAGE Care Teams Associate Financial Advisor Relationship Specialty Start Date End Date No, Physician PCP - General 12/28/24 Rajendra Dawson MD [address] [facility] [address] [place] [address] Surgeon Surgery 08/19/22
--- OUTSIDE RECORDS SUMMARY | 2025-04-24 13:42 | XMS_ITS | Clinical Summary ---
Author Organization [facility] [employer] Address [address] [place] [address] Care Team Providers Care Front Office Supervisor Name Role Phone Antelmo Michele MD Primary Care Provider [phone] Source Comments [facility] [employer],non-owned Affiliates and Associated Physician Practices is amultiple site organization consisting of ambulatory clinics and hospital sitesin [place], [place], [place] and [place]. This disclosure is being madepursuant to the Care Everywhere program and may not contain all information available regarding this patient. Last updated 18.[employer] Allergies No known active allergies Medications * Be aware that medications may not be up to date on this document. Alwaysverify current medications with the patient. acetaminophen (TYLENOL) 160 MG/5ML solution Take 20.3125 mL by mouth every 4 hours as needed 04/08/20 22 Active atorvastatin (LIPITOR) 40 MG tablet Take 1 (one) tablet by mouth at bedtime 04/08/20 22 Active heparin 1000 UNIT/ML injectionIndicat ions:heparin dwell for hemodialysis catheter 4.7 mL by Intracatheter route post-Procedure multiple Reasons: heparin dwell for hemodialysis catheter 04/08/20 22 Active heparin 5000 UNIT/ML injection Inject 1 mL subcutaneously 2 times daily 04/08/20 22 Active hydrOXYzine HCl (ATARAX) 25 MG tablet Take 1 (one) tablet by mouth 4 times daily as needed 04/08/20 22 Active insulin aspart (NOVOLOG) pen Inject 0 (zero) Units to 6 (six) Units subcutaneously 3 times daily with meals 04/08/20 22 Active levalbuterol (XOPENEX) 1.25 MG/0.5ML nebulizer solution Inhale 0.5 mL by mouth every 6 hours as needed for Shortness of Breath 04/08/20 Active levothyroxine (SYNTHROID) 75 MCG tablet Take 1 (one) tablet by mouth once daily 04/09/20 Active melatonin 3 MG tablet Take 1 (one) tablet by mouth at bedtime 04/08/20 Active midodrine (PROAMATINE) 10 MG tablet Take 2 (two) tablets by mouth every 8 hours 04/08/20 Active Active Problems Problem Noted Date Diagnosed Date Dyspnea, unspecified type 08/03/2022 C. difficile colitis 04/08/2022 PUD (peptic ulcer disease) 02/27/2022 RYDER (acute kidney injury) 02/20/2022 Atrial fibrillation 02/20/2022 Acute on chronic congestive heart failure 2021 Resolved Problems Problem Noted Date Diagnosed Date Resolved Date Oropharyngeal dysphagia 03/13/202203/26 Gastrointestinal hemorrhage with melena 02/26/2022 04/08/2022 Acute blood loss anemia 02/26/202203/26 Hemorrhagic shock 02/26/2022 04/08/2022 Acute hypoxemic respiratory failure 02/20/2022 04/08/2022 Septic shock 02/20/2022 04/08/2022 Metabolic acidosis 02/20/2022 Social History Tobacco Use Types Packs/Day Years Used Date Smoking Tobacco: Former Cigarettes Smokeless Tobacco: Never Tobacco Cessation:Counseling Given: Yes Hunger Vital Sign Answer Date Recorded Within the past 12 months, y ou worried that your food would run out before you got the money to buy more. Never true 02/22/20 22 Within the past 12 months, t he food you bought just didn't last and you didn't have money to get more. Never true 02/21/2022 Comments Unknown Sex and Gender Information Value Date Recorded Sex Assigned at Not on file Legal Sex Female 5:53 AM [employer]IAN Gender Identity Not on file Sexual Orientation Not on file Last Filed Vital Signs Vital Sign Reading Time Taken Comments Blood Pressure 94/58 04/09/2022 6:01 PM CDT Pulse 73 04/09/2022 6:01 PM CDT Temperature 36.4 C (97.6 F) 04/09/2022 4:01 PM CDT Respiratory Rate 40 04/09/2022 6:01 PM CDT Oxygen Saturation 96% 04/09/2022 6:01 PM CDT Inhaled Oxygen Concentration 30% 04/09/2022 1 :41 AM CDT Weight 105.4 kg (232 lb 5.8 oz) 04/08/2022 3:25 AM CDT Height 167.6 cm (5' 6) 04/02/2022 2:38 AM CDT Body Mass Index 37.5 04/02/2022 2:38 AM CDT Plan of Treatment Health Maintenance Due Date Last Done Comments BONE DENSITY TESTING 1945 DTAP/TDAP/TD VACCINES (1 - Tdap) 1966 PNEUMOCOCCAL VACCINE 50+ (1 of 1 - PCV) 1997 ZOSTER VACCINE (1 of 2) 1997 Respiratory Syncytial Virus (RSV) Vaccine Pt: or over 60 yrs (1 - 1-dose 75+ series) 2022 COVID-19 VACCINE ( season) 2024 07/26/2022, 01/30/2022, 01/09/2022 DEPRESSION SCREENING 10/26/2024 INFLUENZA VACCINE (Season Ended) 2025 07/25/2022, 08/10/2018, 07/27/2017, Additional history exists HEPATITIS C SCREENING Completed 03/26/2022 HEPATITIS B VACCINE Aged Out No longe r eligible based on patient's age to complete this topic HIB VACCINE Aged Out No longer eligi ble based on patient's age to complete this topic HPV VACCINE Aged Out No longer eligi ble based on patient's age to complete this topic MENINGOCOCCAL (Group B) VACCINE SHARED DECISION-MAKING Aged Out No longer eligible based on patient's age to complete this topic MENINGOCOCCAL GROUPS A/C/Y/W VACCINE Aged Out No longer eligible based on patient's age to complete this topic Medical Devices Implanted Type Area Telecommunications Field Technician Device Identifier Shelf Expiration Date Model / Serial / Lot Ivc Filter-02/29/20 22 Implanted:Qty : 1 on 02/28/2022 by Maxx Carvalho MD IVC Filter Right: Vena [employer]ava [employer] INCLUDES THE [facility] / [id number] / [id number] Description:IVC filter place d to RIJ by Dr. Carvalho Procedures Procedure Name Priority Date/Time Associated Diagnosis Comments HEPATITIS SCREEN ACUTE NICA 03/26/2022 3:33 PM CDT from Last 3 Months or Most Recently Relevant to Health Maintenance Results * HEPATITIS SCREEN ACUTE (03/26/2022 3:33 PM CDT) HAV Antibody IgM Non Reactive Non Reactive 03/26/2022 4:43 PM CDT [facility] HBsAg Non Reactive Non Reactive 03/26/2022 4:43 PM CDT [facility] HBc Antibody IgM Non Reactive Non Reactive 03/26/2022 4:43 PM CDT [facility] HCV Antibody Screen Non Reactive Non Reactive 03/26/2022 4:43 PM CDT [facility] Blood BLOOD SPECIMEN / Unknown Venipuncture / Unknown 03/26/2022 3:33 PM CDT 03/26/2022 3:43 PM CDT Narrative [facility] - 03/26/2022 4:43 PM CDT Non Reactive - Antibodies to Hepatitis C virus (HCV) were not detected, result does not exclude early acute HCV infection. Percy Camp MD LAB - CHEMISTRY ORDERABLES Fin al Result Performing Organization Address City/State/[facility] Co de Phone Number [facility] [address] [place] [address] from Last 3 Months or Most Recently Relevant to Health Maintenance Additional Health Concerns Infection Onset Date Last Indicated C DIFF 04/02/2022 04/02/2022 Insurance AETNA AETNA Advance Directives * LIMITED RESUSCITATION-PRIOR AND AFTER ARREST (Latest Code Status on File) Date Activated Date Inactivated Comments 03/15/2022 6:48 PM 04/09/2022 7:38 PM Question Answer Comments Limited Resuscitation: No Chest Compression * LIMITED RESUSCITATION-PRIOR AND AFTER ARREST Date Activated Date Inactivated Comments 03/15/2022 9:53 AM 03/15/2022 6:48 PM Question Answer Comments Limited Resuscitation: No Chest Compress ionNo Intubation, No Invasive Ventilation * LIMITED RESUSCITATION-PRIOR AND AFTER ARREST Date Activated Date Inactivated Comments 03/14/2022 9:12 PM 03/15/2022 9:53 AM Question Answer Comments Limited Resuscitation: No Intubation, No Invasiv e Ventilation * Full Code Date Activated Date Inactivated Comments 03/07/2022 5:01 AM 03/14/2022 9:12 PM * Full Code Date Activated Date Inactivated Comments 02/20/2022 4:46 PM 03/07/2022 5:01 AM Care Teams Front Office Supervisor Relationship Specialty Start Date End Date Antelmo Michele MD [address] [place] [address] PCP - General 01/04/10
--- OUTSIDE RECORDS SUMMARY | 2025-04-24 13:42 | XMS_ITS ---
Author Organization [facility] Address [address] [place] [address] Care Team Providers Care Customer Solutions Coordinator Name Role Phone Erinn Dawson MD Unavailable [phone] No, Physician Primary Care Provider [phone] Dialysis Access Sites Type Status Location Placement Date Removal Da te AV graft Active Left Upper Arm - Anterior 08/19/2022 Hemodialysis Cath Double 05/27/22 Right Subclavian Inactive Right Breast - Upper 05/27/2022 1 Procedures Procedure Name Priority Date/Time Associated Diagnosis [...] valve insufficiency EGFR STAT 12/29/2024 8:36 AM [facility] from Last 3 Months or Most Recently Relevant to Health Maintenance Allergies No known active allergies Medications midodrine [...] dialysis. Assessment & Plan (12/22/2024 3:30 PM [facility]): Symptomatic venous outflow stenosis. Will proceed with [...] to left axillary stent. Plan: Discussed with mechatronics technician regarding elevated velocities. No concerned for stenosis in this area. -continue utilizing left brachial axillary AV graft for dialysis as per Nephrology. -patient follow-up in 3 months for re-evaluation with repeat AV duplex. Encouraged patient make a sooner appointment if there is any complications during dialysis. Assessment & Plan (11/05/2023 11:06 AM [facility]): Currently dialyzing through a left upper extremity [...] 05/08/2022 Assessment & Plan (11/05/2023 11:04 AM [facility]): Chronic uncontrolled continue as per PCP. Assessment & Plan (08/04/2023 10:16 AM CDT): Continue current medical management as per PCP Assessment & Plan (01/15/2023 1:05 PM CDT): Stable chronic diabetes being controlled with diet and medication. Continue current medical therapy. Assessment & Plan (10/14/2022 11:35 AM [facility]): Impression: Diabetes mellitus currently controlled with insulin. [...] metoprolol Assessment & Plan (11/05/2023 11:05 AM [facility]): Controlled continue as per PCP Assessment & Plan (08/04/2023 10:16 AM CDT): Metoprolol, amiodarone Assessment & Plan (04/16/2023 2:23 PM CDT): Metoprolol Assessment & Plan (01/15/2023 1:05 PM CDT): Stable chronic hypertension being controlled medications. Continue current medical therapy Assessment & Plan (10/14/2022 11:36 AM [facility]): Impression: Chronic stable hypertension, controlled medications. Blood [...] atorvastatin. Assessment & Plan (11/05/2023 11:05 AM [facility]): Continue Lipitor Assessment & Plan (08/04/2023 10:16 AM CDT): Lipitor Assessment & Plan (04/16/2023 2:23 PM CDT): Atorvastatin Assessment & Plan (10/14/2022 11:36 AM [facility]): Impression: Chronic hyperlipidemia, controlled with statin therapy. Plan: Continue statin therapy as per primary care provider. Obesity 05/08/2022 Shoulder pain 05/08/2022 Cellulitis of lower limb 01/09/2022 Edema of lower extremity 01/09/2022 Alcoholism 08/26/2021 Edema 08/26/2021 Vitamin D deficiency 08/26/2021 Epidermoid cyst of skin 09/08/2017 Social History Tobacco Use Types Packs/Day Years [...] CDT Respiratory Rate 22 12/29/2024 11:30 AM [facility] Oxygen Saturation 99% 03/14/2025 8:26 AM CDT Inhaled Oxygen Concentration - - Weight 91 kg (200 lb 9.9 oz) 03/14/2025 8:26 AM CDT Height 165.1 cm (5' 5) 03/14/2025 8:26 AM CDT Body Mass Index 33.38 03/14/2025 8:26 AM CDT Results * US Hemodialysis Access (03/14/2025 8:34 AM CDT) Anatomical Region Laterality Modality Vascular N/A Ultrasound 03/14/2025 7:53 AM CDT Narrative 03/15/2025 8:48 AM CDT Hemodialysis Access Duplex Report Patient Name: FRANCISCA ELMORE E : 1945 (79y 6m) Gender: F Study Date: 03/14/2025 07:53:21 AM Thermal Intelligence Analyst: Yaneli Osman Provider: ERINN DAWSON Ref Provider: ERINN DAWSON PROCEDURES: Vascular Report: Color Duplex ultrasound [...] Vessel Velocity Lt Location Brach-Ax AVG Lt Galena Artery 139.00 cm/sec Lt Arterial Anast 635.00 cm/sec Lt Prx Graft 329.00 cm/sec Lt Mid Graft VF 775.00 mL/min Lt Venous Anast 190.00 cm/sec Lt Galena Vein 96 (AX V) 148(SCV) cm/sec LEFT STENT MEASUREMENTS: Vessel Velocity Location AVG Lt Stent Prx PSV 388.00 cm/sec Lt Stent Mid PSV 278.00 cm/sec Lt Stent Dst PSV 233.00 cm/sec Location 2 AX V Lt Stent 2 Prx PSV 231.00 cm/sec Lt Stent 2 Mid PSV 242.00 cm/sec Lt Stent 2 Dst PSV 221.00 cm/sec Lt Stent 2 Dst Galena PSV 163.00 cm/sec FINDINGS: Study Quality: The [...] CDT Procedure Note Param Dawson MD - 05/21/2025 Hemodialysis Access Duplex Report Patient Name: FRANCISCA ELMORE E : 1945 (79y 6m) Gender: F Study Date: 03/14/2025 07:53:21 AM Thermal Intelligence Analyst: Yaneli Osman Provider: ERINN DAWSON Ref Provider: ERINN DAWSON PROCEDURES: Vascular Report: Color Duplex ultrasound [...] Vessel Velocity Lt Location Brach-Ax AVG Lt Galena Artery 139.00 cm/sec Lt Arterial Anast 635.00 cm/sec Lt Prx Graft 329.00 cm/sec Lt Mid Graft VF 775.00 mL/min Lt Venous Anast 190.00 cm/sec Lt Galena Vein 96 (AX V) 148(SCV) cm/sec LEFT STENT MEASUREMENTS: Vessel Velocity Location AVG Lt Stent Prx PSV 388.00 cm/sec Lt Stent Mid PSV 278.00 cm/sec Lt Stent Dst PSV 233.00 cm/sec Location 2 AX V Lt Stent 2 Prx PSV 231.00 cm/sec Lt Stent 2 Mid PSV 242.00 cm/sec Lt Stent 2 Dst PSV 221.00 cm/sec Lt Stent 2 Dst Galena PSV 163.00 cm/sec FINDINGS: Study Quality: The [...] Dawson MD 03/15/2025 8:38:38 AM CDT us Erinn Dawson MD [facility] US PROCEDURES Final Re sult * (ABNORMAL) Pulmonary Function Test - (01/31/2025 8:55 AM CDT) FVC POST 2.17 1.99 - 3.67 L [facility] FEV1 POST 1.63 1.51 - 2.73 L [facility] [id number] 75.15 62.77 - 89.35 % [facility] BQX68-53% POST 1.24 0.73 - 3.14 L/s [facility] PEF POST 4.85 4.32 - 7.28 L/s [facility] DLCOc SB 11.69(A) 15.77 - 27.23 ml/(min*mm Hg) [facility] DLCO/VA PRE 3.20 2.75 - 5.41 ml/(min*mm Hg*L) [facility] VA 3.65(A) 5.12 - 5.12 L [facility] TLC PRE 4.22(A) 4.29 - 6.26 L [facility] VC PRE 2.19 1.99 - 3.37 L [facility] IC PRE 1.88(A) 2.12 - 2.12 L [facility] FRC PL PRE 2.34 2.01 - 3.65 L [facility] ERV PRE 0.32(A) 0.57 - 0.57 L [facility] RV PRE 2.02 1.69 - 2.84 L [facility] VTG 2.47 L [facility] RAW PRE 6.10(A) 3.06 - 3.06 cmH2O*s/L [facility] FVC PRE 2.17 1.99 - 3.67 L [facility] FEV1 PRE 1.62 1.51 - 2.73 L [facility] [id number] 74.70 62.77 - 89.35 % [facility] BQI59-87% PRE 1.22 0.73 - 3.14 L/s [facility] PEF PRE 4.45 4.32 - 7.28 L/s [facility] Anatomical Region Laterality Modality PFT 01/31/2025 7:57 AM CDT Narrative 01/31/2025 11:51 AM CDT Normal spirometry without obstruction. There is no significant improvement post-bronchodilator therapy. Lung volumes are within normal limits. DLCO is reduced compatible with diffusion impairment. Findings can be seen with emphysema or other pulmonary vascular or pulmonary parenchymal process. Suggest clinical correlation. Electronically signed by Musa Rodriguez MD, [facility] Pulmonary and Critical Care Medicine [facility] Evan Watkins MD PFT ORDERABLES Final Resul t * Lipid panel (01/26/2025 1:34 PM CDT) Blood Historical Provider LAB BLOOD ORDERABLES Maeve l Result * Lipid panel (01/25/2025) Pathologist [facility] SCRIBED Cholesterol, Total 158 l - h EXTERNAL LAB SCRIBED HDL 39 l - h EXTERNAL LAB SCRIBED LDL 84 l - h EXTERNAL LAB SCRIBED Triglycerides 195 l - h EXTERNAL LAB Blood 01/25/2025 Result [facility] Evan Watkins MD LAB BLOOD ORDERABLES Final Result EXTERNAL LAB * (ABNORMAL) eGFR (12/29/2024 8:36 AM [facility]) eGFR 22(L) >=60 mL/min/1. 73 m2 Comment: [...] last reviewed 2021. Blood 12/29/2024 8:36 AM [facility] 12/29/2024 8:39 AM [facility] us Erinn Dawson MD LAB BLOOD ORDERABLES Final Result [facility] [address] [facility] Department [place] [address] from Last 3 Months or Most Recently Relevant to Health Maintenance
--- OUTSIDE RECORDS SUMMARY | 2025-04-24 13:43 | XMS_ITS ---
Author Name Jill, Clinic Address [address] [place] [id number] Phone [phone] [facility] e, NA DOCUMENT DISCLAIMER Multiple document versions may exist, please be sure you review the latest version. The information in the [facility] Continuity of Care Document represents a summary of certain health and medical information. It may not contain the complete medical history for the patient and should be independently verified. The represented time in the document is Eastern Time. PROBLEMS Problem Code Status Onset Date Pruritus, unspecified L29.9 Active March 262024 Other fluid overload E87.79 Active 2024 Bacteremia R78.81 Active August 15 Paroxysmal atrial fibrillation I48.0 Active July 25, 2024 Type 2 diabetes mellitus without complications E11.9 Active October 23, 2023 Type 2 diabetes mellitus wit h diabetic chronic kidney disease E11.22 Active June 10, 2023 Vitamin D deficiency, unspecified E55.9 Active April 13, 2023 Hyperlipidemia, unspecified E78.5 Active April 13, 2023 Hypothyroidism, unspecified E03.9 Active April 13, 2023 Encounter for adequacy testing for hemodialysis Z49.31 Active September 02, 2022 Encounter for immunization Z23 Active S derek 2021 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 Active July 04, 2022 Unspecified protein-calorie malnutrition E46 Active June 11, 2022 Chronic atrial fibrillation, unspecified I48.20 Active June 09, 2022 Nausea R11.0 Active April 18, 2022 Iron deficiency anemia, unspecified D50.9 Activ e April 11, 2022 Secondary hyperparathyroidism of renal origin N25.81 Active April 11, 2022 Shortness of breath R06.02 Active April 11, 2022 Anemia in chronic kidney disease D63.1 Active April 11, 2022 End stage renal disease N18.6 Active April 11, 2022 Fever, unspecified R50.9 Active April 11, 2022 Anaphylactic reaction due to adverse effect of correct drug or medicament properly administered, initial encounter T88.6XXA Active April 11, 2022 Pain, unspecified R52 Active April 11 Allergy, unspecified, sequela T78.40XS Active April 11, 2022 ALLERGIES AND ADVERSE REACTIONS No Known Allergies SOCIAL HISTORY Tobacco Use Status Tobacco Type Former smoker Cigarettes Caregiver Characteristics No Information Available Characteristics of Home environment No Information Available Gender and Sex Information Gender Identity Sexual Orientation Female Heterosexual MEDICATIONS Prescribed Medications for Dialysis Treatments Medication Instructions Dosage Route Start Date End Date Status Acetaminophen PRN greater than or equal to 100 F 650 mg Oral April 14, 2025 April 13, 2026 Active Acetaminophen PRN every 4 hours 650 mg Oral April 14, 2025 April 13, 2026 Active Diphenhydramine During Dialysis, PRN itching 25 mg Intravenous April 07, 2025 April 06, 2026 Active Doxercalciferol (Hectorol) During Dialysis, 3X Week 1 mcg Intravenous - push April 19, 2025 April 18, 2026 Active Ondansetron HCl (Zofran) During Dialysis, PRN nausea 4 mg Intravenous March 17, 2025 March 16, 2026 Active Iron Sucrose (Venofer) During Dialysis, 1X Week 50 mg Intravenous - push February 20, 2025 February 19, 2026 Discontinued Home Medications Medication Instructions Dosage Route Start Date End Date [facility] us amiodarone 100 mg Take by mouth once a day 1 tablet ORAL May 22, 2023 Active atorvastatin 40 mg Take by mouth at bedtime as directed 1 tablet ORAL April 21, 2022 Active Eliquis 2.5 mg Take by mouth twice a day 1 mg ORAL March 18, 2024 Active furosemide 80 mg Take by mouth twice a day 1 tablet ORAL September 03, 2022 Active levothyroxine 75 mcg Take by mouth once a day 1 tablet ORAL April 21, 2022 Active midodrine 10 mg Take by mouth as directed 1 tablet ORAL September 03, 2022 Active VITAL SIGNS Post-Treatment Vital Signs Vital Sign Value Date / Time Blood Pressure-sitting 120/70 mmHg April 21, 2025 05:52 AM Blood Pressure-standing 110/74 mmHg April 21, 2025 05:52 AM Heart Rate 72 beats per minute April 21 05:52 AM Respiratory Rate 18 breaths per minute April 21, 2025 05:52 AM Temperature 96.8 deg. F April 21, 2025 05 :52 AM Weight Vital Sign Value Date / Time Estimated Dry Weight 89.2 kg April 03 11:59 PM Pre-Dialysis 93.00 kg April 21, 2025 05 :52 AM Post-Dialysis 89.60 kg April 21, 2025 05 :52 AM Other Other Value Date / Time Height 170.18 cm April 16, 2022 12 :00 AM Body Mass Index 30.87 kg/m2 April 20, 2025 01 :27 PM [facility] CONCERNS Tuberculosis Testing TST Date Administered TST Date Read TST Result 04/14/2022 04/16/2022 Negative (<5) mm LAB RESULTS Hematology Result Type Result Value Relevant Referen ce Range Interpretation Date Folate, Serum 15.0 ng/mL No Reference Ran ge Provided - May 11, 2024 Neutrophils 68.6 % 40.0 - 75.0 % - October WBC (No Diff) 5.34 1000/mcL 4.80 - 10.80 1000/mcL - November 09, 2024 Platelets 288 1000/mcL 130 - 400 1000/mcL - William buster 2024 Reticulocyte 4.22 % 0.80 - 2.10 % High October 262024 Ferritin 477 ng/mL 10 - 291 ng/mL High October UIBC/TIBC 206 mcg/dL 155 - 355 mcg/dL - November 09, 2024 TIBC (Calc) 291 mcg/dL 185 - 515 mcg/dL - November 09, 2024 Transferrin Sat. (Calc) 29 % 20 - 55 % - November 09, 2024 TIBC (Calc) 265 mcg/dL 185 - 515 mcg/dL - ua2024 UIBC/TIBC 158 mcg/dL 155 - 355 mcg/dL - December 16, 2024 Transferrin Sat. (Calc) 40 % 20 - 55 % - December 16 Ferritin 426 ng/mL 10 - 291 ng/mL High November 272024 WBC (No Diff) 5.60 1000/mcL 4.80 - 10.80 1000/mcL - January 11, 2025 Platelets 276 1000/mcL 130 - 400 1000/mcL - Paul h 2024 Reticulocyte 2.94 % 0.80 - 2.10 % High January 11, 2025 Transferrin Sat. (Calc) 21 % 20 - 55 % - January 11, 2025 Neutrophils 72.0 % 40.0 - 75.0 % - January 11, 2025 Ferritin 319 ng/mL 10 - 291 ng/mL High January 11, 2025 UIBC/TIBC 212 mcg/dL 155 - 355 mcg/dL - December TIBC (Calc) 269 mcg/dL 185 - 515 mcg/dL - December 242024 Hemoglobin x 3 34.8 % 36.0 - 48.0 % Low January Hemoglobin x 3 33.3 % 36.0 - 48.0 % Low January TIBC (Calc) 281 mcg/dL 185 - 515 mcg/dL - January 242024 Transferrin Sat. (Calc) 30 % 20 - 55 % - February 08, 2025 Iron 83 mcg/dL 30 - 160 mcg/dL - February 08, 2025 UIBC/TIBC 198 mcg/dL 155 - 355 mcg/dL - January Platelets 353 1000/mcL 130 - 400 1000/mcL - Apri l 2024 Hemoglobin x 3 33 % 36.0 - 48.0 % Low January 242024 Reticulocyte 2.55 % 0.80 - 2.10 % High February 08, 2025 RDW 13.6 % 11.5 - 14.5 % - February 08 025 Ferritin 277 ng/mL 10 - 291 ng/mL - February 08, 2025 Neutrophils 73.1 % 40.0 - 75.0 % - February 08, 2025 Lymphocytes 15.4 % 19.0 - 48.0 % Low February 08, 2025 WBC (No Diff) 5.83 1000/mcL 4.80 - 10.80 1000/mcL - February 08, 2025 Eosinophil 2.3 % 0.0 - 7.0 % - February 08 5 Monocytes 5.8 % 3.0 - 10.0 % - February 08 25 ISABEL 2.8 % 0.0 - 4.0 % - February 08 5 Basophils 0.6 % 0.0 - 1.5 % - February 08 5 MCHC 33.0 g/dL 30.0 - 36.0 g/dL - January MCH 31.4 pg 27.0 - 31.0 pg High February 08, 2025 Retic HGB (CHr) 34.7 pg 25.4 - 31.8 pg High February 13, 2025 Retic HGB (CHr) 35.1 pg 25.4 - 31.8 pg High February 15, 2025 Hemoglobin x 3 32.4 % 36.0 - 48.0 % Low January 252024 Hemoglobin x 3 32.4 % 36.0 - 48.0 % Low January 262024 Hemoglobin x 3 32.1 % 36.0 - 48.0 % Low March 01, 2025 Hemoglobin x 3 34.2 % 36.0 - 48.0 % Low March 08, 2025 UIBC/TIBC 165 mcg/dL 155 - 355 mcg/dL - March 15, 2025 TIBC (Calc) 236 mcg/dL 185 - 515 mcg/dL - March 15, 2025 Transferrin Sat. (Calc) 30 % 20 - 55 % - March 15, 2025 Iron 71 mcg/dL 30 - 160 mcg/dL - March 15 Platelets 357 1000/mcL 130 - 400 1000/mcL - March 15, 2025 Hemoglobin x 3 34.8 % 36.0 - 48.0 % Low March 15, 2025 RDW 14.5 % 11.5 - 14.5 % - March 15 MCHC 32.7 g/dL 30.0 - 36.0 g/dL - March 15, 2025 Reticulocyte 2.29 % 0.80 - 2.10 % High March 15 025 ISABEL 1.8 % 0.0 - 4.0 % - March 15, 2025 Basophils 0.4 % 0.0 - 1.5 % - March 15, 2025 Eosinophil 3.0 % 0.0 - 7.0 % - March 15, 2025 Monocytes 5.3 % 3.0 - 10.0 % - March 15, 2025 Lymphocytes 18.2 % 19.0 - 48.0 % Low March 15 25 Neutrophils 71.2 % 40.0 - 75.0 % - March 15 25 MCH 32.1 pg 27.0 - 31.0 pg High March 15 WBC (No Diff) 5.40 1000/mcL 4.80 - 10.80 1000/mcL - March 15, 2025 Ferritin 345 ng/mL 10 - 291 ng/mL High March 15 25 Retic HGB (CHr) 33.7 pg 25.4 - 31.8 pg High February 242024 Hemoglobin x 3 36.3 % 36.0 - 48.0 % - March 22, 2025 Hemoglobin x 3 33.6 % 36.0 - 48.0 % Low March HGB 11.2 g/dL 12.0 - 16.0 g/dL Low March 29, 2025 HGB 12.3 g/dL 12.0 - 16.0 g/dL - April 05, 2025 Hemoglobin x 3 36.9 % 36.0 - 48.0 % - March MCH 31.4 pg 27.0 - 31.0 pg High April 12 RBC 4.02 mill/mcL 4.20 - 5.40 mill/mcL Low April 12, 2025 HCT 39.8 % 37.0 - 47.0 % - April 12 25 ISABEL 1.9 % 0.0 - 4.0 % - April 12, 2025 WBC (No Diff) 6.49 1000/mcL 4.80 - 10.80 1000/mcL - April 12, 2025 Basophils 0.7 % 0.0 - 1.5 % - April 12, 2025 HGB 12.6 g/dL 12.0 - 16.0 g/dL - April 12, 2025 MCHC 31.7 g/dL 30.0 - 36.0 g/dL - April 12, 2025 RDW 13.5 % 11.5 - 14.5 % - April 12 Reticulocyte 2.11 % 0.80 - 2.10 % High April 12, 2025 Ferritin 251 ng/mL 10 - 291 ng/mL - April 12 Hemoglobin x 3 37.8 % 36.0 - 48.0 % - March Platelets 359 1000/mcL 130 - 400 1000/mcL - April 12, 2025 Transferrin Sat. (Calc) 37 % 20 - 55 % - April 12, 2025 Iron 92 mcg/dL 30 - 160 mcg/dL - April 12, 2025 TIBC (Calc) 246 mcg/dL 185 - 515 mcg/dL - March UIBC/TIBC 154 mcg/dL 155 - 355 mcg/dL Low April 12, 2025 Monocytes 6.8 % 3.0 - 10.0 % - April 12 Eosinophil 1.7 % 0.0 - 7.0 % - April 12, 2025 Neutrophils 67.8 % 40.0 - 75.0 % - April 12 Lymphocytes 21.2 % 19.0 - 48.0 % - April 12 Hemoglobin x 3 35.4 % 36.0 - 48.0 % Low March HGB 11.8 g/dL 12.0 - 16.0 g/dL Low April 19, 2025 Metabolic/Renal Result Type Result Value Relevant Referen ce Range Interpretation Date Hemoglobin A1c 5.9 % 4.8 - 5.9 % - October 262024 BUN 34 mg/dL 6 - 19 mg/dL High February 01 BUN, Post 7 mg/dL 6 - 19 mg/dL - February 01 URR, Calc 79 % 65 - 80 % - February 01, 2025 Chloride 102 mEq/L 96 - 108 mEq/L - February 08, 2025 Bicarbonate 16 mEq/L 22 - 29 mEq/L Low February 08, 2025 Sodium 135 mEq/L 136 - 145 mEq/L Low February 08, 2025 Potassium 4.0 mEq/L 3.5 - 5.1 mEq/L - February 08, 2025 Hemoglobin A1c 5.9 % 4.8 - 5.9 % - February 08, 2025 Creatinine, Serum 3.00 mg/dL 0.60 - 1.30 mg/dL High February 08, 2025 URR, Calc 78 % 65 - 80 % - March 01, 2025 BUN 27 mg/dL 6 - 19 mg/dL High March 01, 2025 BUN, Post 6 mg/dL 6 - 19 mg/dL - March 01, 2025 Potassium 3.2 mEq/L 3.5 - 5.1 mEq/L Low March 15 Chloride 97 mEq/L 96 - 108 mEq/L - March 15 Sodium 136 mEq/L 136 - 145 mEq/L - March 15 Bicarbonate 24 mEq/L 22 - 29 mEq/L - March 15 Creatinine, Serum 2.59 mg/dL 0.60 - 1.30 mg/dL High March 15, 2025 BUN, Post 6 mg/dL 6 - 19 mg/dL - March 29 URR, Calc 76 % 65 - 80 % - March 29, 2025 BUN 25 mg/dL 6 - 19 mg/dL High March 29 Sodium 133 mEq/L 136 - 145 mEq/L Low April 12, 2025 Creatinine, Serum 2.61 mg/dL 0.60 - 1.30 mg/dL High April 12, 2025 Chloride 98 mEq/L 96 - 108 mEq/L - April 12 Potassium 4.4 mEq/L 3.5 - 5.1 mEq/L - April 12, 2025 Bicarbonate 18 mEq/L 22 - 29 mEq/L Low April 12 HD Adequacy Result Type Result Value Relevant Referen ce Range Interpretation Date Krt/V 0.00 No Reference Ran ge Provided - November 02, 2024 Krt/V 0.00 No Reference Ran ge Provided - November 30, 2024 Krt/V 0.00 No Reference Ran ge Provided - December 28, 2024 wstdKt/V without residual 2.6 No Reference Range Provided - February 01, 2025 spKt/V (Daugirdas II) 1.84 No Reference Range Provided - February 01, 2025 wstdKt/V, residual 0.0 No Reference Range Provided - February 01, 2025 spKt/V Gotch 1.94 No Reference Ran ge Provided - February 01, 2025 eKt/V ([place]) 1.57 No Reference Range Provided - February 01, 2025 wstdKt/V 2.6 No Reference Ran ge Provided - February 01, 2025 Krt/V 0.00 No Reference Ran ge Provided - February 01, 2025 Krt/V 0.00 No Reference Ran ge Provided - March 01, 2025 wstdKt/V, residual 0.0 No Reference Range Provided - March 01, 2025 spKt/V (Daugirdas II) 1.75 No Reference Range Provided - March 01, 2025 wstdKt/V 2.6 No Reference Ran ge Provided - March 01, 2025 eKt/V ([place]) 1.50 No Reference Range Provided - March 01, 2025 spKt/V Gotch 1.85 No Reference Ran ge Provided - March 01, 2025 wstdKt/V without residual 2.6 No Reference Range Provided - March 01, 2025 spKt/V (Daugirdas II) 1.71 No Reference Range Provided - March 29, 2025 wstdKt/V without residual 2.5 No Reference Range Provided - March 29, 2025 wstdKt/V 2.5 No Reference Ran ge Provided - March 29, 2025 wstdKt/V, residual 0.0 No Reference Range Provided - March 29, 2025 eKt/V ([place]) 1.47 No Reference Range Provided - March 29, 2025 Krt/V 0.00 No Reference Ran ge Provided - March 29, 2025 spKt/V Gotch 1.86 No Reference Ran ge Provided - March 29, 2025 Bone/Mineral Result Type Result Value Relevant Referen ce Range Interpretation Date Magnesium 2.0 mg/dL 1.6 - 2.6 mg/dL - May 11, 2024 Vitamin D 25 Hydroxy 25.7 ng/mL 30.0 - 100.0 ng/mL Low May 11, 2024 Magnesium 2.0 mg/dL 1.6 - 2.6 mg/dL - July 272023 PTH-Intact, Plasma 114 pg/mL 16 - 80 pg/mL High Van uary 2024 Magnesium 2.0 mg/dL 1.6 - 2.6 mg/dL - October 262024 PTH-Intact, Plasma 147 pg/mL 16 - 80 pg/mL High Feb ruary 2024 PTH-Intact, Plasma 162 pg/mL 16 - 80 pg/mL High Mar 2024 Magnesium 2.2 mg/dL 1.6 - 2.6 mg/dL - February 08, 2025 Corrected Ca x P Product 43 0 - - February 08, 2025 Ca x P Product 44 0 - 54 - February 08, 2025 Alkaline Phosphatase 87 U/L 35 - 104 U/L - Ap ril 2024 Calcium, Total 8.7 mg/dL 8.4 - 10.2 mg/dL - Apri l 2024 Phosphorus 5.0 mg/dL 2.6 - 4.5 mg/dL High February 08, 2025 PTH-Intact, Plasma 190 pg/mL 16 - 80 pg/mL High Apr il 2024 PTH-Intact, Plasma 189 pg/mL 16 - 80 pg/mL High March 15, 2025 Phosphorus 3.5 mg/dL 2.6 - 4.5 mg/dL - March 15 025 Ca x P Product 32 0 - 54 - March 15 25 Calcium, Total 9.0 mg/dL 8.4 - 10.2 mg/dL - March 15, 2025 Corrected Ca x P Product 31 0 - 54 - March 15, 2025 Corrected Ca x P Product 36 0 - 54 - April 12, 2025 Ca x P Product 37 0 - 54 - April 12 025 Calcium, Total 8.7 mg/dL 8.4 - 10.2 mg/dL - April 12, 2025 Phosphorus 4.2 mg/dL 2.6 - 4.5 mg/dL - April 12, 2025 PTH-Intact, Plasma 239 pg/mL 16 - 80 pg/mL High Mar Liver/Nutrition Result Type Result Value Relevant Reference Range Interpre tation Date eNPCR 0.70 No Reference Ran ge Provided - February 01, 2025 Glucose 138 mg/dL 70 - 100 mg/dL High February 08, 2025 A/G Ratio 2.3 1.0 - 2.0 High February 08, 2025 Globulin (Calc) 1.8 g/dL 2.0 - 4.0 g/dL Low February 08, 2025 Total Protein 5.9 g/dL 6.0 - 8.5 g/dL Low January 242024 Albumin (BCG) 4.1 g/dL 3.5 - 5.2 g/dL - January 242024 eNPCR 0.58 No Reference Ran ge Provided - March 01, 2025 A/G Ratio 2.1 1.0 - 2.0 High March 15, 2025 Globulin (Calc) 2.0 g/dL 2.0 - 4.0 g/dL - February 242024 Glucose 181 mg/dL 70 - 100 mg/dL High March 15 25 Total Protein 6.1 g/dL 6.0 - 8.5 g/dL - March 15, 2025 Albumin (BCG) 4.1 g/dL 3.5 - 5.2 g/dL - March 15, 2025 eNPCR 0.56 No Reference Ran ge Provided - March 29, 2025 Glucose 116 mg/dL 70 - 100 mg/dL High April 12 025 Globulin (Calc) 2.1 g/dL 2.0 - 4.0 g/dL - April 12, 2025 A/G Ratio 2.0 1.0 - 2.0 - April 12, 2025 Total Protein 6.2 g/dL 6.0 - 8.5 g/dL - March Albumin (BCG) 4.1 g/dL 3.5 - 5.2 g/dL - March Lipid Result Type Result Value Relevant Referen ce Range Interpretation Date Cholesterol HDL Ratio 4.5 0.0 - 4.5 - Jan LDL, (Calculated) 84 mg/dL 0 - 99 mg/dL - January 25, 2025 VLDL (Calculated) 39 mg/dL 10 - 30 mg/dL High 2024 HDL 35 mg/dL No Reference Ran ge Provided - January 25, 2025 Triglycerides 195 mg/dL 0 - 149 mg/dL High January Cholesterol, Total 158 mg/dL 0 - 199 mg/dL - Jan Immunochemistry Result Type Result Value Relevant Reference Range Interpre tation Date HCV s/co ratio < 0.02 0.00 - 0.79 - May 11, 2024 Endocrinology/Thyroid Result Type Result Value Relevant Referen ce Range Interpretation Date TSH 3rd Generation 0.648 mIU/L 0.300 - 3.000 mIU/L - July 27, 2024 Free T4 1.92 ng/dL 0.89 - 1.76 ng/dL High July 27, 2024 T3 0.60 ng/mL 0.60 - 1.81 ng/mL - July 27, 2024 TSH 3rd Generation 0.610 mIU/L 0.300 - 3.000 mIU/L - October 05, 2024 Free T4 1.61 ng/dL 0.89 - 1.76 ng/dL - [facility] 2023 TSH 3rd Generation 0.330 mIU/L 0.300 - 3.000 mIU/L - January 25, 2025 Trace Elements Result Type Result Value Relevant Reference Range Interpre tation Date Aluminum < 5 mcg/L 0 - 10 mcg/L - May 11 Aluminum < 5 mcg/L 0 - 10 mcg/L - November 09, 2024 Infectious Diseases Result Type Result Value Relevant Referen ce Range Interpretation Date HCV Ab (anti-HCV) Nonreactive No Reference R christopher Provided - May 11, 2024 Hep B Surface Ag (HBsAg) Negative No Reference Range Provided - May 11, 2024 Hep B Surface Ab (anti-HBs) 49 mIU/mL No Reference Range Provided - May 11, 2024 DIALYSIS PRESCRIPTION Conventional Hemodialysis Data Element Value Order Date/Time April 03, 2025 Frequency 3X Week Treatment Days MonWedFri Dialyzer 180NRe Optiflux Treatment Time (Total Minutes) 210 min Blood Flow Rate (mL/min) 450 mL/min Dialysate Flow Rate Manual 800 Estimated Dry Weight 89.2 kg Dialysate Concentrate 3.0 K, 3.0 Ca, 1.0 Mg, 100 Dextrose (G3301) Sodium (mEq/L) 138 mEq/L Bicarb Machine Setting (mEq/L) 35 mEq/L Dialysis Access Hemodialysis-AV [place] t-Synthetic - Hagerman Acuseal, Left Upper Arm, Brachial Artery to Cephalic Vein Access Placed on August 19, 2022 Arterial Needle Size 15g1 Venous Needle Size 15g1 IMMUNIZATIONS Vaccine Date Dose Route Status COMIRNATY - COVID-19 Vaccine ([place]) August 28, 2023 0.3 mL Intramuscular Completed Flu Vaccine - Flublok Quadrivalent August 05, 2023 0.5 mL Intramuscular Completed PREVNAR 20 August 15, 2022 0.5 mL Intramuscular Compl eted Moderna COVID-19 Vaccine, Bi valent, Booster August 01, 2022 0.5 mL Intramuscular Completed TRANSPLANT WAITLIST STATUS No Information on Transplant Waitlist Status ADVANCE DIRECTIVES Directive Description Ordered By Effective Date Resuscitation status Full Code [place] Mar 262024 DIALYSIS TREATMENTS Conventional Hemodialysis Date Pre-Treatment Vitals Post-Treatment Trinity ls Duration (hr) BFR (mL/min) Dialysate Dialyzer Dialysis Access Meds Admin April 17, 2025 Weight 92.90 kg Weight 89.90 kg 03:27:00 390 3.0 K, 3.0 Ca, 1.0 Mg, 100 Dextrose (G3301) 180nre Optifl ux Blood Pressure-sitting 112/43 mmHg Blood Pressure-sit ting 96/57 mmHg Heart Rate 78 beats per minute Blood Pressure-standi ng 100/56 mmHg Respiratory Rate 18 breaths per minute Heart Rate 99 beats per minute Temperature 97.0 deg. F Respiratory Rate 18 breaths per minute - - Temperature 97.0 deg. F April 19, 2025 Weight 92.40 kg Weight 89.70 kg 03:30:00 460 3.0 K, 3.0 Ca, 1.0 Mg, 100 Dextrose (G3301) 180nre Optiflux Hemodialysis-AV [place]-Synthetic - [place] Acuseal, Left Upper Arm, Brachial Artery to Cephalic Vein Access Placed on August 19, 2022 Acetaminophen; 650mg,Oral Doxercalciferol (Hectorol); 1mcg,Intravenous - push Blood Pressure-sitting 109/62 mmHg Blood Pressure-sit ting 135/72 mmHg Heart Rate 66 beats per minute Blood Pressure-standi ng 155/76 mmHg Respiratory Rate 18 breaths per minute Heart Rate 64 beats per minute Temperature 97.0 deg. F Respiratory Rate 18 breaths per minute - - Temperature 97.0 deg. F April 21, 2025 Weight 93.00 kg Weight 89.60 kg 03:29:00 460 3.0 K, 3.0 Ca, 1.0 Mg, 100 Dextrose (G3301) 180nre Optiflux Hemodialysis-AV Graft-Synthetic - [place]erman Acuseal, Left Upper Arm, Brachial Artery to Cephalic Vein Access Placed on August 19, 2022 Doxercalciferol (Hectorol); 1mcg,Intravenous - push Ondansetron HCl (Zofran); 4mg,Intravenous Blood Pressure-sitting 139/71 mmHg Blood Pressure-sit ting 120/70 mmHg Heart Rate 67 beats per minute Blood Pressure-standi ng 110/74 mmHg Respiratory Rate 18 breaths per minute Heart Rate 72 beats per minute Temperature 98.7 deg. F Respiratory Rate 18 breaths per minute - - Temperature 96.8 deg. F
--- OUTSIDE RECORDS SUMMARY | 2025-04-24 13:43 | XMS_ITS | Encounter Summary ---
Author Organization [facility] Healthcare Address [address] [place] [id number] Care Team Providers Care Superintendent Geophysical Laboratory Name Role Phone Rajendra Dawson MD Unavailable [phone] Lauren León MD Primary Care Provider + No, Physician Primary Care Provider [phone] Encounter Details Date Type Department Care Team (Late st Contact Info) Description 06/22/2024 Telephone [facility] at [facility] [address] [place] [address] [place] [address] [place] [address] [address] [place] [address] Social History Tobacco Use Types Packs/Day Years Used Date Smoking Tobacco: Former Cigarettes 0.8 40 1 210 - 2000 Smokeless Tobacco: Never AUDIT-C Answer [...] making you feel afraid or unsafe? Denies 12/01/2023 Comments No Sex and Gender Information Value Date Recorded Sex Assigned at Not on file Legal Sex Female 10:04 AM CDT Gender Identity Female 05/02/2022 10:25 AM CDT Sexual Orientation Not on file documented as of this encounter Plan of Treatment Not on file documented as of this encounter Visit Diagnoses Not on filedocumented in this encounter Care Teams Superintendent Geophysical Laboratory Relationship Specialty Start Date End Date Lauren León MD [address] [place] [address] PCP - General Family Medicine 11/13/22 12/27/24 No, Physician PCP - General 12/28/24 Rajendra Dawson MD [address] [place] [address] Surgeon Surgery 08/19/22 documented as of this encounter
--- OUTSIDE RECORDS SUMMARY | 2025-04-24 13:43 | XMS_ITS | Encounter Summary ---
Author Organization [facility] Healthcare Address [address] [place] [address] Care Team Providers Care Washing Machine Repairer Name Role Phone Law Robledo MD Primary Care Provider [phone] Antelmo Michele MD Primary Care Provider [phone] Rajendra Dawson MD Unavailable [phone] Lauren León MD Primary Care Provider + No, Physician Primary Care Provider [phone] Encounter Details Date Type Department Care Team (Late st Contact Info) Description 05/21/2022 Telephone [facility] Access Center at [facility] [address] [place] [address] Rajendra Dawson MD [address] [place] [address] [address] [id number] [place], [place] [id number] Social History Tobacco Use Types Packs/Day Years Used Date Smoking Tobacco: Never Assessed AUDIT-C Answer Date Recorded Q1: How often do you have a drink containing alcohol? Never 05/23/2022 Q2: How many drinks containi ng alcohol do you have on a typical day when you are drinking? Patient does not drink Q3: How often do you have si x or more drinks on one occasion? Never 05/23/2022 Comments Unknown Sex and Gender Information Value Date Recorded Sex Assigned at Not on file Legal Sex Female 10:04 AM CDT Gender Identity Female 05/02/2022 10:25 AM CDT Sexual Orientation Not on file documented as of this encounter Functional Status * Audit-C Score Answer Date of Assessment Author 0 05/23/2022 1:35 PM CDT Ami Hurtado RN * Question Answer Date of Assessment Author Q1: How often do you have a drink containing alcohol? Never 05/23/2022 1:35 PM GREGORT Ami Hurtado RN Q2: How many drinks containing alcohol do you have on a typical day when you are drinking? Patient does not drink 05/23/2022 1:35 PM CDT Ami Hurtado RN Q3: How often do you have six or more drinks on one occasion? Never 05/23/2022 1:35 PM GREGORT Ami Hurtado RN documented as of this encounter Plan of Treatment Not on file documented as of this encounter Visit Diagnoses Not on filedocumented in this encounter Care Teams Washing Machine Repairer Relationship Specialty Start Date End Date Law Robledo MD [address] [place] [address] PCP - General Internal Medicine 05/08/22 08/14/22 Antelmo Michele MD [address] [place] [address] PCP - General Internal Medicine 08/19/22 11/12/22 Lauren León MD [address] [place] [address] PCP - General Family Medicine 11/13/22 12/27/24 No, Physician PCP - General 12/28/24 Rajendra Dawson MD [address] [place] [address] Surgeon Surgery 08/19/22 documented as of this encounter
--- OUTSIDE RECORDS SUMMARY | 2025-04-24 13:43 | XMS_ITS | Encounter Summary ---
Author Organization [facility] Healthcare Address [address] [place] [address] Care Team Providers Care Service Bar Cashier Name Role Phone Antelmo Michele MD Primary Care Provider [phone] Rajendra Dawson MD Unavailable [phone] Lauren León MD Primary Care Provider + No, Physician Primary Care Provider [phone] Encounter Details Date Type Department Care Team (Late st Contact Info) Description 10/16/2022 Telephone [facility] Access Center at [facility] [address] [facility] [address] [place] [address] Param Dawson MD [address] [place] [address] [address] [place], [place] [id number] Social History Tobacco Use Types Packs/Day Years Used Date Smoking Tobacco: Former Cigarettes 0.8 40 1 960 - 2000 Smokeless Tobacco: Never AUDIT-C Answer Date Recorded Q1: How often do you have a drink containing alc ohol? 2-3 times a week 08/19/2022 Q2: How many drinks containi ng alcohol do you have on a typical day when you are drinking? 1 or 2 08/19/2022 Q3: How often do you have si x or more drinks on one occasion? Never 08/19/2022 Comments No Sex and Gender Information Value Date Recorded Sex Assigned at Not on file Legal Sex Female 10:04 AM CDT Gender Identity Female 05/02/2022 10:25 AM CDT Sexual Orientation Not on file documented as of this encounter Plan of Treatment Not on file documented as of this encounter Visit Diagnoses Not on filedocumented in this encounter Care Teams Service Bar Cashier Relationship Specialty Start Date End Date Antelmo Michele MD PCP - General Internal Medicine 08/19/22 11/12/22 Lauren León MD [address] [place] [address] PCP - General Family Medicine 11/13/22 12/27/24 No, Physician PCP - General 12/28/24 Rajendra Dawson MD [address] [facility] [address] [facility] [address] [place] [address] Surgeon Surgery 08/19/22 documented as of this encounter
--- OUTSIDE RECORDS SUMMARY | 2025-04-24 13:43 | XMS_ITS | Encounter Summary ---
Author Organization [facility] Healthcare Address [address] [place] [address] Care Team Providers Care Subsorter Name Role Phone Rajendra Dawson MD Unavailable [phone] Lauren León MD Primary Care Provider + No, Physician Primary Care Provider [phone] Encounter Details Date Type Department Care Team (Late st Contact Info) Description 11/06/2023 Telephone [facility] [address] [facility] [address] [place] [address] Rajendra Dawson MD [address] [place], [place] [address] [place] [id number] [place] [address] Social History Tobacco Use Types Packs/Day Years [...] Never 10/23/2022 Personal Safety Answer Date Recorded Getting School Help Needed Denies 10/14 Comments No Sex and Gender Information Value Date Recorded Sex Assigned at Not on file Legal Sex Female 10:04 AM CDT Gender Identity Female 05/02/2022 10:25 AM CDT Sexual Orientation Not on file documented as of this encounter Plan of Treatment Not on file documented as of this encounter Visit Diagnoses Not on filedocumented in this encounter Care Teams Subsorter Relationship Specialty Start Date End Date Lauren León MD [address] [place] [address] PCP - General Family Medicine 11/13/22 12/27/24 No, Physician PCP - General 12/28/24 Rajendra Dawson MD [address] [facility] [facility] [address] [place] [address] [place] [address] Surgeon Surgery 08/19/22 documented as of this encounter
--- OUTSIDE RECORDS SUMMARY | 2025-04-24 13:43 | XMS_ITS ---
Author Name Leeanna Conklin Address [address] [place] [address] Phone [phone] Organization [facility] e, NA DOCUMENT DISCLAIMER Multiple document versions may exist, please be sure you review the latest version. The information in the [facility] Progress Note Document represents a providers documented clinical note containing certain health and medical information. It may not contain the complete medical history for the patient and should be independently verified. The represented time in the document is Eastern Time PROVIDER ROUNDING NOTE BASIC HD PROVIDER?ROUNDING?NOTE?BASIC?HD Clinic:?[address] [place] [address]?[facility] Visit?date:?04/11/2022?00:00?Modality/setting:?IHD Francisca?Mira?-?Chart?#:?[id number] Method?of?Interaction:?Face?to?face Date?of?Interaction:?04/19/2025 ?-?Patient?is?stable ?-?Medications?and?labs?reviewed. Patient?issues?include: Late?entry,?Pt?denies?c/o?SOB?and?cramping?while?on&#16 0;dialysis.??Pt?access?patent, no?problems?noted?at?this?time.?Patient?has?no?questions?or?concerns?at?this time.?Pt?education?on?monitoring?of?fluid?gains?between tx's.??Tolerating dialysis?without?difficulty.?WCTM Prior?Treatment:?04/21/2025? Dialyzer:?180NRe?Optiflux? Dialysate:?3.0?K,?3.0 Ca,?1.0?Mg,?100?Dextrose?(G3301)? Prescribed?Time:?3:30? Actual?Time:?03:29? Avg?BFR:?460? Avg?DFR:?800? Wt?Gain?(kg):?3.30? EDW?(kg):?89.20? Home?Medications ?amiodarone?(amiodarone) 100?mg,?oral,?1?tablet?once?a?day ??atorvastatin?(atorvastatin) 40?mg,?oral,?1?tablet?at?bedtime ??Eliquis?(apixaban) 2.5?mg,?oral,?1?mg?twice?a?day ??furosemide?(furosemide) 80?mg,?oral,?1?tablet?twice?a?day ??levothyroxine?(levothyroxine) 75?mcg,?oral,?1?tablet?once?a?day ??midodrine?(midodrine) 10?mg,?oral,?1?tablet?as?directed [take?10mg?daily?as?needed?for?syst?B/P?<90] Leeanna?A?Rubin,?ELECTRICAL CONTACTS ADJUSTER END OF DOCUMENT
[2025-04-24 17:53] LABS: Basophils Percent Auto 0.6 % (0.2-1.2); Eosinophils Absolute Auto 0.2 K/mm3 (0-0.3); Eosinophils Percent Auto 3.7 % (0-4.4); Hematocrit 40.2 % (37.0-47.0); Hemoglobin 12.9 g/dL (12.0-15.0); Immature Granulocyte Absolute 0.03 K/mm3 (0.00-0.031); Immature Granulocyte Percent A 0.6 % (0-0.5); Lymphocytes Absolute Auto 1.48 K/mm3 (0.9-3.2); Lymphocytes Percent Auto 28.5 % (18.3-44.2); Mean Corpuscular HGB Conc 32.1 g/dl (32-36); Mean Corpuscular Hemoglobin 30.7 pg (26-34); Mean Corpuscular Volume 95.7 fl (80-100); Mean Platelet Volume 9.3 fl (7.4-10.4); Monocytes Absolute Auto 0.5 K/mm3 (0.1-0.6); Monocytes Percent Auto 10.4 % (2.6-8.5); Neutrophils Absolute Auto 2.9 K/mm3 (1.3-6.7); Neutrophils Percent Auto 56.2 % (45.5-73.1); Platelet Count Result 230 k/mm3 (150-375); Red Cell Distribution Width 14.5 % (11.5-14.5); White Blood Count 5.2 K/mm3 (4.5-10.0)
--- OUTSIDE RECORDS SUMMARY | 2025-04-24 18:01 | XMS_ITS | Encounter Summary ---
Author Organization [facility] Healthcare Address [address] [place] [address] Care Team Providers Care Nanotechnologist Name Role Phone Law Robledo MD Primary Care Provider [phone] Antelmo Michele MD Primary Care Provider [phone] Rajendra Dawson MD Unavailable [phone] Lauren León MD Primary Care Provider + No, Physician Primary Care Provider [phone] Encounter Details Date Type Department Care Team (Late st Contact Info) Description 08/13/2022 Telephone [facility] Dialysis Access Center at [facility] [address] [facility] [address] [place] [address] Rajendra Dawson MD [address] [place], [place] [address] [place] [address] [place] [address] Social History Tobacco Use Types [...] on filedocumented in this encounter Care Teams Nanotechnologist Relationship Specialty Start Date End Date Law Robledo MD [address] [place] [address] PCP - General Internal Medicine 05/08/22 08/14/22 Antelmo Michele MD [address] [place] [address] PCP - General Internal Medicine 08/19/22 11/12/22 Lauren León MD [address] [place] [address] [address] [place] [address] PCP - General Family Medicine 11/13/22 12/27/24 No, Physician PCP - General 12/28/24 Rajendra Dawson MD [address] [facility] [address] [place] [address] [place] [address] Surgeon Surgery 08/19/22 documented as of this encounter
--- OUTSIDE RECORDS SUMMARY | 2025-04-24 18:01 | XMS_ITS | Encounter Summary ---
Author Organization [facility] Healthcare Address [address] [place] [address] Care Team Providers Care Photocopier Technician Name Role Phone Rajendra Dawson MD Unavailable [phone] Lauren León MD Primary Care Provider + No, Physician Primary Care Provider [phone] Encounter Details Date Type Department Care Team (Late st Contact Info) Description 12/23/2024 Telephone [facility] at [facility] [address] [facility] [address] [place] [address] Rajendra Dawson MD [address] [place], [place] [address] [place] [address] [place] [address] Social History Tobacco Use Types Packs/Day Years [...] on filedocumented in this encounter Care Teams Photocopier Technician Relationship Specialty Start Date End Date Lauren León MD [address] [place] [address] PCP - General Family Medicine 11/13/22 12/27/24 No, Physician PCP - General 12/28/24 Rajendra Dawson MD [address] [facility] [address] [place] [address] [place] [address] Surgeon Surgery 08/19/22 documented as of this encounter
--- OUTSIDE RECORDS SUMMARY | 2025-04-24 18:01 | XMS_ITS | Encounter Summary ---
Author Organization [facility] Healthcare Address [address] [place] [address] Care Team Providers Care Hub Associate Name Role Phone Rajendra Dawson MD Unavailable [phone] Lauren León MD Primary Care Provider + No, Physician Primary Care Provider [phone] Encounter Details Date Type Department Care Team (Late st Contact Info) Description 06/22/2024 Telephone [facility] at [facility] [address] [facility] [address] [place] [address] [place] [address] [place] [address] [address] [place] [address] Social History Tobacco Use Types Packs/Day Years Used Date Smoking Tobacco: Former Cigarettes 0.8 40 1 920 - 2000 Smokeless Tobacco: Never AUDIT-C Answer [...] on filedocumented in this encounter Care Teams Hub Associate Relationship Specialty Start Date End Date Lauren León MD [address] [place] [address] PCP - General Family Medicine 11/13/22 12/27/24 No, Physician PCP - General 12/28/24 Rajendra Dawson MD [address] [facility] [address] [place] [address] [place] [address] Surgeon Surgery 08/19/22 documented as of this encounter
--- OUTSIDE RECORDS SUMMARY | 2025-04-24 18:01 | XMS_ITS | Encounter Summary ---
Author Organization [facility] Healthcare Address [address] [place] [address] Care Team Providers Care Chocolate Refining Roller Name Role Phone Rajendra Dawson MD Unavailable [phone] Lauren León MD Primary Care Provider + No, Physician Primary Care Provider [phone] Encounter Details Date Type Department Care Team (Late st Contact Info) Description 11/06/2023 Telephone [facility] at [facility] [address] [facility] [address] [place] [address] Rajendra Dawson MD [address] [place], [place] [address] [place] [address] [place] [address] Social History Tobacco Use Types Packs/Day Years [...] on filedocumented in this encounter Care Teams Chocolate Refining Roller Relationship Specialty Start Date End Date Lauren León MD [address] [place] [address] PCP - General Family Medicine 11/13/22 12/27/24 No, Physician PCP - General 12/28/24 Rajendra Dawson MD [address] [facility] [address] [place] [address] [place] [address] Surgeon Surgery 08/19/22 documented as of this encounter
--- OUTSIDE RECORDS SUMMARY | 2025-04-24 18:01 | XMS_ITS | Encounter Summary ---
Author Organization [facility] Healthcare Address [address] [place] [address] Care Team Providers Care Plastic Straightening Roll Operator Name Role Phone Antelmo Michele MD Primary Care Provider [phone] Rajendra Dawson MD Unavailable [phone] Lauren León MD Primary Care Provider + No, Physician Primary Care Provider [phone] Encounter Details Date Type Department Care Team (Late st Contact Info) Description 10/16/2022 Telephone [facility] at [facility] [address] [facility] [address] [place] [address] Param Dawson MD [address] [place] [address] [address] [place], [place] [id number] Social History Tobacco Use Types Packs/Day Years [...] on filedocumented in this encounter Care Teams Plastic Straightening Roll Operator Relationship Specialty Start Date End Date Antelmo Michele MD PCP - General Internal Medicine 08/19/22 11/12/22 Lauren León MD [address] [place] [address] PCP - General Family Medicine 11/13/22 12/27/24 No, Physician PCP - General 12/28/24 Rajendra Dawson MD [address] [facility] [address] [facility] [address] [place] [address] Surgeon Surgery 08/19/22 documented as of this encounter
--- OUTSIDE RECORDS SUMMARY | 2025-04-24 18:01 | XMS_ITS | Clinical Summary ---
Author Organization [facility] [employer] Address [address] [place] [address] Care Team Providers Care Family Welfare Social Work Professor Name Role Phone Antelmo Michele MD Primary Care Provider [phone] Source Comments [facility] [employer],non-owned Affiliates and Associated Physician Practices is amultiple site organization consisting of ambulatory clinics and hospital sitesin [place], [place], [place] and [place]. This disclosure is being madepursuant to the Care Everywhere program and may not contain all information available regarding this patient. Last updated 18.[employer] Allergies No known active allergies Medications * [...] on file Legal Sex Female 5:53 AM RACECOURSE BARRIER ATTENDANT Gender Identity Not on file Sexual Orientation [...] this topic Medical Devices Implanted Type Area Planning Technician Device Identifier Shelf Expiration Date Model / Serial / Lot Ivc Filter-02/29/20 22 Implanted:Qty : 1 on 02/28/2022 by Maxx Carvalho MD IVC Filter Right: Vena [employer] Thermoscan [facility] [facility] / [id number] / [id number] Description:IVC filter place d to RIJ by [...] Reactive Non Reactive 03/26/2022 4:43 PM CDT [facility] Blood BLOOD SPECIMEN / Unknown Venipuncture / Unknown 03/26/2022 3:33 PM CDT 03/26/2022 3:43 PM CDT Narrative [facility] - 03/26/2022 4:43 PM CDT Non Reactive - Antibodies to Hepatitis C virus (HCV) were not detected, result does not exclude early acute HCV infection. Percy Camp MD LAB - CHEMISTRY ORDERABLES Fin al Result Performing Organization Address City/State/[facility] Co de Phone Number [facility] [address] [place] [address] from Last 3 Months or [...] 4:46 PM 03/07/2022 5:01 AM Care Teams Family Welfare Social Work Professor Relationship Specialty Start Date End Date Antelmo Michele MD [address] [facility] [address] [place] [address] PCP - General 01/04/10
--- OUTSIDE RECORDS SUMMARY | 2025-04-24 18:01 | XMS_ITS | Clinical Summary ---
Author Organization [facility] Address [address] [place] [address] Care Team Providers Care Director Of Education And Training Name Role Phone Rajendra Dawson MD Unavailable [phone] No, Physician Primary Care Provider Allergies No known active allergies Medications midodrine [...] dialysis. Assessment & Plan (12/22/2024 3:30 PM SINKER WINDER): Symptomatic venous outflow stenosis. Will proceed with [...] to left axillary stent. Plan: Discussed with software test technician regarding elevated velocities. No concerned for stenosis in this area. -continue utilizing left brachial axillary AV graft for dialysis as per Nephrology. -patient follow-up in 3 months for re-evaluation with repeat AV duplex. Encouraged patient make a sooner appointment if there is any complications during dialysis. Assessment & Plan (11/05/2023 11:06 AM SINKER WINDER): Currently dialyzing through a left upper extremity [...] 05/08/2022 Assessment & Plan (11/05/2023 11:04 AM SINKER WINDER): Chronic uncontrolled continue as per PCP. Assessment & Plan (08/04/2023 10:16 AM CDT): Continue current medical management as per PCP Assessment & Plan (01/15/2023 1:05 PM CDT): Stable chronic diabetes being controlled with diet and medication. Continue current medical therapy. Assessment & Plan (10/14/2022 11:35 AM SINKER WINDER): Impression: Diabetes mellitus currently controlled with insulin. [...] metoprolol Assessment & Plan (11/05/2023 11:05 AM SINKER WINDER): Controlled continue as per PCP Assessment & Plan (08/04/2023 10:16 AM CDT): Metoprolol, amiodarone Assessment & Plan (04/16/2023 2:23 PM CDT): Metoprolol Assessment & Plan (01/15/2023 1:05 PM CDT): Stable chronic hypertension being controlled medications. Continue current medical therapy Assessment & Plan (10/14/2022 11:36 AM SINKER WINDER): Impression: Chronic stable hypertension, controlled medications. Blood [...] atorvastatin. Assessment & Plan (11/05/2023 11:05 AM SINKER WINDER): Continue Lipitor Assessment & Plan (08/04/2023 10:16 AM CDT): Lipitor Assessment & Plan (04/16/2023 2:23 PM CDT): Atorvastatin Assessment & Plan (10/14/2022 11:36 AM SINKER WINDER): Impression: Chronic hyperlipidemia, controlled with statin therapy. [...] scan. Assessment & Plan (10/14/2022 2:32 PM SINKER WINDER): Impression: Patient is being dialyzed through a [...] - 03/14/2025 11:59 PM CDT Hospital Encounter [facility] at [address] [address] ESRD (end stage renal disease) on dialysis (HCC) (Primary Dx); Other specified complication of vascular prosthetic devices, implants and grafts, initial encounter; Dyslipidemia; Essential hypertension Discharge Disposition: Discharge to home or self care 03/14/2025 7:34 AM CDT - 03/14/2025 11:59 PM CDT Hospital Encounter [facility] Medical Office Building [address] [place] [address] [address] [place] [address] Dependence on renal dialysis; End stage renal disease (HCC); Other specified complication of vascular prosthetic devices, implants and grafts, initial encounter Discharge Disposition: Discharge to home or self care 03/02/2025 Orders Only [facility] at [address] [place] [address] Rajendra Dawson MD Dependence on renal dialysis (Primary Dx); End stage renal disease (HCC); Other specified complication of vascular prosthetic devices, implants and grafts, initial encounter 02/20/2025 Telephone [facility] Cardiology [address] [place] [address] [phone] Evan Watkins MD 02/16/2025 Results Follow-Up [facility] Cardiology [address] [place] [phone] Evan Watkins MD Pulmonary Function Test - 02/01/2025 Results Follow-Up [facility] Cardiology [address] [place] [phone] Milena Alcala RN Lipid panel 01/31/2025 7:44 AM CDT - 01/31/2025 11:59 PM CDT Hospital Encounter [facility] Respiratory Therapy [address] [place] [address] PAF (paroxysmal atrial fibrillation) (HCC); Nonrheumatic aortic valve insufficiency Discharge Disposition: Discharge to home or self care 01/31/2025 Orders Only [facility] Cardiology [address] [facility] [address] [phone] Provider, MD Andressa from Last 3 Months Surgical History Surgery Date Site/Laterality Comments HYSTERECTOMY CATARACT EXTRACTION, BILATERAL Bilateral TUNNELED VENOUS CATHETER PLACEMENT 03/06/2022 Right RIJ permacath - Dr. Faria (removed 10/23/22 - Dr. Param Dawson) COLONOSCOPY years ago CARDIOVERSION 05/28/22 DIALYSIS [...] AVG - stent to AVG - Dr. Rajendra Dawson Medical devices from this surgery are [...] CDT Respiratory Rate 22 12/29/2024 11:30 AM SINKER WINDER Oxygen Saturation 99% 03/14/2025 8:26 AM CDT [...] history exists Medical Devices Implanted Type Area Coal Washer Tender Device Identifier Shelf Expiration Date Model / Serial / Lot [employer]l [employer] 4-7mm 45cm Stretch Peripheral Standard Aerologist Graft Vascular [id number] - [id number] - [id number] Implanted:Qty: 1 on 08/19/2022 by Rajendra Dawson MD at [facility] Left: Arm [employer] [id number] 05/11/2027 [id number] / [id number] / Bard Peripheral Vascular Stent Graft Endovascular Arteriovenous [id number] Covera [id number] - [id number] Implanted:Qty: 1 on 12/01/2023 by Rajendra Dawson MD at [facility] Bard Peripheral Vascular 06/19/2025 [id number] / / [id number] Bard Peripheral Vascular Stent Vasc 100mm 6mm 8fr Covera Str Arteriovenous Cover [id number] - [id number] Implanted:Qty: 1 on 12/29/2024 by Rajendra Dawson MD at [facility] Bard Peripheral Vascular 12/23/2025 [id number] / / [id number] Procedures Procedure Name Priority Date/Time Associated Diagnosis [...] valve insufficiency EGFR STAT 12/29/2024 8:36 AM SINKER WINDER from Last 3 Months or Most Recently Relevant to Health Maintenance Results * US Hemodialysis Access (03/14/2025 8:34 AM CDT) Anatomical Region Laterality Modality Vascular N/A Ultrasound 03/14/2025 7:53 AM CDT Narrative 03/15/2025 8:48 AM CDT Hemodialysis Access Duplex Report Patient Name: BREONNA ELMORE E : 1945 (79y 6m) Gender: F Study Date: 03/14/2025 07:53:21 AM Turbine Room Attendant: Yaneli Osman Provider: RAJENDRA DAWSON Provider: RAJENDRA [...] Vessel Velocity Lt Location Brach-Ax AVG Lt [place] Artery 139.00 cm/sec Lt Arterial Anast 635.00 cm/sec Lt Prx Graft 329.00 cm/sec Lt Mid Graft VF 775.00 mL/min Lt Venous Anast 190.00 cm/sec Lt [place] Vein 96 (AX V) 148(SCV) cm/sec LEFT STENT MEASUREMENTS: Vessel Velocity Location AVG Lt Stent Prx PSV 388.00 cm/sec Lt Stent Mid PSV 278.00 cm/sec Lt Stent Dst PSV 233.00 cm/sec Location 2 AX V Lt Stent 2 Prx PSV 231.00 cm/sec Lt Stent 2 Mid PSV 242.00 cm/sec Lt Stent 2 Dst PSV 221.00 cm/sec Lt Stent 2 Dst [place] PSV 163.00 cm/sec FINDINGS: Study Quality: The [...] Gender: F Study Date: 03/14/2025 07:53:21 AM Turbine Room Attendant: Yaneli Osman Order Provider: RAJENDRA DAWSON Ref [...] Vessel Velocity Lt Location Brach-Ax AVG Lt [place] Artery 139.00 cm/sec Lt Arterial Anast 635.00 cm/sec Lt Prx Graft 329.00 cm/sec Lt Mid Graft VF 775.00 mL/min Lt Venous Anast 190.00 cm/sec Lt [place] Vein 96 (AX V) 148(SCV) cm/sec LEFT STENT MEASUREMENTS: Vessel Velocity Location AVG Lt Stent Prx PSV 388.00 cm/sec Lt Stent Mid PSV 278.00 cm/sec Lt Stent Dst PSV 233.00 cm/sec Location 2 AX V Lt Stent 2 Prx PSV 231.00 cm/sec Lt Stent 2 Mid PSV 242.00 cm/sec Lt Stent 2 Dst PSV 221.00 cm/sec Lt Stent 2 Dst [place] PSV 163.00 cm/sec FINDINGS: Study Quality: The [...] 8:38:38 AM CDT us Rajendra Dawson MD [facility] [place] PROCEDURES Final Re sult * (ABNORMAL) Pulmonary Function Test - (01/31/2025 8:55 AM CDT) FVC POST 2.17 1.99 - 3.67 L [facility] FEV1 POST 1.63 1.51 - 2.73 L [facility] [id number] 75.15 62.77 - 89.35 % [facility] OMZ02-05% POST 1.24 0.73 - 3.14 L/s [facility] PEF POST 4.85 4.32 - 7.28 L/s [facility] DLCOc SB 11.69(A) 15.77 - 27.23 ml/(min*mm Hg) [facility] DLCO/VA PRE 3.20 2.75 - 5.41 ml/(min*mm Hg*L) [facility] VA 3.65(A) 5.12 - 5.12 L [facility] TLC PRE 4.22(A) 4.29 - 6.26 L [facility] VC PRE 2.19 1.99 - 3.37 L [facility] IC PRE 1.88(A) 2.12 - 2.12 L [facility] FRC PL PRE 2.34 2.01 - 3.65 L [facility] ERV PRE 0.32(A) 0.57 - 0.57 L [facility] RV PRE 2.02 1.69 - 2.84 L [facility] VTG 2.47 L [facility] RAW PRE 6.10(A) 3.06 - 3.06 cmH2O*s/L [facility] FVC PRE 2.17 1.99 - 3.67 L [facility] FEV1 PRE 1.62 1.51 - 2.73 L [facility] [id number] 74.70 62.77 - 89.35 % [facility] MKK00-56% PRE 1.22 0.73 - 3.14 L/s [facility] PEF PRE 4.45 4.32 - 7.28 L/s [facility] Anatomical Region Laterality Modality PFT 01/31/2025 7:57 AM CDT Narrative 01/31/2025 11:51 AM CDT Normal spirometry without obstruction. There is no significant improvement post-bronchodilator therapy. Lung volumes are within normal limits. DLCO is reduced compatible with diffusion impairment. Findings can be seen with emphysema or other pulmonary vascular or pulmonary parenchymal process. Suggest clinical correlation. Electronically signed by Musa Rodriguez MD, [facility] Pulmonary and Critical Care Medicine [facility] Evan Watkins MD PFT ORDERABLES Final Resul t * Lipid panel (01/26/2025 1:34 PM CDT) Blood [facility] LAB BLOOD ORDERABLES Maeve l Result * Lipid panel (01/25/2025) Pathologist [facility] SCRIBED Cholesterol, Total 158 l - h EXTERNAL LAB SCRIBED HDL 39 l - h EXTERNAL LAB SCRIBED LDL 84 l - h EXTERNAL LAB SCRIBED Triglycerides 195 l - h EXTERNAL LAB Blood 01/25/2025 Evan Watkins MD LAB BLOOD ORDERABLES Final Result EXTERNAL LAB * (ABNORMAL) eGFR (12/29/2024 8:36 AM SINKER WINDER) Pathologist [facility] eGFR 22(L) >=60 mL/min/1. 73 m2 Comment: [...] last reviewed 2021. Blood 12/29/2024 8:36 AM SINKER WINDER 12/29/2024 8:39 AM SINKER WINDER us Rajendra Dawson MD LAB BLOOD ORDERABLES Final Result Performing Organization Address City/State/[facility] Phone Number [facility] [address] [facility] Department [place] [address] from Last 3 Months or Most Recently Relevant to Health Maintenance Insurance [facility] MEDIC[facility] ADVANTAGE [facility] Address: [facility] [address] [place] [address] [facility] MEDIC[facility] ADVANTAGE Care Teams Director Of Education And Training Relationship Specialty Start Date End Date No, Physician PCP - General 12/28/24 Rajendra Dawson MD [address] [facility] [address] [place] [address] Surgeon Surgery 08/19/22
--- OUTSIDE RECORDS SUMMARY | 2025-04-24 18:01 | XMS_ITS | Referral Summary ---
Author Organization [facility] Address [address] [place] [address] Care Team Providers Care Product Assurance Engineer Name Role Phone Rajendra Dawson MD Unavailable [phone] No, Physician Primary Care Provider [phone] Encounters Date Type Department Care Team Description 03/14/2025 7:52 AM CDT - 03/14/2025 11:59 PM CDT Hospital Encounter [facility] at [address] [place], [place] [id number] ESRD (end stage renal disease) on dialysis (HCC) (Primary Dx); Other specified complication of vascular prosthetic devices, implants and grafts, initial encounter; Dyslipidemia; Essential hypertension Discharge Disposition: Discharge to home or self care 03/14/2025 7:34 AM CDT - 03/14/2025 11:59 PM CDT Hospital Encounter [facility] Medical Office Building [address] [place] [address] [address] [place] [address] Dependence on renal dialysis; End stage renal disease (HCC); Other specified complication of vascular prosthetic devices, implants and grafts, initial encounter Discharge Disposition: Discharge to home or self care 03/02/2025 Orders Only [facility] at [facility] [address] [place] [address] [address] [place] [address] Rajendra Dawson MD Dependence on renal dialysis (Primary Dx); End stage renal disease (HCC); Other specified complication of vascular prosthetic devices, implants and grafts, initial encounter 02/20/2025 Telephone [facility] Cardiology [address] [facility] [address] [phone] Evan Watkins MD 02/16/2025 Results Follow-Up [facility] Cardiology [address] [place] [phone] Evan Watkins MD Pulmonary Function Test - 02/01/2025 Results Follow-Up [facility] Cardiology [address] [place] [phone] Milena Alcala RN Lipid panel 01/31/2025 Orders Only [facility] Cardiology [address] [place] [phone] Andressa Portillo MD 01/31/2025 7:44 AM CDT - 01/31/2025 11:59 PM CDT Hospital Encounter [facility] Respiratory Therapy [address] [place] [address] PAF (paroxysmal atrial fibrillation) (HCC); Nonrheumatic aortic [...] dialysis. Assessment & Plan (12/22/2024 3:30 PM SINK MAKER): Symptomatic venous outflow stenosis. Will proceed with [...] to left axillary stent. Plan: Discussed with logistics technician regarding elevated velocities. No concerned for stenosis in this area. -continue utilizing left brachial axillary AV graft for dialysis as per Nephrology. -patient follow-up in 3 months for re-evaluation with repeat AV duplex. Encouraged patient make a sooner appointment if there is any complications during dialysis. Assessment & Plan (11/05/2023 11:06 AM SINK MAKER): Currently dialyzing through a left upper extremity [...] 05/08/2022 Assessment & Plan (11/05/2023 11:04 AM SINK MAKER): Chronic uncontrolled continue as per PCP. Assessment & Plan (08/04/2023 10:16 AM CDT): Continue current medical management as per PCP Assessment & Plan (01/15/2023 1:05 PM CDT): Stable chronic diabetes being controlled with diet and medication. Continue current medical therapy. Assessment & Plan (10/14/2022 11:35 AM SINK MAKER): Impression: Diabetes mellitus currently controlled with insulin. [...] metoprolol Assessment & Plan (11/05/2023 11:05 AM SINK MAKER): Controlled continue as per PCP Assessment & Plan (08/04/2023 10:16 AM CDT): Metoprolol, amiodarone Assessment & Plan (04/16/2023 2:23 PM CDT): Metoprolol Assessment & Plan (01/15/2023 1:05 PM CDT): Stable chronic hypertension being controlled medications. Continue current medical therapy Assessment & Plan (10/14/2022 11:36 AM SINK MAKER): Impression: Chronic stable hypertension, controlled medications. Blood [...] atorvastatin. Assessment & Plan (11/05/2023 11:05 AM SINK MAKER): Continue Lipitor Assessment & Plan (08/04/2023 10:16 AM CDT): Lipitor Assessment & Plan (04/16/2023 2:23 PM CDT): Atorvastatin Assessment & Plan (10/14/2022 11:36 AM SINK MAKER): Impression: Chronic hyperlipidemia, controlled with statin therapy. [...] scan. Assessment & Plan (10/14/2022 2:32 PM SINK MAKER): Impression: Patient is being dialyzed through a [...] CDT Respiratory Rate 22 12/29/2024 11:30 AM SINK MAKER Oxygen Saturation 99% 03/14/2025 8:26 AM CDT Inhaled Oxygen Concentration - - Weight 91 kg (200 lb 9.9 oz) 03/14/2025 8:26 AM CDT Height 165.1 cm (5' 5) 03/14/2025 8:26 AM CDT Body Mass Index 33.38 03/14/2025 8:26 AM CDT Plan of Treatment Not on file Medical Devices Implanted Type Area Roundhouse Firer/Fireman Device Identifier Shelf Expiration Date Model / Serial / Lot W[employer] 4-7mm 45cm Stretch Peripheral Standard Bottle Caser Graft Vascular [id number] - [id number] - [id number] Implanted:Qty: 1 on 08/19/2022 by Rajendra Dawson MD at [facility] Left: Arm Wl [employer] [id number] 05/11/2027 [id number] / [id number] / Bard Peripheral Vascular Stent Graft Endovascular Arteriovenous [id number] Covera [id number] - [id number] Implanted:Qty: 1 on 12/01/2023 by Rajendra Dawson MD at [facility] Peripheral Vascular 06/19/2025 [id number] / / [id number] Bard Peripheral Vascular Stent Vasc 100mm 6mm 8fr Covera Str Arteriovenous Cover [id number] - [id number] Implanted:Qty: 1 on 12/29/2024 by Rajendra Dawson MD at [facility] Peripheral Vascular 12/23/2025 [id number] / / [id number] Procedures Procedure Name Priority Date/Time Associated Diagnosis [...] valve insufficiency EGFR STAT 12/29/2024 8:36 AM SINK MAKER from Last 3 Months or Most Recently Relevant to Health Maintenance Results * US Hemodialysis Access (03/14/2025 8:34 AM CDT) Anatomical Region Laterality Modality Vascular N/A Ultrasound 03/14/2025 7:53 AM CDT Narrative 03/15/2025 8:48 AM CDT Hemodialysis Access Duplex Report Patient Name: BREONNA ELMORE E : 1945 (79y 6m) Gender: F Study Date: 03/14/2025 07:53:21 AM Auto Bench Mechanic: Yaneli Osman Provider: RAJENDRA DAWSON Ref Provider: [...] Vessel Velocity Lt Location Brach-Ax AVG Lt [place] Artery 139.00 cm/sec Lt Arterial Anast 635.00 cm/sec Lt Prx Graft 329.00 cm/sec Lt Mid Graft VF 775.00 mL/min Lt Venous Anast 190.00 cm/sec Lt [place] Vein 96 (AX V) 148(SCV) cm/sec LEFT STENT MEASUREMENTS: Vessel Velocity Location AVG Lt Stent Prx PSV 388.00 cm/sec Lt Stent Mid PSV 278.00 cm/sec Lt Stent Dst PSV 233.00 cm/sec Location 2 AX V Lt Stent 2 Prx PSV 231.00 cm/sec Lt Stent 2 Mid PSV 242.00 cm/sec Lt Stent 2 Dst PSV 221.00 cm/sec Lt Stent 2 Dst [place] PSV 163.00 cm/sec FINDINGS: Study Quality: The [...] Gender: F Study Date: 03/14/2025 07:53:21 AM Auto Bench Mechanic: Yaneli Osman Provider: RAJENDRA DAWSON Ref Provider: [...] Vessel Velocity Lt Location Brach-Ax AVG Lt [place] Artery 139.00 cm/sec Lt Arterial Anast 635.00 cm/sec Lt Prx Graft 329.00 cm/sec Lt Mid Graft VF 775.00 mL/min Lt Venous Anast 190.00 cm/sec Lt [place] Vein 96 (AX V) 148(SCV) cm/sec LEFT STENT MEASUREMENTS: Vessel Velocity Location AVG Lt Stent Prx PSV 388.00 cm/sec Lt Stent Mid PSV 278.00 cm/sec Lt Stent Dst PSV 233.00 cm/sec Location 2 AX V Lt Stent 2 Prx PSV 231.00 cm/sec Lt Stent 2 Mid PSV 242.00 cm/sec Lt Stent 2 Dst PSV 221.00 cm/sec Lt Stent 2 Dst [place] PSV 163.00 cm/sec FINDINGS: Study Quality: The [...] 8:38:38 AM CDT us Rajendra Dawson MD [facility] PROCEDURES Final Re sult * (ABNORMAL) Pulmonary Function Test - (01/31/2025 8:55 AM CDT) FVC POST 2.17 1.99 - 3.67 L [facility] FEV1 POST 1.63 1.51 - 2.73 L [facility] [id number] 75.15 62.77 - 89.35 % [facility] KSZ93-49% POST 1.24 0.73 - 3.14 L/s [facility] PEF POST 4.85 4.32 - 7.28 L/s [facility] DLCOc SB 11.69(A) 15.77 - 27.23 ml/(min*mm Hg) [facility] DLCO/VA PRE 3.20 2.75 - 5.41 ml/(min*mm Hg*L) [facility] VA 3.65(A) 5.12 - 5.12 L [facility] TLC PRE 4.22(A) 4.29 - 6.26 L [facility] VC PRE 2.19 1.99 - 3.37 L [facility] IC PRE 1.88(A) 2.12 - 2.12 L [facility] FRC PL PRE 2.34 2.01 - 3.65 L [facility] ERV PRE 0.32(A) 0.57 - 0.57 L [facility] RV PRE 2.02 1.69 - 2.84 L [facility] VTG 2.47 L [facility] RAW PRE 6.10(A) 3.06 - 3.06 cmH2O*s/L [facility] FVC PRE 2.17 1.99 - 3.67 L [facility] FEV1 PRE 1.62 1.51 - 2.73 L [facility] [id number] 74.70 62.77 - 89.35 % [facility] NEQ80-70% PRE 1.22 0.73 - 3.14 L/s [facility] PEF PRE 4.45 4.32 - 7.28 L/s [facility] Anatomical Region Laterality Modality PFT 01/31/2025 7:57 [...] MD, FCCP Pulmonary and Critical Care Medicine [facility] us Evan Watkins MD [...] - h EXTERNAL LAB Blood 01/25/2025 Result [facility] Evan Watkins MD LAB BLOOD ORDERABLES Final Result EXTERNAL LAB * (ABNORMAL) eGFR (12/29/2024 8:36 AM SINK MAKER) eGFR 22(L) >=60 mL/min/1. 73 m2 Comment: [...] last reviewed 2021. Blood 12/29/2024 8:36 AM SINK MAKER 12/29/2024 8:39 AM SINK MAKER Result [facility] Rajendra Dawson MD LAB BLOOD ORDERABLES Final Result [facility] [address] [facility] Department [place] [address] from Last 3 Months or Most Recently Relevant to Health Maintenance Insurance [facility] MEDIC[facility] Address: [place] [id number] [facility] MEDICARE ADVANTAGE [facility] Address: [address] [place] [phone] Care Teams Product Assurance Engineer Relationship Specialty Start Date End Date No, Physician PCP - General 12/28/24 Rajendra Dawson MD [address] [facility] [address] [place] [address] Surgeon Surgery 08/19/22
--- OUTSIDE RECORDS SUMMARY | 2025-04-24 18:01 | XMS_ITS ---
Author Organization [facility] Address [address] [place] [address] Care Team Providers Care Lead Nurse Name Role Phone Erinn Dawson MD Unavailable [phone] No, Physician Primary Care Provider Dialysis Access Sites Type Status Location Placement [...] valve insufficiency EGFR STAT 12/29/2024 8:36 AM BLOCKLAYER from Last 3 Months or Most Recently [...] dialysis. Assessment & Plan (12/22/2024 3:30 PM BLOCKLAYER): Symptomatic venous outflow stenosis. Will proceed with [...] to left axillary stent. Plan: Discussed with thermal technician regarding elevated velocities. No concerned for stenosis in this area. -continue utilizing left brachial axillary AV graft for dialysis as per Nephrology. -patient follow-up in 3 months for re-evaluation with repeat AV duplex. Encouraged patient make a sooner appointment if there is any complications during dialysis. Assessment & Plan (11/05/2023 11:06 AM BLOCKLAYER): Currently dialyzing through a left upper extremity [...] 05/08/2022 Assessment & Plan (11/05/2023 11:04 AM BLOCKLAYER): Chronic uncontrolled continue as per PCP. Assessment & Plan (08/04/2023 10:16 AM CDT): Continue current medical management as per PCP Assessment & Plan (01/15/2023 1:05 PM CDT): Stable chronic diabetes being controlled with diet and medication. Continue current medical therapy. Assessment & Plan (10/14/2022 11:35 AM BLOCKLAYER): Impression: Diabetes mellitus currently controlled with insulin. [...] metoprolol Assessment & Plan (11/05/2023 11:05 AM BLOCKLAYER): Controlled continue as per PCP Assessment & Plan (08/04/2023 10:16 AM CDT): Metoprolol, amiodarone Assessment & Plan (04/16/2023 2:23 PM CDT): Metoprolol Assessment & Plan (01/15/2023 1:05 PM CDT): Stable chronic hypertension being controlled medications. Continue current medical therapy Assessment & Plan (10/14/2022 11:36 AM BLOCKLAYER): Impression: Chronic stable hypertension, controlled medications. Blood [...] atorvastatin. Assessment & Plan (11/05/2023 11:05 AM BLOCKLAYER): Continue Lipitor Assessment & Plan (08/04/2023 10:16 AM CDT): Lipitor Assessment & Plan (04/16/2023 2:23 PM CDT): Atorvastatin Assessment & Plan (10/14/2022 11:36 AM BLOCKLAYER): Impression: Chronic hyperlipidemia, controlled with statin therapy. [...] CDT Respiratory Rate 22 12/29/2024 11:30 AM BLOCKLAYER Oxygen Saturation 99% 03/14/2025 8:26 AM CDT [...] Gender: F Study Date: 03/14/2025 07:53:21 AM Crm Campaign Manager: Yaneli Osman Provider: ERINN DAWSON Ref Provider: [...] Vessel Velocity Lt Location Brach-Ax AVG Lt [place] Artery 139.00 cm/sec Lt Arterial Anast 635.00 cm/sec Lt Prx Graft 329.00 cm/sec Lt Mid Graft VF 775.00 mL/min Lt Venous Anast 190.00 cm/sec Lt [place] Vein 96 (AX V) 148(SCV) cm/sec LEFT STENT MEASUREMENTS: Vessel Velocity Location AVG Lt Stent Prx PSV 388.00 cm/sec Lt Stent Mid PSV 278.00 cm/sec Lt Stent Dst PSV 233.00 cm/sec Location 2 AX V Lt Stent 2 Prx PSV 231.00 cm/sec Lt Stent 2 Mid PSV 242.00 cm/sec Lt Stent 2 Dst PSV 221.00 cm/sec Lt Stent 2 Dst [place] PSV 163.00 cm/sec FINDINGS: Study Quality: The [...] Gender: F Study Date: 03/14/2025 07:53:21 AM Crm Campaign Manager: Yaneli Osman Provider: ERINN DAWSON Ref Provider: [...] Vessel Velocity Lt Location Brach-Ax AVG Lt [place] Artery 139.00 cm/sec Lt Arterial Anast 635.00 cm/sec Lt Prx Graft 329.00 cm/sec Lt Mid Graft VF 775.00 mL/min Lt Venous Anast 190.00 cm/sec Lt [place] Vein 96 (AX V) 148(SCV) cm/sec LEFT STENT MEASUREMENTS: Vessel Velocity Location AVG Lt Stent Prx PSV 388.00 cm/sec Lt Stent Mid PSV 278.00 cm/sec Lt Stent Dst PSV 233.00 cm/sec Location 2 AX V Lt Stent 2 Prx PSV 231.00 cm/sec Lt Stent 2 Mid PSV 242.00 cm/sec Lt Stent 2 Dst PSV 221.00 cm/sec Lt Stent 2 Dst [place] PSV 163.00 cm/sec FINDINGS: Study Quality: The [...] 8:38:38 AM CDT us Erinn Dawson MD [facility] US PROCEDURES Final Re sult * (ABNORMAL) Pulmonary Function Test - (01/31/2025 8:55 AM CDT) FVC POST 2.17 1.99 - 3.67 L [facility] FEV1 POST 1.63 1.51 - 2.73 L [facility] [id number] 75.15 62.77 - 89.35 % [facility] WHD72-96% POST 1.24 0.73 - 3.14 L/s [facility] PEF POST 4.85 4.32 - 7.28 L/s [facility] DLCOc SB 11.69(A) 15.77 - 27.23 ml/(min*mm Hg) [facility] DLCO/VA PRE 3.20 2.75 - 5.41 ml/(min*mm Hg*L) [facility] VA 3.65(A) 5.12 - 5.12 L [facility] TLC PRE 4.22(A) 4.29 - 6.26 L [facility] VC PRE 2.19 1.99 - 3.37 L [facility] IC PRE 1.88(A) 2.12 - 2.12 L [facility] FRC PL PRE 2.34 2.01 - 3.65 L [facility] ERV PRE 0.32(A) 0.57 - 0.57 L [facility] RV PRE 2.02 1.69 - 2.84 L [facility] VTG 2.47 L [facility] RAW PRE 6.10(A) 3.06 - 3.06 cmH2O*s/L [facility] FVC PRE 2.17 1.99 - 3.67 L [facility] FEV1 PRE 1.62 1.51 - 2.73 L [facility] [id number] 74.70 62.77 - 89.35 % [facility] MLG46-86% PRE 1.22 0.73 - 3.14 L/s [facility] PEF PRE 4.45 4.32 - 7.28 L/s [facility] Anatomical Region Laterality Modality PFT 01/31/2025 7:57 AM CDT Narrative 01/31/2025 11:51 AM CDT Normal spirometry without obstruction. There is no significant improvement post-bronchodilator therapy. Lung volumes are within normal limits. DLCO is reduced compatible with diffusion impairment. Findings can be seen with emphysema or other pulmonary vascular or pulmonary parenchymal process. Suggest clinical correlation. Electronically signed by Musa Rodriguez MD, [facility] Pulmonary and Critical Care Medicine [facility] Evan Watkins MD PFT ORDERABLES Final Resul t * Lipid panel (01/26/2025 1:34 PM CDT) Blood Historical Provider LAB BLOOD ORDERABLES Maeve l Result * Lipid panel (01/25/2025) Pathologist [facility] SCRIBED Cholesterol, Total 158 l - h EXTERNAL LAB SCRIBED HDL 39 l - h EXTERNAL LAB SCRIBED LDL 84 l - h EXTERNAL LAB SCRIBED Triglycerides 195 l - h EXTERNAL LAB Blood 01/25/2025 Result [facility] Evan Watkins MD LAB BLOOD ORDERABLES Final Result EXTERNAL LAB * (ABNORMAL) eGFR (12/29/2024 8:36 AM BLOCKLAYER) eGFR 22(L) >=60 mL/min/1. 73 m2 Comment: [...] last reviewed 2021. Blood 12/29/2024 8:36 AM BLOCKLAYER 12/29/2024 8:39 AM BLOCKLAYER us Erinn Dawson MD LAB BLOOD ORDERABLES Final Result [facility] [address] [facility] Department [place] [address] from Last 3 Months or Most Recently Relevant to Health Maintenance
--- OUTSIDE RECORDS SUMMARY | 2025-04-24 18:01 | XMS_ITS | Encounter Summary ---
Author Organization [facility] Address [address] [place] [address] Care Team Providers Care Customer Account Manager Name Role Phone Law Robledo MD Primary Care Provider [phone] Antelmo Michele MD Primary Care Provider [phone] Rajendra Dawson MD Unavailable [phone] Lauren León MD Primary Care Provider + No, Physician Primary Care Provider [phone] Encounter Details Date Type Department Care Team (Late st Contact Info) Description 05/21/2022 Telephone [facility] [address] [place] [address] Rajendra Dawson MD [address] [place] [address] [address] [place], [place] [id number] Social History Tobacco Use Types Packs/Day Years [...] on filedocumented in this encounter Care Teams Customer Account Manager Relationship Specialty Start Date End Date Law Robledo MD [address] [place] [address] PCP - General Internal Medicine 05/08/22 08/14/22 Antelmo Michele MD [address] [place] [address] PCP - General Internal Medicine 08/19/22 11/12/22 Lauren León MD [address] [place] [address] PCP - General Family Medicine 11/13/22 12/27/24 No, Physician PCP - General 12/28/24 Rajendra Dawson MD [address] [place] [address] Surgeon Surgery 08/19/22 documented as of this encounter
[2025-04-24 18:06] LABS: Alanine Aminotransferase 23 U/L (6-35); Albumin Level 4.6 g/dL (3.5-5.1); Alkaline Phosphatase 67 U/L (38-126); Anion Gap 11 mmol/L (4-12); Aspartate Amino Transferase 44 U/L (14-36); Bilirubin,Total 0.7 mg/dL (0.2-1.3); Blood Urea Nitrogen 10 mg/dL (7-17); Calcium 9.4 mg/dL (8.4-10.2); Carbon Dioxide 27 mmol/L (22-30); Chloride 93 mmol/L (98-107); Estimated CRCL calculation 26 ml/min; Estimated Glomerular Filt Rate 27; Glucose 110 mg/dL (65-110); Potassium 3.6 mmol/L (3.4-5.0); Sodium 131 mmol/L (137-145); Total Protein 7.6 g/dL (6.3-8.2)
[2025-04-24 18:14] LABS: NT Pro B Type Natriuretic Pept 2730 pg/mL (19.9-100)
--- NOTE | 2025-04-24 18:14 | ED_ITS ---
HPI - SOB/Dyspnea General Chief Complaint: Shortness of Breath/Dyspnea Stated Complaint: Shortness of breath, weakness Time Seen by Provider: 04/24/25 17:23 Source: patient Mode of arrival: ambulatory Limitations: no limitations History of Present Illness HPI Narrative: This is a 79-year-old female that presents the emergency department for cold symptoms. Ongoing over the last couple of days. Reports cough, congestion, shortness of breath. Reports history of ESRD, received dialysis today. Denies fevers or chest pain. Related Data Home Medications ?Medication ?Instructions ?Recorded ?Confirmed ?Last Taken ?Type apixaban 2.5 mg tablet (Eliquis) 2.5 mg PO BID 08/30/22 08/07/24 08/29/22 09:00 History atorvastatin 40 mg tablet 40 mg PO HS 08/30/22 08/07/24 08/28/22 21:00 History cholecalciferol (vitamin D3) 1,250 1,250 mcg PO WEEKLY 08/30/22 08/07/24 08/27/22 09:00 History mcg (50,000 unit) capsule levothyroxine 75 mcg tablet 75 mcg PO QAM 08/30/22 08/07/24 08/29/22 09:00 History metoprolol tartrate 50 mg tablet 50 mg PO Q12HR 08/07/24 08/07/24 Unknown History (Lopressor) midodrine 10 mg tablet See Rx Instructions .Route 08/07/24 08/07/24 Unknown History .COMPLEX hypotension Allergies Allergy/AdvReac Type Severity Reaction Status Date / Time No Known Allergies Allergy Verified 04/24/25 13:21 Review of Systems 2 Review of Systems: All systems reviewed & are unremarkable except as noted in HPI and below PMFSH Past Medical History Medical History Atrial fibrillation status post cardioversion Borderline diabetes End stage renal disease Erythropoietin deficiency anemia Hyperlipidemia Hypertension Hypothyroid Renal osteodystrophy Surgical History Surgical History AV fistula History of hysterectomy partial History of tubal ligation at 32 yo Family History Family History Sibling Adopted (not a blood relative) Father Accident at workplace Mother Breast cancer Social History Social History Social History: Patient selects her son, Maxx Ramirez, as surrogate decision maker. Smoking packs per day: 2 Smoking cigarettes per day: 40.0 Years smoked: 40 Smoking pack-years: 80.00 Smoking status: Former smoker Second hand tobacco smoke exposure: No Alcohol intake: current Drinks per week: 7 Alcohol use details: daily wine or beer Substance use: never Substance use type: does not use Do You Feel Safe in your Home?: Yes Lack of Transportation: No Lack of Food: Never True Current Housing: I Have Housing Concerned About Future Housing: No Difficulty Paying Gas/Electric Bills: No Difficulty Paying for Meds: No Currently Unemployed: No Education: High School Diploma/GED Difficulty w/ Childcare or Family Care: No Living arrangements: with family Additional living arrangements comments: sister Occupation/Education: unemployed Gender identity (if verbalized by the patient): Female Spiritual care concerns: No Exam 2 Narrative: GENERAL: Elderly, well-nourished, and in no acute distress. HEAD: Normocephalic, atraumatic. EYES: EOMI. ENT: Nares clear, no rhinorrhea or epistaxis. Mucous membranes moist. Oropharynx without tonsillar hypertrophy exudate or other lesions. NECK: Supple. No adenopathy or masses. CHEST: No respiratory distress. Scattered wheezing. Rales in the left lower lobe. No rhonchi HEART: Regular rate and rhythm. No murmur heard. Normal peripheral pulses. EXTREMITIES: Normal range of motion. No edema. SKIN: Warm, dry, no rash. NEURO: No focal deficits. Alert and oriented x3. PSYCH: Normal mood and affect Course Course Emergency Course: Patient was updated on her workup and recommendation for admission. She would like to trial further management outpatient with oral antibiotics Vital Signs Vital signs: Vital Signs Temperature 98.1 F 04/24/25 13:53 Pulse Rate 100 04/24/25 13:53 Respiratory Rate 20 04/24/25 13:53 Blood Pressure 100/66 04/24/25 13:53 Pulse Oximetry 96 04/24/25 13:53 Oxygen Delivery Room Air 04/24/25 13:53 Temperature 97.7 F 04/24/25 16:22 Pulse Rate 99 04/24/25 20:15 Respiratory Rate 25 H 04/24/25 20:15 Blood Pressure 104/63 04/24/25 19:46 Pulse Oximetry 96 04/24/25 20:15 Oxygen Delivery Room Air 04/24/25 17:48 MDM - SOB/Dyspnea MDM Narrative Medical decision making narrative: Patient presents the emergency department for shortness of breath, productive cough. She is afebrile and nontoxic appearing. Her vitals are stable. Cbc without leukocytosis. Metabolic panel with evidence of patient's end-stage renal disease. Influenza, RSV and COVID screens are negative. Chest x-ray showing left lower lobe pneumonia. Patient given nebulizer treatment, steroid, IV antibiotics. Patient was updated on her workup and recommendation for admission. She would like to trial further management outpatient with oral antibiotics. She was given warnings to return to the ER Differential Diagnosis Differential diagnosis: Likely acute exacerbation of chronic obstructive airways disease, congestive heart failure and community acquired pneumonia Lab Data Attestation: I reviewed the patient's lab results. 04/24/25 17:44 04/24/25 17:44 Labs: Lab Results 04/24/25 Range/Units 17:44 WBC 5.2 (4.5-10.0) K/mm3 RBC 4.20 (4.2-5.4) M/mm3 Hgb 12.9 D (12.0-15.0) g/dL Hct 40.2 (37.0-47.0) % MCV 95.7 (80-100) fl MCH 30.7 (26-34) pg MCHC 32.1 (32-36) g/dl RDW 14.5 (11.5-14.5) % Plt Count 230 (150-375) k/mm3 MPV 9.3 (7.4-10.4) fl Immature Gran % (Auto) 0.6 H (0-0.5) % Neut % (Auto) 56.2 (45.5-73.1) % Lymph % (Auto) 28.5 (18.3-44.2) % [place] % (Auto) 10.4 H (2.6-8.5) % Eos % (Auto) 3.7 (0-4.4) % Baso % (Auto) 0.6 (0.2-1.2) % Lymph # (Auto) 1.48 (0.9-3.2) K/mm3 [place] # (Auto) 0.5 (0.1-0.6) K/mm3 Eos # (Auto) 0.2 (0-0.3) K/mm3 Baso # (Auto) 0.0 (0.0-0.1) K/mm3 Abs Immat Gran (auto) 0.03 (0.00-0.031) K/mm3 Absolute Neuts (auto) 2.9 (1.3-6.7) K/mm3 Absolute Nucleated RBC 0.000 (0.0-0.012) K/mm3 Nucleated RBC % 0.0 (0.0-0.2) % Sodium 131 L (137-145) mmol/L Potassium 3.6 (3.4-5.0) mmol/L Chloride 93 L (98-107) mmol/L Carbon Dioxide 27 (22-30) mmol/L Anion Gap 11 (4-12) mmol/L BUN 10 D (7-17) mg/dL Creatinine 1.81 H (0.7-1.0) mg/dL Estim Creat Clear Calc 26 ml/min Estimated GFR 27 L (59 - ) Glucose 110 (65-110) mg/dL Calcium 9.4 (8.4-10.2) mg/dL Total Bilirubin 0.7 (0.2-1.3) mg/dL AST 44 H (14-36) U/L ALT 23 (6-35) U/L Alkaline Phosphatase 67 (38-126) U/L NT-Pro-B Natriuret Pep 2730 H (19.9-100) pg/mL Total Protein 7.6 (6.3-8.2) g/dL Albumin 4.6 (3.5-5.1) g/dL Influenza A (RT-PCR) Negative (Negative) Influenza B (RT-PCR) Negative (Negative) RSV (RT-PCR) Negative (Negative) SARS-CoV-2 RNA (RT-PCR) Negative (Negative) Imaging Data Radiologist's impression: ITS Impressions Chest X-Ray 04/24/25 18:01 IMPRESSION: Recurrent/residual left basilar atelectasis/consolidation and small left pleural effusion versus chronic scarring and pleural blunting. Critical Care Time Critical Care Time Critical Care Time: No Discharge Plan Discharge Clinical Impression: Pneumonia Qualifiers: Pneumonia type: due to unspecified organism Laterality: left Lung location: l ower lobe of lung Qualified Code(s): J18.9 - Pneumonia, unspecified organism Patient Disposition: Home Condition: Stable Instructions: Antibiotic Form, Community Acquired Pneumonia (ED) Additional Instructions: Return to the emergency department for worsening symptoms, or any other concerns Take oral antibiotics as prescribed. Albuterol 2 puffs every 4-6 hours as needed for shortness of breath or wheezing. Continue steroid as prescribed Follow up with your primary care doctor Patient Language: Maori Prescriptions: New azithromycin 250 mg tablet 250 mg PO DAILY 4 Days Qty: 4 0RF Rx Instructions: start on day 2 of therapy albuterol sulfate [Ventolin HFA] 90 mcg/actuation HFA aerosol inhaler 2 puff inhalation QID PRN (Reason: shortness of breath or wheezing) Qty: 8.5 0RF prednisone 20 mg tablet 40 mg PO DAILY 4 Days Qty: 8 0RF amoxicillin-pot clavulanate 875-125 mg tablet 1 tablet PO Q12H 4 Days Qty: 8 0RF No Action atorvastatin 40 mg tablet 40 mg PO HS Eliquis 2.5 mg tablet 2.5 mg PO BID levothyroxine 75 mcg tablet 75 mcg PO QAM cholecalciferol (vitamin D3) 1,250 mcg (50,000 unit) capsule 1,250 mcg PO WEEKLY Rx Instructions: Pt takes on Wednesdays furosemide 80 mg Tablet 80 mg PO BID Qty: 60 0RF potassium chloride [K-Tab] 20 mEq Tablet Extended Release 40 meq PO DAILY@0800 Qty: 10 0RF metoprolol tartrate [Lopressor] 50 mg tablet 50 mg PO Q12HR midodrine 10 mg tablet See Rx Instructions .ROUTE .COMPLEX Rx Instructions: once daily on dialysis days MWF Follow-up/Referrals: Ryne,Antelmo Hull MD [Non-Staff] -
[2025-04-24] MEDS: IPRATROPIUM 0.5 MG/ALBUTEROL SULFATE 2.5 MG AMPUL.NEB 3 ML INHALATION (18:29)
[2025-04-24 18:31] LABS: Influenza A QL RT-PCR Negative (Negative); Influenza B QL RT-PCR Negative (Negative); RSV RNA, RT-PCR. Negative (Negative); SARS-CoV-2 RNA PCR Negative (Negative)
--- NOTE | 2025-04-24 19:39 | PC.NURSE ---
Report received from DIMTIRY Romo. Assumed care of patient at this time.
[2025-04-24] MEDS: methylPREDNISolone SOD SUCC 125 MG VIAL IV PUSH (20:01)
[2025-04-24] MEDS: AZITHROMYCIN 500 MG/NS 250 ML 500 MG/250 ML BAG 250 MG IVPB (20:38)
== END 2025-04-24 22:30 | disposition home or self-care (01) ==
PROVIDERS: Emergency Provider Physician Assistant
DX: J18.9 Pneumonia, unspecified organism (principal); Z20.822 Contact with and (suspected) exposure to COVID-19; I12.0 Hypertensive chronic kidney disease with stage 5 chronic kidney disease or end stage renal disease; N18.6 End stage renal disease; D63.1 Anemia in chronic kidney disease; E78.5 Hyperlipidemia, unspecified; E03.9 Hypothyroidism, unspecified
CPT/HCPCS: 36415; 71046; 80053; 83880; 85025; 87040; 87637; 94640; 94664; 96365; 96367; 96375; 99284; J0456; J0696; J2919